=== PATIENT | female | born 1965 | race Caucasian/White ===

== ENCOUNTER → 2017-07-24 11:08 | Outpatient (CLI) | payer BC, SELFPAY ==
--- NOTE | 2017-07-24 11:11 | RAD_ITS ---
STUDY: X-RAY CHEST REASON FOR EXAM: Female, 52 years old. One-week history of chest congestion and cough. TECHNIQUE: PA and lateral views of the chest. COMPARISON: None. FINDINGS: The lungs are clear and expanded. There is no demonstrated pleural abnormality. Normal size heart. Normal mediastinum and jose. Normal visualized pulmonary arteries. Normal visualized aortic arch and descending thoracic aorta. Normal visualized thoracic spine. Normal visualized ribs, clavicles, and shoulders. There is no demonstrated abnormality of the visualized soft tissue structures of the upper abdomen. RAD/Chest PA and Lateral IMPRESSION: Normal x-ray examination of the chest. Electronically Signed: Alfonso Caputo MD at 11:34 EST Tel [phone], Service support ,
== END ==
PROVIDERS: Family Provider Internal Medicine; PCP Internal Medicine; Visit Provider Physician Assistant Surgical
DX: R09.89 Other specified symptoms and signs involving the circulatory and respiratory systems (principal)
CPT/HCPCS: 71046

== ENCOUNTER 2018-04-11 09:53 | Observation (INO) | payer OTHER, SELFPAY ==
[2018-04-11] VITALS (8 sets, daily range): BP systolic 114–147; BP diastolic 57–89; PULSE 65–112; RESP 15–18; TEMP 36.6–36.8; O2SAT 94–97; BMI 26.5; BMI 26.9
--- NOTE | 2018-04-11 10:09 | EKG12_ITS ---
Test Reason : REPEAT Blood Pressure : / mmHG Vent. Rate : 064 BPM Atrial Rate : 064 BPM P-R Int : 142 ms QRS Dur : 092 ms QT Int : 444 ms P-R-T Axes : 052 018 007 degrees QTc Int : 458 ms Normal sinus rhythm Incomplete right bundle branch block ST & T wave abnormality, consider anterior ischemia Abnormal ECG Confirmed by JANAK AKERS, CORA ([id number]), film or videotape editor BEREKET VICK ([id number]) on 04/14/2018 1:00:19 PM Referred By: SAUL Confirmed By:CORA BRICENO MD
--- NOTE | 2018-04-11 10:09 | US_ITS ---
STUDY: ABDOMINAL ULTRASOUND - RIGHT UPPER QUADRANT REASON FOR VISIT: Female, 52 years old. Right upper quadrant pain TECHNIQUE: Ultrasound evaluation of the right upper quadrant was performed with real-time and static mantilla-scale imaging. TECHNICAL QUALITY: Adequate. COMPARISON: None. FINDINGS: Liver: The liver measures 14.1 cm. There is normal echogenicity of the liver. The bile ducts are within normal limits. There is hepatic color flow. The direction of portal flow is hepatopetal. There is no demonstrated mass lesion. Gallbladder: Normal distended gallbladder. The gallbladder wall measures 2.5 mm. There is a negative sonographic Chang's sign. There is no pericholecystic fluid. There are no gallstones. Common Bile Duct (C.B.D.): The common bile duct measures 3.4 mm. Pancreas: Normal size of the head, body and tail of the pancreas. There is increased echogenicity of the pancreas. There is no demonstrated pancreatic mass or cyst. Right Kidney: Normal size of the right kidney. The right kidney measures 10.1 x 5.0 x 4.6 cm. Normal renal cortex. The right cortex measures 1.4 cm. There is no demonstrated renal mass or cyst. There is no right hydronephrosis. US/Gallbladder IMPRESSION: Normal gallbladder. No cholelithiasis or biliary dilatation. Echogenic pancreas may be due to fatty infiltration. Electronically Signed: Medhat Person DO at 12:33 EST Tel [phone], Service support ,
--- NOTE | 2018-04-11 10:20 | ED.DCSUM_ITS ---
- ER Visit Summary Date of Service: 04/11/18 Chief Complaint: Burning in lower stomach History of Present Illness: The patient is a 52 F hypothyroidism. Prior hysterectomy. Patient states she had a local area restaurant on Thursday. Since that time she has had nausea vomiting and diarrhea. No melena. No fever. No dysuria. Feels that she is dehydrated. She is also had burning chest discomfort radiating to both arms. Prior to Thursday she had no exertional chest pain or exertional dyspnea. She has no known cardiac history. Physical Examination: Middle-aged female no acute distress. Vital signs are stable. She is afebrile. She does not look septic or toxic. H EENT exam unremarkable except for dry mucous membranes. Neck nontender. No JVD no lymphadenopathy. Lungs are clear to auscultation bilaterally. Heart is regular rhythm rate about 110 no murmur. Chest wall is nontender. Abdomen is soft. Nondistended. Normal bowel sounds. She does have mild right upper quadrant tenderness. No rebound or guarding or rigidity. No Chang sign. Right lower quadrant unremarkable. There are no hernias or masses. She is moving all 4 extremities. Calves are nontender without edema. Skin is dry. No diaphoresis. Back is nontender. Neurologically she is awake and alert with no focal motor deficits. Test Results: Her initial EKG shows a sinus rhythm at a rate of 92 with inverted T waves and ST depression in V3 through V6. This is new compared to a prior EKG but the most recent EKG we have for comparison is from 2010. Ultrasound of her right upper quadrant showed no acute abnormality. No gallstones. No cholecystitis. No dilatation of the ducts or fluid. CBC normal. BMP normal. Liver enzymes normal. Lipase normal. Troponin normal. A second troponin is pending. Chest x-ray shows no acute abnormality with some right lower lobe atelectasis. Emergency Department Course and Treatment: Patient will undergo a workup both for chest pain and right upper quadrant abdominal pain. Will be treated with Toradol, a liter of fluid and Zofran. Patient had continued nausea was given a second dose of Zofran and then some Phenergan because she had continued nausea. Treatment Plan: Patient continued nausea. Her only objective finding is an abnormal EKG in leads V3 through V6. That is changed with the most recent EKG is 7 years ago. Due to her intractable nausea and the abnormal EKG I will speak to the hospitalist about admission and further evaluation. Disposition: Admission Impression: Acute abdominal pain with nausea of uncertain etiology Abnormal EKG This note was generated with [employer] Direct dictation software. It may contain incorrect words, spelling, and punctuation that were not noted in review of the chart prior to signing ED Disposition - Plan for ED Patient: Chief Complaint: Dizziness Referrals: Patel Nolasco DO [Primary Care Provider] -
--- NOTE | 2018-04-11 10:29 | RAD_ITS ---
STUDY: X-RAY CHEST REASON FOR EXAM: Female, 52 years old. Chest pain, nausea TECHNIQUE: Single AP portable view of the chest. COMPARISON: July 24, 2017 chest x-ray FINDINGS: There are chronic appearing lung markings which are slightly enhanced in the right lower lobe likely secondary to technique or atelectasis. There is no demonstrated pleural abnormality. There is borderline cardiomegaly. Normal mediastinum and jose. Normal visualized pulmonary arteries. Normal visualized aortic arch and descending thoracic aorta. Normal visualized thoracic spine. Normal visualized ribs, clavicles, and shoulders. There is no demonstrated abnormality of the visualized soft tissue structures of the upper abdomen. RAD/Chest 1 View (Portable) IMPRESSION: Chronic appearing lung markings. Right lower lobe atelectasis. Electronically Signed: Aundrea Edouard MD at 10:43 EST Tel , Service support ,
[2018-04-11] MEDS: 0.9% Normal Saline 1,000 ML 1000 ML IV (10:35)
[2018-04-11] MEDS: Ketorolac 30 MG/ML Syringe IV (10:36)
[2018-04-11] MEDS: Ondansetron 4 MG/2 ML Vial IV ×3 (10:36→17:25)
[2018-04-11 11:00] LABS: AST(SGOT) 18 U/L (15-37); Alanine Aminotransfer ALT/SGPT 22 U/L (13-56); Alkaline Phosphatase 71 U/L (45-117); Anion Gap 7 (5-15); BUN 11 mg/dL (7-18); Bilirubin, Direct 0.08 mg/dL (0.00-0.30); Calcium,Total 8.6 mg/dL (8.5-10.1); Chloride 109 mmol/L (98-107); Creatinine, Serum 0.69 mg/dL (0.55-1.02); EST Glomerular Filtration Rate 95 mL/min (>60); Est Glom Filt Rate - Afr Amer 115 mL/min (>60); Globulin 3.6 g/dL (2.2-4.2); Glucose 101 mg/dL (74-106); Lipase 53 U/L (73-393); Protein, Total 7.6 g/dL (6.4-8.2); Sodium Level 141 mmol/L (136-145)
[2018-04-11 11:02] LABS: Absolute Lymphocyte Count 1.97 X10^3/ul (0.83-4.51); Absolute Neutrophil Count 5.7 X10^3/uL (2.0-7.7); Basophil# 0.03 X10^3/uL; Basophil% 0.4 % (0-1); Eosinophil# 0.02 X10^3/uL; Eosinophils% 0.2 % (0-5); Hematocrit 36.3 % (37-47); Lymphocyte # 1.97 X10^3/ul (4.0); Lymphocyte % 24.3 % (19-41); Mean Corp Hgb Conc 33.1 g/gl (32-36); Mean Corpuscular Hgb 30.4 pg (27.0-32.0); Mean Corpuscular Volume 91.9 fL (81-99); Mean Platelet Vol. 9.1 fl (6.2-12.0); Monocyte# 0.39 X10^3/uL; Monocyte% 4.8 % (0-10); Neutrophil # 5.68 X10^3/uL (2.7-7.7); Neutrophil % 70.1 % (47-70); POSITIVE COUNT NO; POSITIVE DIFFERENTIAL NO; POSITIVE MORPHOLOGY NO; Platelet Count 257 K/mm3 (150-450); RBC Distribution Width CV 12.7 % (11.6-14.6); RBC Distribution Width SD 42.9 fl (35.1-43.9); Red Blood Count 3.95 M/mm3 (4.2-5.4); White Blood Count 8.1 K/mm3 (4.4-11.0)
--- NOTE | 2018-04-11 12:13 | EKG12_ITS ---
Test Reason : CHEST DISCOMFORT Blood Pressure : / mmHG Vent. Rate : 092 BPM Atrial Rate : 092 BPM P-R Int : 124 ms QRS Dur : 090 ms QT Int : 378 ms P-R-T Axes : 046 012 008 degrees QTc Int : 467 ms Normal sinus rhythm ST & T wave abnormality, consider anterior ischemia Prolonged QT Abnormal ECG Confirmed by JANAK AKERS, CORA ([id number]), map editor BEREKET VICK ([id number]) on 04/14/2018 1:00:37 PM Referred By: SAUL Confirmed By:CORA BRICENO MD
[2018-04-11] MEDS: proMETHazine 25 MG/ML Syringe 12.5 MG IV (13:45)
--- NOTE | 2018-04-11 14:40 | PCM.HP.STD ---
Problem List (1) Chest pain Status: Acute (2) Gastroenteritis Status: Acute History of Present Illness Date of Admission: 04/11/18 Chief Complaint: chest and abdominal pain, nausea, vomiting. The patient is a 52 year old F presents with a 5-day history of chest pain, abdominal pain, nausea, vomiting, diarrhea and abdominal bloating. Patient had symptoms but less severe in the 4 but has never had them been evaluated before. Patient stated the chest pain was across her chest and also down her arms but similar to what she said in the past. Patient was concerned because the symptoms are unresolved. Patient presented to the ED ER with the symptoms and had an EKG that showed some ST depressions in the lateral leads. Patient being admitted for further chest pain rule out and evaluation. [] Past Medical History Past Medical History (Chronic Problems): Chronic Problems (Last Reviewed 07/24/17 @ 10:55 by Bernie Malik) Tobacco use disorder (Chronic) Medical History: Medical History (Last Updated 04/11/18 @ 14:42 by Ruddy Stone DO) H/O: hysterectomy Z90.710 Anemia D64.9 Cervical cancer C53.9 H/O: hysterectomy Z98.890, Z90.710 Allergies No Known Allergies Allergy (Unverified 04/11/18 09:53) Home Medications: Ambulatory Orders Medication Instructions Recorded Unobtainable 04/11/18 Surgical History: Surgical History (Last Reviewed 04/11/18 @ 14:42 by Ruddy Stone DO) H/O knee surgery Z98.890 Surgical History: no surgical history Psychiatric History: No pertinent psych hx Lives: With Family Smoking Status: Former smoker - Quit August 23, 2017. Tobacco Use: Non-smoker Alcohol: None Drugs: None - *Family History Maternal Family History: Family History (Last Reviewed 04/11/18 @ 14:43 by Ruddy Stone DO) Other Diabetes Heart disease Review of Systems Constitutional: Reports: Anorexia. Denies: Chills, Fever Eyes: Denies: Blurred vision, Double vision HEENT: Denies: Head Aches, Sinus Congestion, Sinus Drainage Cardiovascular: Reports: Chest Pain. Denies: Edema Respiratory: Denies: Cough, Shortness of Breath Gastrointestinal: Reports: Abdominal Pain, Diarrhea, Nausea, Vomiting Genitourinary: Denies: Dysuria Musculoskeletal: Reports: Arm Pain. Denies: Leg Pain Skin: Denies: Rash, Wounds Neurological: Denies: Numbness, Tingling, Focal weakness Psychiatric: Denies: Anxiety, Depression Endocrine: Denies: Change in Body Habitus, Heat/ Cold Intolerance Hematologic/ Lymphatic: Denies: Easy Bruising, Easy Bleeding, Hx of blood clot Comment: A 10 point review of systems were negative except as mentioned in the history of present illness and the other review of systems. VTE Information - Inpt Only VTE Present on Admission: No VTE Pharm Prophylaxis ordered?: Yes Patient Problems: Active and Suspected Problems (Last Reviewed 07/24/17 @ 10:55 by Bernie Malik) Chest pain (Acute) Gastroenteritis (Acute) - Physical Exam General: Alert, Well developed, Well nourished, - - Uncomfortable. Nearly retched while was there. HEENT: Atraumatic, Normocephalic Oral: Moist Mucosa, No Gingival or Mucosal Lesions/ Ulcerations Neck: No Nodes, Thyroid Normal Size and Texture Lungs: Clear to auscultation, Normal air movement, No rhonchi, No wheeze Cardiovascular: Regular rate, Regular Rhythm, Normal S1, Normal S2, No murmurs Abdomen: Bowel Sounds Present, Soft, Hypoactive Bowel Sounds, Distended, Tender - Tender Extremities: No edema, No Calf Tenderness Skin: No rashes, No breakdown Musculoskeletal: No Tenderness to Palpation of Joints or Extremities, No Muscle Wasting Neurological: Muscle tone normal, Sensory exam intact to light touch and pain Psych/Mental Status: Appropriate, Anxious Vital Signs Temp Pulse Resp BP Pulse Ox 36.7 C 79 16 123/58 H 95 04/11/18 14:28 04/11/18 14:32 04/11/18 14:32 04/11/18 14:32 04/11/18 14:32 Oxygen Delivery Method Room Air Weight: 68.039 kg Body Mass Index (BMI) 26.5 Laboratory Tests Past 24 Hrs 04/11/18 04/11/18 04/11/18 10:30 10:30 10:50 WBC Cancelled 8.1 Corrected WBC Cancelled RBC Cancelled 3.95 L Hgb Cancelled 12.0 Hct Cancelled 36.3 L MCV Cancelled 91.9 MCH Cancelled 30.4 MCHC Cancelled 33.1 RDW Cancelled 12.7 RDW Differential Cancelled 42.9 Plt Count Cancelled 257 MPV Cancelled 9.1 Immature Gran % (Auto) Cancelled 0.200 Neut % (Auto) Cancelled 70.1 H Lymph % (Auto) Cancelled 24.3 [place] % (Auto) Cancelled 4.8 Eos % (Auto) Cancelled 0.2 Baso % (Auto) Cancelled 0.4 Immature Gran # (Auto) Cancelled Absolute Neuts (auto) Cancelled 5.7 Absolute Lymphs (auto) Cancelled 1.97 Absolute Monos (auto) Cancelled Total Counted Cancelled Not Reportable Neutrophils % (Manual) Cancelled Band Neutrophils % Cancelled Lymphocytes % (Manual) Cancelled Monocytes % (Manual) Cancelled Eosinophils % (Manual) Cancelled Basophils % (Manual) Cancelled Metamyelocytes % Cancelled Myelocytes % Cancelled Promyelocytes % Cancelled Blast Cells % Cancelled Plasma Cell % (Manual) Cancelled Other Cells % Cancelled Lymphocytes # Cancelled Nucleated RBCs/100 WBC Cancelled Differential Comment Cancelled Diff Path Review Cancelled Hypersegmented Neuts Cancelled Atypical Lymphocytes Cancelled Reactive Lymphocytes Cancelled Smudge Cells Cancelled Eosinophilia # Cancelled Basophilia # Cancelled Toxic Granulation Cancelled Dohle Bodies Cancelled Ev Rods Cancelled Platelet Estimate Cancelled Plt Morphology Comment Cancelled RBC Morphology Cancelled Polychromasia Cancelled Hypochromasia Cancelled Poikilocytosis Cancelled Basophilic Stippling Cancelled Anisocytosis Cancelled Microcytosis Cancelled Macrocytosis Cancelled Spherocytes Cancelled Sickle Cells Cancelled Target Cells Cancelled Tear Drop Cells Cancelled Ovalocytes Cancelled Stomatocytes Cancelled [place] Bodies Cancelled Idania Cells Cancelled Bite Cells Cancelled Acanthocytes (Spur) Cancelled Rouleaux Cancelled Schistocytes Cancelled Sodium 141 Potassium 4.0 Chloride 109 H Carbon Dioxide 25.0 Anion Gap 7 BUN 11 Creatinine 0.69 Estim Creat Clear Calc 78.00 Est GFR (MDRD) Af Amer 115 Est GFR (MDRD) Non-Af 95 BUN/Creatinine Ratio 16.0 Glucose 101 Calcium 8.6 Total Bilirubin 0.40 Direct Bilirubin 0.08 AST 18 ALT 22 Alkaline Phosphatase 71 Troponin I < 0.015 Total Protein 7.6 Albumin 4.0 Globulin 3.6 Lipase 53 L 04/11/18 13:29 WBC Corrected WBC RBC Hgb Hct MCV MCH MCHC RDW RDW Differential Plt Count MPV Immature Gran % (Auto) Neut % (Auto) Lymph % (Auto) [place] % (Auto) Eos % (Auto) Baso % (Auto) Immature Gran # (Auto) Absolute Neuts (auto) Absolute Lymphs (auto) Absolute Monos (auto) Total Counted Neutrophils % (Manual) Band Neutrophils % Lymphocytes % (Manual) Monocytes % (Manual) Eosinophils % (Manual) Basophils % (Manual) Metamyelocytes % Myelocytes % Promyelocytes % Blast Cells % Plasma Cell % (Manual) Other Cells % Lymphocytes # Nucleated RBCs/100 WBC Differential Comment Diff Path Review Hypersegmented Neuts Atypical Lymphocytes Reactive Lymphocytes Smudge Cells Eosinophilia # Basophilia # Toxic Granulation Dohle Bodies Ev Rods Platelet Estimate Plt Morphology Comment RBC Morphology Polychromasia Hypochromasia Poikilocytosis Basophilic Stippling Anisocytosis Microcytosis Macrocytosis Spherocytes Sickle Cells Target Cells Tear Drop Cells Ovalocytes Stomatocytes [place] Bodies [place] Cells Bite Cells Acanthocytes (Spur) Rouleaux Schistocytes Sodium Potassium Chloride Carbon Dioxide Anion Gap BUN Creatinine Estim Creat Clear Calc Est GFR (MDRD) Af Amer Est GFR (MDRD) Non-Af BUN/Creatinine Ratio Glucose Calcium Total Bilirubin Direct Bilirubin AST ALT Alkaline Phosphatase Troponin I < 0.015 Total Protein Albumin Globulin Lipase Clinical Impression(s) from Imaging Studies Gallbladder Ultrasound 04/11/18 10:09 IMPRESSION: Normal gallbladder. No cholelithiasis or biliary dilatation. Echogenic pancreas may be due to fatty infiltration. Electronically Signed: Medhat Person DO at 12:33 EST Tel [phone], Service support , Chest X-Ray 04/11/18 10:29 IMPRESSION: Chronic appearing lung markings. Right lower lobe atelectasis. Electronically Signed: Aundrea Edouard MD at 10:43 EST Tel , Service support , EKG reviewed and showed normal sinus rhythm with some ST depressions in the anterolateral leads. Assessment/Plan All Active Problems (Last Reviewed 07/24/17 @ 10:55 by Bernie Malik) Chest pain (Acute) Gastroenteritis (Acute) Acute bronchitis (Acute) Chest congestion (Acute) Maxillary sinusitis, acute (Acute) 1. Chest pain TERRENCE 3 TEODORO 122 concern for cardiac etiology cycle troponins (initial 2 negative), ASA, stress test 2. Abdominal pain cardiac v IBS v PUD v ileus/SBO v psychosomatic check abd xray PPI follow up with GI as outpt antiemetics 3. DVT proph: SCDs Discussed with patient's family at bedside. Code Visit OBSV E&M: 95096 Initial observation care L3
--- NOTE | 2018-04-11 14:44 | HP.PCM_ITS ---
Problem List (1) Chest pain Status: Acute (2) Gastroenteritis Status: Acute History of Present Illness Date of Admission: 04/11/18 Chief Complaint: chest and abdominal pain, nausea, vomiting. The patient is a 52 year old F presents with a 5-day history of chest pain, abdominal pain, nausea, vomiting, diarrhea and abdominal bloating. Patient had symptoms but less severe in the 4 but has never had them been evaluated before. Patient stated the chest pain was across her chest and also down her arms but similar to what she said in the past. Patient was concerned because the symptoms are unresolved. Patient presented to the ED ER with the symptoms and had an EKG that showed some ST depressions in the lateral leads. Patient being admitted for further chest pain rule out and evaluation. [] Past Medical History Past Medical History (Chronic Problems): Chronic Problems (Last Reviewed 07/24/17 @ 10:55 by Bernie Malik) Tobacco use disorder (Chronic) Medical History: Medical History (Last Updated 04/11/18 @ 14:42 by Ruddy Stone DO) H/O: hysterectomy Z90.710 Anemia D64.9 Cervical cancer C53.9 H/O: hysterectomy Z98.890, Z90.710 Allergies No Known Allergies Allergy (Unverified 04/11/18 09:53) Home Medications: Ambulatory Orders Medication Instructions Recorded Unobtainable 04/11/18 Surgical History: Surgical History (Last Reviewed 04/11/18 @ 14:42 by Ruddy Stone DO) H/O knee surgery Z98.890 Surgical History: no surgical history Psychiatric History: No pertinent psych hx Lives: With Family Smoking Status: Former smoker - Quit August 23, 2017. Tobacco Use: Non-smoker Alcohol: None Drugs: None - *Family History Maternal Family History: Family History (Last Reviewed 04/11/18 @ 14:43 by Ruddy Stone DO) Other Diabetes Heart disease Review of Systems Constitutional: Reports: Anorexia. Denies: Chills, Fever Eyes: Denies: Blurred vision, Double vision HEENT: Denies: Head Aches, Sinus Congestion, Sinus Drainage Cardiovascular: Reports: Chest Pain. Denies: Edema Respiratory: Denies: Cough, Shortness of Breath Gastrointestinal: Reports: Abdominal Pain, Diarrhea, Nausea, Vomiting Genitourinary: Denies: Dysuria Musculoskeletal: Reports: Arm Pain. Denies: Leg Pain Skin: Denies: Rash, Wounds Neurological: Denies: Numbness, Tingling, Focal weakness Psychiatric: Denies: Anxiety, Depression Endocrine: Denies: Change in Body Habitus, Heat/ Cold Intolerance Hematologic/ Lymphatic: Denies: Easy Bruising, Easy Bleeding, Hx of blood clot Comment: A 10 point review of systems were negative except as mentioned in the history of present illness and the other review of systems. VTE Information - Inpt Only VTE Present on Admission: No VTE Pharm Prophylaxis ordered?: Yes Patient Problems: Active and Suspected Problems (Last Reviewed 07/24/17 @ 10:55 by Bernie Malik) Chest pain (Acute) Gastroenteritis (Acute) - Physical Exam General: Alert, Well developed, Well nourished, - - Uncomfortable. Nearly retched while was there. HEENT: Atraumatic, Normocephalic Oral: Moist Mucosa, No Gingival or Mucosal Lesions/ Ulcerations Neck: No Nodes, Thyroid Normal Size and Texture Lungs: Clear to auscultation, Normal air movement, No rhonchi, No wheeze Cardiovascular: Regular rate, Regular Rhythm, Normal S1, Normal S2, No murmurs Abdomen: Bowel Sounds Present, Soft, Hypoactive Bowel Sounds, Distended, Tender - Tender Extremities: No edema, No Calf Tenderness Skin: No rashes, No breakdown Musculoskeletal: No Tenderness to Palpation of Joints or Extremities, No Muscle Wasting Neurological: Muscle tone normal, Sensory exam intact to light touch and pain Psych/Mental Status: Appropriate, Anxious Vital Signs Temp Pulse Resp BP Pulse Ox 36.7 C 79 16 123/58 H 95 04/11/18 14:28 04/11/18 14:32 04/11/18 14:32 04/11/18 14:32 04/11/18 14:32 Oxygen Delivery Method Room Air Weight: 68.039 kg Body Mass Index (BMI) 26.5 Laboratory Tests Past 24 Hrs 04/11/18 04/11/18 04/11/18 10:30 10:30 10:50 WBC Cancelled 8.1 Corrected WBC Cancelled RBC Cancelled 3.95 L Hgb Cancelled 12.0 Hct Cancelled 36.3 L MCV Cancelled 91.9 MCH Cancelled 30.4 MCHC Cancelled 33.1 RDW Cancelled 12.7 RDW Differential Cancelled 42.9 Plt Count Cancelled 257 MPV Cancelled 9.1 Immature Gran % (Auto) Cancelled 0.200 Neut % (Auto) Cancelled 70.1 H Lymph % (Auto) Cancelled 24.3 [place] % (Auto) Cancelled 4.8 Eos % (Auto) Cancelled 0.2 Baso % (Auto) Cancelled 0.4 Immature Gran # (Auto) Cancelled Absolute Neuts (auto) Cancelled 5.7 Absolute Lymphs (auto) Cancelled 1.97 Absolute Monos (auto) Cancelled Total Counted Cancelled Not Reportable Neutrophils % (Manual) Cancelled Band Neutrophils % Cancelled Lymphocytes % (Manual) Cancelled Monocytes % (Manual) Cancelled Eosinophils % (Manual) Cancelled Basophils % (Manual) Cancelled Metamyelocytes % Cancelled Myelocytes % Cancelled Promyelocytes % Cancelled Blast Cells % Cancelled Plasma Cell % (Manual) Cancelled Other Cells % Cancelled Lymphocytes # Cancelled Nucleated RBCs/100 WBC Cancelled Differential Comment Cancelled Diff Path Review Cancelled Hypersegmented Neuts Cancelled Atypical Lymphocytes Cancelled Reactive Lymphocytes Cancelled Smudge Cells Cancelled Eosinophilia # Cancelled Basophilia # Cancelled Toxic Granulation Cancelled Dohle Bodies Cancelled Ev Rods Cancelled Platelet Estimate Cancelled Plt Morphology Comment Cancelled RBC Morphology Cancelled Polychromasia Cancelled Hypochromasia Cancelled Poikilocytosis Cancelled Basophilic Stippling Cancelled Anisocytosis Cancelled Microcytosis Cancelled Macrocytosis Cancelled Spherocytes Cancelled Sickle Cells Cancelled Target Cells Cancelled Tear Drop Cells Cancelled Ovalocytes Cancelled Stomatocytes Cancelled Michel-[place] Bodies Cancelled Idania Cells Cancelled Bite Cells Cancelled Acanthocytes (Spur) Cancelled Rouleaux Cancelled Schistocytes Cancelled Sodium 141 Potassium 4.0 Chloride 109 H Carbon Dioxide 25.0 Anion Gap 7 BUN 11 Creatinine 0.69 Estim Creat Clear Calc 78.00 Est GFR (MDRD) Af Amer 115 Est GFR (MDRD) Non-Af 95 BUN/Creatinine Ratio 16.0 Glucose 101 Calcium 8.6 Total Bilirubin 0.40 Direct Bilirubin 0.08 AST 18 ALT 22 Alkaline Phosphatase 71 Troponin I < 0.015 Total Protein 7.6 Albumin 4.0 Globulin 3.6 Lipase 53 L 04/11/18 13:29 WBC Corrected WBC RBC Hgb Hct MCV MCH MCHC RDW RDW Differential Plt Count MPV Immature Gran % (Auto) Neut % (Auto) Lymph % (Auto) [place] % (Auto) Eos % (Auto) Baso % (Auto) Immature Gran # (Auto) Absolute Neuts (auto) Absolute Lymphs (auto) Absolute Monos (auto) Total Counted Neutrophils % (Manual) Band Neutrophils % Lymphocytes % (Manual) Monocytes % (Manual) Eosinophils % (Manual) Basophils % (Manual) Metamyelocytes % Myelocytes % Promyelocytes % Blast Cells % Plasma Cell % (Manual) Other Cells % Lymphocytes # Nucleated RBCs/100 WBC Differential Comment Diff Path Review Hypersegmented Neuts Atypical Lymphocytes Reactive Lymphocytes Smudge Cells Eosinophilia # Basophilia # Toxic Granulation Dohle Bodies Ev Rods Platelet Estimate Plt Morphology Comment RBC Morphology Polychromasia Hypochromasia Poikilocytosis Basophilic Stippling Anisocytosis Microcytosis Macrocytosis Spherocytes Sickle Cells Target Cells Tear Drop Cells Ovalocytes Stomatocytes Michel-[place] Bodies [place] Cells Bite Cells Acanthocytes (Spur) Rouleaux Schistocytes Sodium Potassium Chloride Carbon Dioxide Anion Gap BUN Creatinine Estim Creat Clear Calc Est GFR (MDRD) Af Amer Est GFR (MDRD) Non-Af BUN/Creatinine Ratio Glucose Calcium Total Bilirubin Direct Bilirubin AST ALT Alkaline Phosphatase Troponin I < 0.015 Total Protein Albumin Globulin Lipase Clinical Impression(s) from Imaging Studies Gallbladder Ultrasound 04/11/18 10:09 IMPRESSION: Normal gallbladder. No cholelithiasis or biliary dilatation. Echogenic pancreas may be due to fatty infiltration. Electronically Signed: Medhat Person DO at 12:33 EST Tel [phone], Service support , Chest X-Ray 04/11/18 10:29 IMPRESSION: Chronic appearing lung markings. Right lower lobe atelectasis. Electronically Signed: Aundrea Edouard MD at 10:43 EST Tel , Service support , EKG reviewed and showed normal sinus rhythm with some ST depressions in the anterolateral leads. Assessment/Plan All Active Problems (Last Reviewed 07/24/17 @ 10:55 by Bernie Malik) Chest pain (Acute) Gastroenteritis (Acute) Acute bronchitis (Acute) Chest congestion (Acute) Maxillary sinusitis, acute (Acute) 1. Chest pain * TERRENCE 3 * TEODORO 122 * concern for cardiac etiology * cycle troponins (initial 2 negative), ASA, stress test 2. Abdominal pain * cardiac v IBS v PUD v ileus/SBO v psychosomatic * check abd xray * PPI * follow up with GI as outpt * antiemetics 3. DVT proph: SCDs Discussed with patient's family at bedside. Code Visit OBSV E&M: 56570 Initial observation care L3
--- NOTE | 2018-04-11 16:00 | EKG12_ITS ---
Test Reason : CP ADMISSION Blood Pressure : / mmHG Vent. Rate : 068 BPM Atrial Rate : 068 BPM P-R Int : 142 ms QRS Dur : 082 ms QT Int : 434 ms P-R-T Axes : 031 002 -11 degrees QTc Int : 461 ms Normal sinus rhythm ST & T wave abnormality, consider anterior ischemia Prolonged QT Abnormal ECG When compared with ECG of 19-MAR-2011 21:57, T wave inversion now evident in Anterior leads Confirmed by JANAK AKERS, CORA ([id number]), newspaper copy editor BEREKET VICK ([id number]) on 04/16/2018 1:57:24 PM Referred By: MIK Confirmed By:CORA BRICENO MD
--- NOTE | 2018-04-11 16:18 | RAD_ITS ---
STUDY: X-RAY - ABDOMEN/PELVIS REASON FOR EXAM: Female, 52 years old. Diarrhea. TECHNIQUE: Single AP view of the abdomen / pelvis. COMPARISON: None. FINDINGS: Normal visualized lung bases. There is an unremarkable bowel gas pattern. There is no demonstrated free abdominal air. The visualized liver, spleen and kidneys are grossly normal in size and morphology. Normal soft tissue structures. Normal visualized osseous structures. RAD/Abdomen Single View (Portable) IMPRESSION: Normal x-ray examination of the abdomen and pelvis. Electronically Signed: Myles Diallo MD at 17:01 EST , Service support ,
[2018-04-11] MEDS: 0.9% Normal Saline 1,000 ML 125 ML IV (16:56)
[2018-04-11] MEDS: Aspirin 81 MG TAB.CHEW 324 MG PO (17:31)
[2018-04-11] MEDS: 0.9% NaCl Peripheral Flush Adult/Peds IV (21:53)
[2018-04-11] MEDS: proMETHazine 25 MG/ML Syringe 6.25 MG IV (21:53)
[2018-04-12] VITALS (10 sets, daily range): BP systolic 110–123; BP diastolic 57–74; PULSE 60–76; RESP 16; TEMP 35.7–37.2; O2SAT 95–96
[2018-04-12] MEDS: 0.9% Normal Saline 1,000 ML 125 ML IV ×3 (00:29→19:46)
[2018-04-12 05:26] LABS: Hematocrit 32.5 % (37-47); Hemoglobin 10.9 g/dl (12.0-15.0); Mean Corp Hgb Conc 33.5 g/gl (32-36); Mean Corpuscular Hgb 31.1 pg (27.0-32.0); Mean Corpuscular Volume 92.6 fL (81-99); Mean Platelet Vol. 9.1 fl (6.2-12.0); Platelet Count 275 K/mm3 (150-450); RBC Distribution Width CV 12.6 % (11.6-14.6); RBC Distribution Width SD 40.7 fl (35.1-43.9); Red Blood Count 3.51 M/mm3 (4.2-5.4); White Blood Count 6.7 K/mm3 (4.4-11.0)
[2018-04-12 05:32] LABS: International Normalized Ratio 1.3; Partial Thromboplast Time 32.9 Seconds (24.1-36.2); Prothrombin Time (Protime)PT. 15.7 SECONDS (11.7-14.9)
[2018-04-12 05:35] LABS: Anion Gap 10 (5-15); BUN 13 mg/dL (7-18); BUN/Creat Ratio 18.6 RATIO (10-20); Calcium,Total 7.5 mg/dL (8.5-10.1); Chloride 113 mmol/L (98-107); EST Glomerular Filtration Rate 93 mL/min (>60); Est Glom Filt Rate - Afr Amer 112 mL/min (>60); Estimated Creatinine Clearance 76.88 ml/min; Glucose 89 mg/dL (74-106); Potassium 3.3 mmol/L (3.5-5.1); Sodium Level 146 mmol/L (136-145)
[2018-04-12 05:43] LABS: Cholesterol 146 mg/dL (200); High Density Lipoprotein 36 mg/dL; Triglycerides 164 mg/dL; Very Low Density Lipoprotein 33 mg/dL (5-40)
[2018-04-12 05:45] LABS: Scan Indicated on CBC? Y/N NO
--- NOTE | 2018-04-12 05:55 | STE_ITS ---
Reason For Study: Chest Pain Stress Results Protocol: Dobutamine Stress Echo Maximum Predicted HR: 167 bpm Target HR: 142 bpm % Maximum Predicted HR: 86 % DurationHeart Rate Stage (mm:ss) (bpm) BP Comment Baseline 70 141/72No Chest Pain DSE 10 MCG 3:00 67 120/59No Chest Pain DSE 20 MCG 3:00 97 135/69No Chest Pain DSE 30 MCG 3:00 123 182/63No Chest Pain DSE 40 MCG 2:36 144 165/67No Chest Pain Recovery 93 131/59No Chest Pain Stress Duration: 11:36 mm:ss Maximum Stress HR: 144 bpm METS: 1 Baseline Echocardiogram Findings Stress Echo Wall motion Data Resting WM Intermediate WM Stress WM Resting Wall Motion Wall Motion Stress No regional wall motion No regional wall motion abnormalities noted. abnormalities noted. Ejection Fraction 60 %. Ejection Fraction 75 %. Stress Results Normal blood pressure response to dobutamine. Drug infusion was stopped due to achievement of target heart rate. Interpretation Summary Dobutamine stress echocardiogram. Resting EKG demonstrates normal sinus rhythm with a rate of 66 bpm resting blood pressure 141/72 mmHg. Dobutamine was infused per usual protocol starting at 10 mcg/kg/min increasing in 3-minute aliquots to a peak of 40 mcg/kg/min. The maximum heart rate attained was 150 bpm which was 89% of maximum predicted heart rate the maximum workload was 1 metabolic equivalent. The patient maintained sinus rhythm throughout the recording. At rest there were no ST or T wave changes noted suggest ischemia at peak exercise nonspecific ST-T wave changes were noted with no meet the criteria for ischemia. The resting blood pressure is 120/59 with a peak blood pressure 182/63 mmHg. Resting echocardiogram. The resting echocardiogram demonstrated normal ejection fraction of 60% with no wall motion abnormalities noted. The stress echocardiogram demonstrated thickening of all francisco reduction of left ventricular cavity size and peaking of ejection fraction of 75%. No wall motion abnormalities were noted. Conclusion: Normal dobutamine stress echocardiogram with no evidence of ischemia. Ordering Physician: Ruddy Stone Referring Physician: Eduardo Perkins Performed By: Alpa Gray RDCS
--- NOTE | 2018-04-12 05:55 | EKG12_ITS ---
Test Reason : AM EKG Blood Pressure : / mmHG Vent. Rate : 069 BPM Atrial Rate : 069 BPM P-R Int : 158 ms QRS Dur : 082 ms QT Int : 434 ms P-R-T Axes : 058 018 -18 degrees QTc Int : 465 ms Normal sinus rhythm ST & T wave abnormality, consider anterior ischemia Prolonged QT Abnormal ECG When compared with ECG of 11-APR-2018 15:58, MANUAL COMPARISON REQUIRED, DATA IS UNCONFIRMED Confirmed by JANAK AKERS, CORA ([id number]), editor producer BEREKET VICK ([id number]) on 04/16/2018 1:56:29 PM Referred By: MIK Confirmed By:CORA BRICENO MD
[2018-04-12] MEDS: Aspirin E.C. 81 MG Tablet PO (06:22)
[2018-04-12] MEDS: Ondansetron 4 MG/2 ML Vial IV (08:03)
[2018-04-12] MEDS: 0.9% NaCl Peripheral Flush Adult/Peds IV ×3 (08:03→21:27)
[2018-04-12] MEDS: Acetaminophen 325 MG Tablet 650 MG PO (13:21)
[2018-04-12] MEDS: Enoxaparin 40 MG/0.4 ML Syringe SC (13:23)
--- NOTE | 2018-04-12 13:40 | PCM.PN.HOSP ---
Patient Problems: Active and Suspected Problems (Last Updated 04/11/18 @ 14:42 by Ruddy Stone DO) Chest pain (Acute) Gastroenteritis (Acute) Subjective: Patient is to complain of burning bilateral chest pain and epigastric pain along with nausea, belching and dyspeptic symptoms. She had diarrhea for last 5 days, watery, nonbloody, burning epigastric pain, chills and feeling dehydrated. She does not feel enough energy to stand up or walk. Vitals/I&O's: Vital Signs Temp Pulse Resp BP Pulse Ox 98.2 F 76 16 123/57 H 95 04/12/18 09:30 04/12/18 12:32 04/12/18 09:30 04/12/18 09:30 04/12/18 09:30 Oxygen Delivery Method Room Air Weight: 151 lb 10.848 oz Body Mass Index (BMI) 26.9 Intake and Output for Last 24 Hours 04/10/18 04/11/18 04/12/18 23:59 23:59 23:59 Intake Total 490 / 490 3104 / 3104 Balance 490 / 490 3104 / 3104 General: Alert, Oriented x3, Cooperative HEENT: Atraumatic, PERRLA, EOMI, Normocephalic Neck: Supple, No JVD, Negative Carotid Bruits Lungs: Clear to auscultation, Normal air movement, No rhonchi, No wheeze, No rales Cardiovascular: Regular rate, Regular Rhythm, Normal S1, Normal S2, No murmurs Abdomen: Bowel Sounds Present, Soft, Non-Distended, Tender - Deep tenderness present over epigastric region. No guarding/rigidity. Extremities: No edema, Capillary Refill Less than 3 Seconds Skin: No rashes, No breakdown Musculoskeletal: No Tenderness to Palpation of Joints or Extremities Neurological: Cranial nerves II-XII grossly intact Psych/Mental Status: Normal Affect, Appropriate Laboratory Results 04/11/18 13:29: Troponin I < 0.015 04/11/18 18:33: Troponin I < 0.015 04/12/18 04:59: Triglycerides 164, Cholesterol 146, LDL Cholesterol 77, VLDL Cholesterol 33, HDL Cholesterol 36 L 04/12/18 04:59: WBC 6.7, RBC 3.51 L, Hgb 10.9 L, Hct 32.5 L, MCV 92.6, MCH 31.1, MCHC 33.5, RDW 12.6, RDW Differential 40.7, Plt Count 275, MPV 9.1 04/12/18 04:59: PT 15.7 H, INR 1.3, APTT 32.9 04/12/18 04:59: Sodium 146 H, Potassium 3.3 L, Chloride 113 H, Carbon Dioxide 23.0, Anion Gap 10, BUN 13, Creatinine 0.70, Estim Creat Clear Calc 76.88, Est GFR (MDRD) Af Amer 112, Est GFR (MDRD) Non-Af 93, BUN/Creatinine Ratio 18.6, Glucose 89, Calcium 7.5 L Current Medications Acetaminophen (Tylenol) 650 mg PO Q6H PRN PRN PRN Reason: Mild Pain (1-3)/Temp > 100.7 F Last Admin: 04/12/18 13:21 Dose: 650 mg Aspirin (Ecotrin) 81 mg PO DAILY@0800 [facility] Last Admin: 04/12/18 06:22 Dose: 81 mg Enoxaparin Sodium (Lovenox) 40 mg SC DAILY@1000 [facility] Last Admin: 04/12/18 13:23 Dose: 40 mg Sodium Chloride () 1,000 mls @ 125 mls/hr IV .Q8H [facility] Last Admin: 04/12/18 08:00 Dose: 125 mls/hr Magnesium Hydroxide (Milk Of Magnesia) 30 ml PO DAILY PRN PRN Reason: Constipation Morphine Sulfate () 2 - 4 mg IV Q4H PRN PRN PRN Reason: MOD-SEVERE PAIN (4-10/10) Nitroglycerin (Nitrostat) 0.4 mg SUBLINGUAL Q5M PRN PRN Reason: CHEST PAIN Ondansetron HCl (Zofran) 4 mg IV Q8H PRN PRN PRN Reason: NAUSEA Last Admin: 04/12/18 08:03 Dose: 4 mg Promethazine HCl (Phenergan) 6.25 mg IV Q6H PRN PRN PRN Reason: NAUSEA/VOMITING Last Admin: 04/11/18 21:53 Dose: 6.25 mg Simethicone (Mylicon) 80 mg PO TIDPC [facility] Last Admin: 04/12/18 13:21 Dose: 80 mg Sodium Chloride () 5 - 30 ml IV UD PRN PRN Reason: SALINE FLUSH Last Admin: 04/12/18 08:03 Dose: 10 ml Medical Necessity - Tobacco Use Smoking Status: Former smoker Tobacco Use: Non-smoker Assessment/Plan All Active Problems (Last Updated 04/11/18 @ 14:42 by Ruddy Stone DO) Maxillary sinusitis, acute (Acute) Chest congestion (Acute) Acute bronchitis (Acute) Chest pain (Acute) Gastroenteritis (Acute) The patient is a 52 year old F presents with a 5-day history of burning type, bilateral chest pain, abdominal pain, nausea, vomiting, diarrhea and abdominal bloating. In ED, EKG that showed some ST depressions in the lateral leads. The patient was further admitted in PCU. 1. Atypical bilateral chest pain, epigastric abdominal pain probably related to GI/gastritis/PUD: Patient is admitted to PCU. Patient never had EGD. LFTs were normal. Right upper quadrant does not show calculus or biliary dilatation. On IV Protonix 40 mg q 12 hourly. Stool studies including C. difficile and enteric bacteriology panel ordered. Normal right upper quadrant and KUB x-ray. Discussed with surgeon Dr. Sanchez and she agreed to see the patient for possible EGD 2. Abnormal EKG changes with ST depression lateral leads: Patient had nuclear stress test did not show ischemia and was negative. Serial troponin enzymes negative. ACS ruled out. 3. Mild hypokalemia: Potassium being replaced. DVT prophylaxis: On Lovenox 40 mils subcu daily. Clinical Impression(s) from Imaging Studies Gallbladder Ultrasound 04/11/18 10:09 IMPRESSION: Normal gallbladder. No cholelithiasis or biliary dilatation. Echogenic pancreas may be due to fatty infiltration. Chest X-Ray 04/11/18 10:29 IMPRESSION: Chronic appearing lung markings. Right lower lobe atelectasis. KUB X-Ray 04/11/18 16:18 IMPRESSION: Normal x-ray examination of the abdomen and pelvis. Code Visit OBSV E&M: 63760 Subsequent observation care L2
--- NOTE | 2018-04-12 13:47 | PN_ITS ---
Patient Problems: Active and Suspected Problems (Last Updated 04/11/18 @ 14:42 by Ruddy Stone DO) Chest pain (Acute) Gastroenteritis (Acute) Subjective: Patient is to complain of burning bilateral chest pain and epigastric pain along with nausea, belching and dyspeptic symptoms. She had diarrhea for last 5 days, watery, nonbloody, burning epigastric pain, chills and feeling dehydrated. She does not feel enough energy to stand up or walk. Vitals/I&O's: Vital Signs Temp Pulse Resp BP Pulse Ox 98.2 F 76 16 123/57 H 95 04/12/18 09:30 04/12/18 12:32 04/12/18 09:30 04/12/18 09:30 04/12/18 09:30 Oxygen Delivery Method Room Air Weight: 151 lb 10.848 oz Body Mass Index (BMI) 26.9 Intake and Output for Last 24 Hours 04/10/18 04/11/18 04/12/18 23:59 23:59 23:59 Intake Total 490 / 490 3104 / 3104 Balance 490 / 490 3104 / 3104 General: Alert, Oriented x3, Cooperative HEENT: Atraumatic, PERRLA, EOMI, Normocephalic Neck: Supple, No JVD, Negative Carotid Bruits Lungs: Clear to auscultation, Normal air movement, No rhonchi, No wheeze, No rales Cardiovascular: Regular rate, Regular Rhythm, Normal S1, Normal S2, No murmurs Abdomen: Bowel Sounds Present, Soft, Non-Distended, Tender - Deep tenderness present over epigastric region. No guarding/rigidity. Extremities: No edema, Capillary Refill Less than 3 Seconds Skin: No rashes, No breakdown Musculoskeletal: No Tenderness to Palpation of Joints or Extremities Neurological: Cranial nerves II-XII grossly intact Psych/Mental Status: Normal Affect, Appropriate Laboratory Results 04/11/18 13:29: Troponin I < 0.015 04/11/18 18:33: Troponin I < 0.015 04/12/18 04:59: Triglycerides 164, Cholesterol 146, LDL Cholesterol 77, VLDL Cholesterol 33, HDL Cholesterol 36 L 04/12/18 04:59: WBC 6.7, RBC 3.51 L, Hgb 10.9 L, Hct 32.5 L, MCV 92.6, MCH 31.1, MCHC 33.5, RDW 12.6, RDW Differential 40.7, Plt Count 275, MPV 9.1 04/12/18 04:59: PT 15.7 H, INR 1.3, APTT 32.9 04/12/18 04:59: Sodium 146 H, Potassium 3.3 L, Chloride 113 H, Carbon Dioxide 23.0, Anion Gap 10, BUN 13, Creatinine 0.70, Estim Creat Clear Calc 76.88, Est GFR (MDRD) Af Amer 112, Est GFR (MDRD) Non-Af 93, BUN/Creatinine Ratio 18.6, Glucose 89, Calcium 7.5 L Current Medications Acetaminophen (Tylenol) 650 mg PO Q6H PRN PRN PRN Reason: Mild Pain (1-3)/Temp > 100.7 F Last Admin: 04/12/18 13:21 Dose: 650 mg Aspirin (Ecotrin) 81 mg PO DAILY@0800 [facility] Last Admin: 04/12/18 06:22 Dose: 81 mg Enoxaparin Sodium (Lovenox) 40 mg SC DAILY@1000 [facility] Last Admin: 04/12/18 13:23 Dose: 40 mg Sodium Chloride () 1,000 mls @ 125 mls/hr IV .Q8H [facility] Last Admin: 04/12/18 08:00 Dose: 125 mls/hr Magnesium Hydroxide (Milk Of Magnesia) 30 ml PO DAILY PRN PRN Reason: Constipation Morphine Sulfate () 2 - 4 mg IV Q4H PRN PRN PRN Reason: MOD-SEVERE PAIN (4-10/10) Nitroglycerin (Nitrostat) 0.4 mg SUBLINGUAL Q5M PRN PRN Reason: CHEST PAIN Ondansetron HCl (Zofran) 4 mg IV Q8H PRN PRN PRN Reason: NAUSEA Last Admin: 04/12/18 08:03 Dose: 4 mg Promethazine HCl (Phenergan) 6.25 mg IV Q6H PRN PRN PRN Reason: NAUSEA/VOMITING Last Admin: 04/11/18 21:53 Dose: 6.25 mg Simethicone (Mylicon) 80 mg PO TIDPC [facility] Last Admin: 04/12/18 13:21 Dose: 80 mg Sodium Chloride () 5 - 30 ml IV UD PRN PRN Reason: SALINE FLUSH Last Admin: 04/12/18 08:03 Dose: 10 ml Medical Necessity - Tobacco Use Smoking Status: Former smoker Tobacco Use: Non-smoker Assessment/Plan All Active Problems (Last Updated 04/11/18 @ 14:42 by Ruddy Stone DO) Maxillary sinusitis, acute (Acute) Chest congestion (Acute) Acute bronchitis (Acute) Chest pain (Acute) Gastroenteritis (Acute) The patient is a 52 year old F presents with a 5-day history of burning type, bilateral chest pain, abdominal pain, nausea, vomiting, diarrhea and abdominal bloating. In ED, EKG that showed some ST depressions in the lateral leads. The patient was further admitted in PCU. 1. Atypical bilateral chest pain, epigastric abdominal pain probably related to GI/gastritis/PUD: Patient is admitted to PCU. Patient never had EGD. LFTs were normal. Right upper quadrant does not show calculus or biliary dilatation. On IV Protonix 40 mg q 12 hourly. Stool studies including C. difficile and enteric bacteriology panel ordered. Normal right upper quadrant and KUB x-ray. Discussed with surgeon Dr. Sanchez and she agreed to see the patient for possible EGD 2. Abnormal EKG changes with ST depression lateral leads: Patient had nuclear stress test did not show ischemia and was negative. Serial troponin enzymes negative. ACS ruled out. 3. Mild hypokalemia: Potassium being replaced. DVT prophylaxis: On Lovenox 40 mils subcu daily. Clinical Impression(s) from Imaging Studies Gallbladder Ultrasound 04/11/18 10:09 IMPRESSION: Normal gallbladder. No cholelithiasis or biliary dilatation. Echogenic pancreas may be due to fatty infiltration. Chest X-Ray 04/11/18 10:29 IMPRESSION: Chronic appearing lung markings. Right lower lobe atelectasis. KUB X-Ray 04/11/18 16:18 IMPRESSION: Normal x-ray examination of the abdomen and pelvis. Code Visit OBSV E&M: 83926 Subsequent observation care L2
[2018-04-12] MEDS: proMETHazine 25 MG/ML Syringe 6.25 MG IV ×2 (14:47→21:26)
[2018-04-12] MEDS: Morphine 2 MG/ML Syringe IV (17:46)
--- NOTE | 2018-04-12 18:00 | PCM.CONS.GEN ---
Reason for Consult Date of Consultation: 04/12/18 History of Present Illness: The patient is a 52 year old F admitted due to nausea and vomiting, burning chest pain bilaterally. Patient did have a workup with negative stress test after abnormal EKG, normal troponins, right upper quadrant ultrasound was also negative, normal LFTs. Patient complains of nausea and vomiting since last Thursday after eating a salad. Patient states in the past she would have acid reflux with burning in her epigastrium and up her esophagus that may last for a day or 2 she does seem to think it happens more often after eating solids. Currently also complains of burping, bloating, and diarrhea for the last several days. Pt has been on PPI IV and simethicone. Patient does take Mobic 15 mg daily and only takes ibuprofen when she has a headache may be a couple times a week. Past Medical History Past Medical History (Chronic Problems): Chronic Problems (Last Updated 04/11/18 @ 14:42 by Ruddy Stone DO) Tobacco use disorder (Chronic) Medical History: Medical History (Last Updated 04/11/18 @ 14:42 by Ruddy Stone DO) H/O: hysterectomy Z90.710 Anemia D64.9 Cervical cancer C53.9 H/O: hysterectomy Z98.890, Z90.710 Allergies No Known Allergies Allergy (Unverified 04/11/18 09:53) Home Medications: Ambulatory Orders Medication Instructions Recorded Biest 0.1 ml TOPICAL DAILY 04/12/18 Gabapentin [Neurontin] 300 mg PO QHS 04/12/18 Meloxicam [Mobic] 15 mg PO DAILY 04/12/18 Progesterone,Micronized 200 mg PO DAILY 04/12/18 [Prometrium] Terbinafine HCl 250 mg PO DAILY 04/12/18 Testosterone 0.25 mg TOPICAL DAILY 04/12/18 Thyroid,Pork [[place] Thyroid] 30 mg PO DAILY 04/12/18 Surgical History: Surgical History (Last Reviewed 04/11/18 @ 14:42 by Ruddy Stone DO) H/O knee surgery Z98.890 Surgical History: - - colonoscopy within the last year, right knee Psychiatric History: No pertinent psych hx Lives: With Family Smoking Status: Former smoker Tobacco Use: Non-smoker Alcohol: None Drugs: None - *Family History Maternal Family History: Family History (Last Reviewed 04/11/18 @ 14:43 by Ruddy Stone DO) Other Diabetes Heart disease Review of Systems Constitutional: Denies: Chills, Fever HEENT: Denies: Difficulty Swallowing Cardiovascular: Reports: Chest Pain - burning occ Gastrointestinal: Reports: Abdominal Pain, Diarrhea, Dyspepsia Genitourinary: Denies: Dysuria Psychiatric: Denies: Depression Hematologic/ Lymphatic: Denies: Easy Bruising, Easy Bleeding Patient Problems: Active and Suspected Problems (Last Updated 04/11/18 @ 14:42 by Ruddy Stone DO) Chest pain (Acute) Gastroenteritis (Acute) - Physical Exam General: Alert, Oriented x3, Cooperative, No apparent distress HEENT: Atraumatic Lungs: Normal air movement Cardiovascular: Regular rate Abdomen: Soft, Non-Distended, Tender - Minimally bilateral lower quadrants, no peritoneal signs Extremities: No clubbing, No cyanosis, No edema Neurological: Cranial nerves II-XII grossly intact Psych/Mental Status: Normal Affect Vital Signs Temp Pulse Resp BP Pulse Ox 98.9 F 71 16 122/60 H 96 04/12/18 14:15 04/12/18 16:09 04/12/18 14:15 04/12/18 14:15 04/12/18 14:15 Oxygen Delivery Method Room Air Weight: 151 lb 10.848 oz Body Mass Index (BMI) 26.9 Intake and Output for Last 24 Hours 04/10/18 04/11/18 04/12/18 23:59 23:59 23:59 Intake Total 490 / 490 4481 / 4481 Balance 490 / 490 4481 / 4481 Microbiology Past 72 Hours 04/12/18 13:10 Stool Occult Blood (EBNJAMÍN) - Final Stool 04/12/18 13:10 Stool Lactoferrin - Final Stool Laboratory Tests Past 24 Hrs 04/11/18 04/12/18 04/12/18 18:33 04:59 04:59 WBC 6.7 RBC 3.51 L Hgb 10.9 L Hct 32.5 L MCV 92.6 MCH 31.1 MCHC 33.5 RDW 12.6 RDW Differential 40.7 Plt Count 275 MPV 9.1 PT INR APTT Sodium Potassium Chloride Carbon Dioxide Anion Gap BUN Creatinine Estim Creat Clear Calc Est GFR (MDRD) Af Amer Est GFR (MDRD) Non-Af BUN/Creatinine Ratio Glucose Calcium Troponin I < 0.015 Triglycerides 164 Cholesterol 146 LDL Cholesterol 77 VLDL Cholesterol 33 HDL Cholesterol 36 L 04/12/18 04/12/18 04:59 04:59 WBC RBC Hgb Hct MCV MCH MCHC RDW RDW Differential Plt Count MPV PT 15.7 H INR 1.3 APTT 32.9 Sodium 146 H Potassium 3.3 L Chloride 113 H Carbon Dioxide 23.0 Anion Gap 10 BUN 13 Creatinine 0.70 Estim Creat Clear Calc 76.88 Est GFR (MDRD) Af Amer 112 Est GFR (MDRD) Non-Af 93 BUN/Creatinine Ratio 18.6 Glucose 89 Calcium 7.5 L Troponin I Triglycerides Cholesterol LDL Cholesterol VLDL Cholesterol HDL Cholesterol Assessment/Plan All Active Problems (Last Updated 04/11/18 @ 14:42 by Ruddy Stone DO) Maxillary sinusitis, acute (Acute) Chest congestion (Acute) Acute bronchitis (Acute) Chest pain (Acute) Gastroenteritis (Acute) 52-year-old female with nausea vomiting, history of GERD, occasional burning across her chest with a negative cardiac workup, complained of bilateral lower abdominal pain/burning 1. Patient's history does sound like she has some acid reflux in the past. However unsure how this would relate to this lower abdominal pain which she said is newer. Patient states she has had a colonoscopy about 3 months ago however it was known by Dr. Garcia right before he moved which was more like December of last year however patient states it was normal. I have offered the patient EGD for evaluation. Scheduled for 11:30 AM tomorrow I have explained the risks/benefits of the procedure and described the procedure. I have discussed the risks with the patient, including but not limited to: infection, bleeding, perforation of the GI tract requiring emergency surgery, inability to complete the procedure, injury to any internal organs, complications of anesthesia, etc. - the patient understands and agrees to proceed. I have answered all the patient's questions to the patient's satisfaction and the patient has no further questions. Peggy Sanchez M.D. Pager: [phone] [facility] [address] [place] [address], [facility], [address] [place] [address] Office: [phone] Code Visit Inpatient E&M: 43976 Init Hosp L1
--- NOTE | 2018-04-12 18:05 | CON.PCM_ITS ---
Reason for Consult Date of Consultation: 04/12/18 History of Present Illness: The patient is a 52 year old F admitted due to nausea and vomiting, burning chest pain bilaterally. Patient did have a workup with negative stress test after abnormal EKG, normal troponins, right upper quadrant ultrasound was also negative, normal LFTs. Patient complains of nausea and vomiting since last Thursday after eating a salad. Patient states in the past she would have acid reflux with burning in her epigastrium and up her esophagus that may last for a day or 2 she does seem to think it happens more often after eating solids. Currently also complains of burping, bloating, and diarrhea for the last several days. Pt has been on PPI IV and simethicone. Patient does take Mobic 15 mg daily and only takes ibuprofen when she has a headache may be a couple times a week. Past Medical History Past Medical History (Chronic Problems): Chronic Problems (Last Updated 04/11/18 @ 14:42 by Ruddy Stone DO) Tobacco use disorder (Chronic) Medical History: Medical History (Last Updated 04/11/18 @ 14:42 by Ruddy Stone DO) H/O: hysterectomy Z90.710 Anemia D64.9 Cervical cancer C53.9 H/O: hysterectomy Z98.890, Z90.710 Allergies No Known Allergies Allergy (Unverified 04/11/18 09:53) Home Medications: Ambulatory Orders Medication Instructions Recorded Biest 0.1 ml TOPICAL DAILY 04/12/18 Gabapentin [Neurontin] 300 mg PO QHS 04/12/18 Meloxicam [Mobic] 15 mg PO DAILY 04/12/18 Progesterone,Micronized 200 mg PO DAILY 04/12/18 [Prometrium] Terbinafine HCl 250 mg PO DAILY 04/12/18 Testosterone 0.25 mg TOPICAL DAILY 04/12/18 Thyroid,Pork [[place] Thyroid] 30 mg PO DAILY 04/12/18 Surgical History: Surgical History (Last Reviewed 04/11/18 @ 14:42 by Ruddy Stone DO) H/O knee surgery Z98.890 Surgical History: - - colonoscopy within the last year, right knee Psychiatric History: No pertinent psych hx Lives: With Family Smoking Status: Former smoker Tobacco Use: Non-smoker Alcohol: None Drugs: None - *Family History Maternal Family History: Family History (Last Reviewed 04/11/18 @ 14:43 by Ruddy Stone DO) Other Diabetes Heart disease Review of Systems Constitutional: Denies: Chills, Fever HEENT: Denies: Difficulty Swallowing Cardiovascular: Reports: Chest Pain - burning occ Gastrointestinal: Reports: Abdominal Pain, Diarrhea, Dyspepsia Genitourinary: Denies: Dysuria Psychiatric: Denies: Depression Hematologic/ Lymphatic: Denies: Easy Bruising, Easy Bleeding Patient Problems: Active and Suspected Problems (Last Updated 04/11/18 @ 14:42 by Ruddy Stone DO) Chest pain (Acute) Gastroenteritis (Acute) - Physical Exam General: Alert, Oriented x3, Cooperative, No apparent distress HEENT: Atraumatic Lungs: Normal air movement Cardiovascular: Regular rate Abdomen: Soft, Non-Distended, Tender - Minimally bilateral lower quadrants, no peritoneal signs Extremities: No clubbing, No cyanosis, No edema Neurological: Cranial nerves II-XII grossly intact Psych/Mental Status: Normal Affect Vital Signs Temp Pulse Resp BP Pulse Ox 98.9 F 71 16 122/60 H 96 04/12/18 14:15 04/12/18 16:09 04/12/18 14:15 04/12/18 14:15 04/12/18 14:15 Oxygen Delivery Method Room Air Weight: 151 lb 10.848 oz Body Mass Index (BMI) 26.9 Intake and Output for Last 24 Hours 04/10/18 04/11/18 04/12/18 23:59 23:59 23:59 Intake Total 490 / 490 4481 / 4481 Balance 490 / 490 4481 / 4481 Microbiology Past 72 Hours 04/12/18 13:10 Stool Occult Blood (BENJAMÍN) - Final Stool 04/12/18 13:10 Stool Lactoferrin - Final Stool Laboratory Tests Past 24 Hrs 04/11/18 04/12/18 04/12/18 18:33 04:59 04:59 WBC 6.7 RBC 3.51 L Hgb 10.9 L Hct 32.5 L MCV 92.6 MCH 31.1 MCHC 33.5 RDW 12.6 RDW Differential 40.7 Plt Count 275 MPV 9.1 PT INR APTT Sodium Potassium Chloride Carbon Dioxide Anion Gap BUN Creatinine Estim Creat Clear Calc Est GFR (MDRD) Af Amer Est GFR (MDRD) Non-Af BUN/Creatinine Ratio Glucose Calcium Troponin I < 0.015 Triglycerides 164 Cholesterol 146 LDL Cholesterol 77 VLDL Cholesterol 33 HDL Cholesterol 36 L 04/12/18 04/12/18 04:59 04:59 WBC RBC Hgb Hct MCV MCH MCHC RDW RDW Differential Plt Count MPV PT 15.7 H INR 1.3 APTT 32.9 Sodium 146 H Potassium 3.3 L Chloride 113 H Carbon Dioxide 23.0 Anion Gap 10 BUN 13 Creatinine 0.70 Estim Creat Clear Calc 76.88 Est GFR (MDRD) Af Amer 112 Est GFR (MDRD) Non-Af 93 BUN/Creatinine Ratio 18.6 Glucose 89 Calcium 7.5 L Troponin I Triglycerides Cholesterol LDL Cholesterol VLDL Cholesterol HDL Cholesterol Assessment/Plan All Active Problems (Last Updated 04/11/18 @ 14:42 by Ruddy Stone DO) Maxillary sinusitis, acute (Acute) Chest congestion (Acute) Acute bronchitis (Acute) Chest pain (Acute) Gastroenteritis (Acute) 52-year-old female with nausea vomiting, history of GERD, occasional burning across her chest with a negative cardiac workup, complained of bilateral lower abdominal pain/burning 1. Patient's history does sound like she has some acid reflux in the past. However unsure how this would relate to this lower abdominal pain which she said is newer. Patient states she has had a colonoscopy about 3 months ago however it was known by Dr. Garcia right before he moved which was more like December of last year however patient states it was normal. I have offered the patient EGD for evaluation. Scheduled for 11:30 AM tomorrow I have explained the risks/benefits of the procedure and described the procedure. I have discussed the risks with the patient, including but not limited to: infection, bleeding, perforation of the GI tract requiring emergency surgery, inability to complete the procedure, injury to any internal organs, complications of anesthesia, etc. - the patient understands and agrees to proceed. I have answered all the patient's questions to the patient's satisfaction and the patient has no further questions. Peggy Sanchez M.D. Pager: [phone] [facility] [address] [place] [address], [facility], [address] [place] [address] Office: [phone] Code Visit Inpatient E&M: 23579 Init Hosp L1
[2018-04-13] VITALS (10 sets, daily range): BP systolic 103–141; BP diastolic 59–89; PULSE 62–98; RESP 14–16; TEMP 36.1–36.8; O2SAT 94–98; BMI 26.9
[2018-04-13] MEDS: 0.9% Normal Saline 1,000 ML 125 ML IV (03:42)
[2018-04-13 06:52] LABS: Anion Gap 10 (5-15); BUN 6 mg/dL (7-18); BUN/Creat Ratio 9.4 RATIO (10-20); Calcium,Total 7.6 mg/dL (8.5-10.1); Chloride 114 mmol/L (98-107); Creatinine, Serum 0.64 mg/dL (0.55-1.02); EST Glomerular Filtration Rate 103 mL/min (>60); Est Glom Filt Rate - Afr Amer 125 mL/min (>60); Estimated Creatinine Clearance 84.09 ml/min; Glucose 86 mg/dL (74-106); Potassium 3.8 mmol/L (3.5-5.1); Sodium Level 146 mmol/L (136-145)
--- NOTE | 2018-04-13 10:40 | NURSING ---
patient taken to have egd
--- NOTE | 2018-04-13 11:30 | GASB_PTH ---
PATIENT: KAILA PIÑA LOC: [facility] U#:[id number] AGE/SX: 52/F ROOM: [facility] RE04/11/[address]: Dr. Abebe Webb MD : 1965 BED: 1 DIS: 04/13/2018 SPEC #: [id number] RECD: 04/13/18 11:40 STATUS: JORDAN REQ #: [id number] STANLEY: 04/13/18 11:[address]: Peggy Sanchez DEPT: SURGICAL PATHOLOGY RECD BY: Yobani Arevalo ENTERED: 04/13/18 12:34 SP TYPE: Gastric Bx OTHR DR: Dr. Ruddy Stone, DO Dr. Patel Nolasco, MD Dr. Peggy Us Dr., MD Tissues: A - Gastric mucous membrane B - Gastric mucous membrane C - Gastric mucous membrane Procedures: Special Stain Group II Surgery Specimen Level IV Alcian Blue/PAS (control) Comments: @ Ordering doctor for SUIV edited from to @ by JOHNATHAN at 04/13/18 1632 @ Submitting doctor edited from to @ by RGOOD at 04/13/18 1632 HEADER OPERATION: [place] [place] DIAGNOSIS: Burning across chest, nausea, reflux, vomiting TISSUE SUBMITTED: A - Biopsy gastric antrum, H. pylori and path, B - Biopsy gastric body, C - Biopsy GE junction MICROSCOPIC DIAGNOSIS A. Gastric antrum, biopsy: Mild gastritis. B. Gastric body, biopsy: Mild gastritis. C. GE junction, biopsy: Fragments of gastric mucosa with focal intestinal metaplasia (goblet cell metaplasia) consistent with Love's esophagus. Chronic inflammation Negative for dysplasia. See comment. SJ:eden 04/14/18 COMMENT A & B. The results of immunohistochemistry for Helicobacter pylori will be reported separately ([id number]). C. Alcian blue/PAS stain with matched control is used in the evaluation of the specimen. MICROSCOPIC DESCRIPTION Slides are reviewed. A & B. The specimen shows fragments of gastric mucosa with chronic inflammatory cell infiltrates in the lamina propria consisting of lymphocytes and plasma cells, consistent with mild chronic gastritis. GROSS DESCRIPTION A - Received in fixative is one container labeled with the patient's name and designated biopsy gastric antrum. The specimen consists of one irregular fragment of light wong soft tissue that measures 0.3 x 0.3 x 0.1 cm. The specimen is totally submitted in one cassette. B - Received in fixative is one container labeled with the patient's name and designated biopsy gastric body. The specimen consists of two irregular fragments of light wong soft tissue that in aggregate measure 0.4 x 0.4 x 0.1 cm. The specimen is totally submitted in one cassette. C - Received in fixative is one container labeled with the patient's name and designated biopsy GE junction. The specimen consists of two irregular fragments of light wong soft tissue that in aggregate measure 0.6 x 0.4 x 0.1 cm. The specimen is totally submitted in one cassette. / SJ:rg 04/13/18 TC:3 [facility]: [id number] x3, [id number]
--- NOTE | 2018-04-13 11:30 | DCINST_ITS ---
- Discharge Diagnoses Current Active Problems: Current Active and Chronic Problems (Last Updated 04/11/18 @ 14:42 by Ruddy Stone DO) Chest pain (Acute) Gastroenteritis (Acute) You will use the following diet at home:: Regular Discharge Activity: May not drive while taking narcotic pain medications. Additional Instructions: No Motrin/Mobic or NSAIDs. Allergies/Adverse Reactions: Allergies No Known Allergies Allergy (Unverified 04/11/18 09:53) Medications to take at Discharge Biest 0.1 ml TOPICAL DAILY 04/12/18 Gabapentin [Neurontin] 300 mg PO QHS 04/12/18 Meloxicam [Mobic] 15 mg PO DAILY 04/12/18 Progesterone,Micronized [Prometrium] 200 mg PO DAILY 04/12/18 Terbinafine HCl 250 mg PO DAILY 04/12/18 Testosterone 0.25 mg TOPICAL DAILY 04/12/18 Thyroid,Pork [[place] Thyroid] 30 mg PO DAILY 04/12/18 Pantoprazole Sodium [Protonix] 40 mg PO DAILY #30 tablet 04/13/18 SimETHICONE [Mylicon] 80 mg PO TIDPC tablet 04/13/18 Sucralfate [Carafate] 1 gm PO 4X/DAY #120 tablet 04/13/18 The following prescriptions were given: Pantoprazole Sodium [Protonix] 40 mg PO DAILY #30 tablet Sucralfate [Carafate] 1 gm PO 4X/DAY #120 tablet Primary Care Physician: Patel Nolasco DO [Primary Care Provider] - Please follow up with your Primary Care Physician in: in 1-2 weeks Test Results: Test results from this visit will be discussed in further detail at your follow- up appointment, if applicable. Please Follow Up With: Peggy Sanchez MD When: in 2-3 weeks
--- NOTE | 2018-04-13 11:30 | IMM_PTH ---
PATIENT: KAILA PIÑA LOC: [facility] U#:[id number] AGE/SX: 52/F ROOM: [facility] RE04/11/[address]: Dr. Abebe Webb MD : 1965 BED: 1 DIS: 04/13/2018 SPEC #: [id number] RECD: 04/14/18 09:50 STATUS: SOUIsacc REQ #: [id number] STANLEY: 04/13/18 11:[address]: Peggy Sanchez DEPT: IMMUNOHISTOCHEMISTRY RECD BY: Ursula Argueta ENTERED: 04/14/18 09:51 SP TYPE: IMMUNO OTHR DR: Dr. Ruddy Stone, DO Dr. Patel Nolasco, DO Dr. Abebe Webb MD Tissues: A - Stomach, NOS B - Stomach, NOS Procedures: H Pylori (initial) Comments: @ Ordering doctor for H.PYLORI edited from to @ by JOHNATHAN at 04/14/18 09 @ Submitting doctor edited from to @ by JOHNATHAN at 04/14/18 0951 [facility] INSTIT[facility] [place] [phone] SPECIMEN INFORMATION: Tissue Source: A - Gastric antrum biopsy, B - Gastric body biopsy Clinical Info: Burning across chest, nausea, reflux, vomiting Specimen Number: [id number] A & B CPT code: 32730 x2 METHODOLOGY: Deparaffinized sections of prefer/formalin-fixed tissue or PAP/DQ stained slides are incubated with monoclonal/polyclonal antibodies/oligonucleotide probes. Localization is made via biotin free immunoperoxidase method. Appropriate controls are performed and reacted as expected. Results on target cell population are indicated in the following table: RESULTS: ANTIBODY / CLONE RESULT Block A H Pylori (polyclonal) negative Block B H Pylori (polyclonal) negative These tests were developed and their performance characteristics determined by [facility]. They may not have been cleared or approved by the U.S. Food and Drug Administration. The FDA has determined that such clearance or approval is not necessary. INTERPRETATION: A. Gastric antrum, biopsy: Negative for Helicobacter pylori organisms. B. Gastric body, biopsy: Negative for Helicobacter pylori organisms. MARYLU:eden 04/14/18
--- NOTE | 2018-04-13 11:31 | DS.PCM_ITS ---
Discharge Date and Diagnosis Date of Admission: 04/11/18 Date of Discharge: 04/13/18 - Primary Discharge Diagnosis Active and Suspected Problems (Last Updated 04/11/18 @ 14:42 by Ruddy Stone DO) Atypical chest pain and epigastric pain from gastritis and hiatus hernia. Acute coronary syndrome ruled out - Secondary Discharge Diagnosis Chronic Problems (Last Updated 04/11/18 @ 14:42 by Ruddy Stone DO) Tobacco use disorder (Chronic) Hospital Course and Treatment Summary of Care Provided: [] The patient is a 52 year old F presents with a 5-day history of burning type, bilateral chest pain, abdominal pain, nausea, vomiting, diarrhea and abdominal bloating. In ED, EKG that showed some ST depressions in the lateral leads. The patient was further admitted in PCU. 1. Atypical bilateral chest pain, epigastric abdominal pain probably related to GI/gastritis/PUD: Patient is admitted to PCU. Patient never had EGD. LFTs were normal. Right upper quadrant does not show calculus or biliary dilatation. On IV Protonix 40 mg q 12 hourly. Stool studies including C. difficile and enteric bacteriology panel ordered. Normal right upper quadrant and KUB x-ray. The patient had EGD by surgeon Dr. Sanchez. Her consult appreciated. EGD report reviewed showed erythematous and nodular mucosae near the GE junction which was biopsied. 3 cm hiatal hernia. Normal first portion of D1 and D2. Z line irregular. Rapid H. pylori test was negative but permanent biopsy report pending and follow with Dr. Sanchez. Protonix 40 mg daily for 2 months. Sucralfate 1 g p.o. 4 times daily for 1 month. Prescription sent to the pharmacy. Medications were discussed with the patient. Patient was advised not to take NSAIDs including ibuprofen, Mobic. 2. Abnormal EKG changes with ST depression lateral leads: Patient had nuclear stress test did not show ischemia and was negative. Serial troponin enzymes negative. ACS ruled out. 3. Mild hypokalemia: Potassium being replaced. DVT prophylaxis: On Lovenox 40 mils subcu daily. Discharge medication reconciliation done. Follow-up instructions completed. Discharge process discussed with the patient. Follow-up PCP and Dr. Sanchez. - Physical Exam Vital Signs Temp Pulse Resp BP Pulse Ox 97.2 F L 69 16 107/62 95 04/13/18 11:22 04/13/18 11:25 04/13/18 11:25 04/13/18 11:25 04/13/18 11:25 Oxygen Delivery Method Room Air Weight: 151 lb 10.848 oz Body Mass Index (BMI) 26.9 Intake and Output for Last 24 Hours 04/11/18 04/12/18 04/13/18 23:59 23:59 23:59 Intake Total 490 / 490 5568 / 5568 817 / 817 Balance 490 / 490 5568 / 5548 817 / 817 Microbiology Past 72 Hours 04/12/18 13:10 Enteric Bacteriology - Final Stool 04/12/18 13:10 C. difficile DNA Amplification - Final Stool 04/12/18 13:10 Stool Occult Blood (BENJAMÍN) - Final Stool 04/12/18 13:10 Stool Lactoferrin - Final Stool Laboratory Tests Past 24 Hrs 04/13/18 05:40 Sodium 146 H Potassium 3.8 Chloride 114 H Carbon Dioxide 22.0 Anion Gap 10 BUN 6 L Creatinine 0.64 Estim Creat Clear Calc 84.09 Est GFR (MDRD) Af Amer 125 Est GFR (MDRD) Non-Af 103 BUN/Creatinine Ratio 9.4 L Glucose 86 Calcium 7.6 L Discharge Activity: May not drive while taking narcotic pain medications. Home Medications: Medications to take at Discharge Biest 0.1 ml TOPICAL DAILY 04/12/18 Gabapentin [Neurontin] 300 mg PO QHS 04/12/18 Meloxicam [Mobic] 15 mg PO DAILY 04/12/18 Progesterone,Micronized [Prometrium] 200 mg PO DAILY 04/12/18 Terbinafine HCl 250 mg PO DAILY 04/12/18 Testosterone 0.25 mg TOPICAL DAILY 04/12/18 Thyroid,Pork [[place] Thyroid] 30 mg PO DAILY 04/12/18 Pantoprazole Sodium [Protonix] 40 mg PO DAILY #30 tablet 04/13/18 SimETHICONE [Mylicon] 80 mg PO TIDPC tablet 04/13/18 Sucralfate [Carafate] 1 gm PO 4X/DAY #120 tablet 04/13/18 Following Prescrptions Were Given to Patient: Pantoprazole Sodium [Protonix] 40 mg PO DAILY #30 tablet Sucralfate [Carafate] 1 gm PO 4X/DAY #120 tablet Primary Care Physician: Patel Nolasco DO [Primary Care Provider] - Please follow up with your Primary Care Physician in: in 1-2 weeks Please Follow Up With: Peggy Sanchez MD When: in 2-3 weeks Medical Necessity - Tobacco Use Smoking Status: Former smoker Tobacco Use: Non-smoker Meaningful Use Info Meaningful Use Diagnoses (Choose all that apply): None applicable Code Visit OBSV E&M: 90936 Observation care discharge
--- NOTE | 2018-04-13 11:32 | OP.ENDO_ITS ---
Patient Name: Tiarra Kitchen Procedure Date: 04/13/2018 10:24 AM Date of : 1965 Age: 52 Procedure: Upper GI endoscopy Indications: Epigastric abdominal pain, Heartburn Providers: Peggy Sanchez MD Medicines: Monitored Anesthesia Care Patient Profile: This is a 52 year old female. Patient has symptoms of acute epigastric abdominal pain, acute dyspepsia, acute heartburn, acute nausea and acute vomiting. Complications: No immediate complications. Procedure: Pre-Anesthesia Assessment: - Prior to the procedure, a History and Physical was performed, and patient medications and allergies were reviewed. The patient's tolerance of previous anesthesia was also reviewed. The risks and benefits of the procedure and the sedation options and risks were discussed with the patient. All questions were answered, and informed consent was obtained. Prior Anticoagulants: The patient has taken no previous anticoagulant or antiplatelet agents. ASA Grade Assessment: II - A patient with mild systemic disease. After reviewing the risks and benefits, the patient was deemed in satisfactory condition to undergo the procedure. After obtaining informed consent, the endoscope was passed under direct vision. Throughout the procedure, the patient's blood pressure, pulse, and oxygen saturations were monitored continuously. The gastroscope was introduced through the mouth, and advanced to the second part of duodenum. The upper GI endoscopy was accomplished without difficulty. The patient tolerated the procedure well. Scope In: 11:07:12 AM Scope Out: 11:15:29 AM Total Procedure Duration Time 0 hours 8 minutes 17 seconds Findings: Diffuse moderate inflammation characterized by erythema and nodular appearance of gastric body was found in the entire examined stomach. Biopsies were taken with a cold forceps for histology at gastric body and antrum, Helicobacter pylori testing and Helicobacter pylori testing using a rapid urease test. Moderate mucosal changes characterized by erythema were found at the gastroesophageal junction. Biopsies were taken with a cold forceps for histology. A 3 cm sliding hiatal hernia was present. The first portion of the duodenum and second portion of the duodenum were normal. The Z-line was irregular and was found 37 cm from the incisors. Impression: - Gastritis. Biopsied. - Erythematous and nodular mucosa in the gastroesophageal junction. Biopsied. - 3 cm hiatal hernia. - Normal first portion of the duodenum and second portion of the duodenum. - Z-line irregular, 37 cm from the incisors. Recommendation: - Await pathology results. - Return patient to [facility] for ongoing care. - Use sucralfate tablets 1 gram PO QID for 1 month. - Use Protonix (pantoprazole) 40 mg PO daily for 2 months. - Continue present medications. - No aspirin, ibuprofen, naproxen, or other non-steroidal anti-inflammatory drugs. Procedure Code(s): --- Professional --- 49889, Esophagogastroduodenoscopy, flexible, transoral; with biopsy, single or multiple Diagnosis Code(s): --- Professional --- K29.70, Gastritis, unspecified, without bleeding K31.89, Other diseases of stomach and duodenum K44.9, Diaphragmatic hernia without obstruction or gangrene K22.8, Other specified diseases of esophagus R10.13, Epigastric pain R12, Heartburn CPT copyright 2017 [employer]. All rights reserved. The codes documented in this report are preliminary and upon medical biller coder review may be revised to meet current compliance requirements. MD Peggy Sage MD 04/13/2018 11:32:27 AM This report has been signed electronically. Number of Addenda: 0 Note Initiated On: 04/13/2018 10:24 AM
--- NOTE | 2018-04-13 13:12 | NURSING ---
Dr. Sanchez called rapid hpylori negative patient aware per md request
[2018-04-13] MEDS: Sucralfate 1 GM Tablet PO (13:32)
== END 2018-04-13 11:30 | disposition home or self-care (01) ==
LOC: ED 11:14 → PCU 15:23
PROVIDERS: Surgery; Emergency Provider Emergency Medicine; Family Provider Student in an Organized Health Care Education/Training Program; PCP Student in an Organized Health Care Education/Training Program; Visit Provider Internal Medicine
PROC: 0DJ08ZZ Inspection of Upper Intestinal Tract, Via Natural or Artificial Opening Endoscopic (ICD-10-PCS; CPT 43235; principal; 2018-04-13 11:25)
DX: K29.50 Unspecified chronic gastritis without bleeding (principal); K44.9 Diaphragmatic hernia without obstruction or gangrene; R07.89 Other chest pain; Z85.41 Personal history of malignant neoplasm of cervix uteri; Z87.891 Personal history of nicotine dependence; E87.6 Hypokalemia; R94.31 Abnormal electrocardiogram [ECG] [EKG]; Z79.899 Other long term (current) drug therapy
CPT/HCPCS: 43239; 36415; 71045; 74018; 76705; 80048; 80061; 80076; 82274; 83630; 83690; 84484; 85025; 85027; 85610; 85730; 87493; 87506; 88305; 88313; 88342; 93005; 93017; 93350; 96361; 96365; 96366; 96372; 96375; 96376; 99218; 99285; J7030; J7040; A4216; G0378; J2405

== ENCOUNTER → 2018-05-04 08:34 | Outpatient (CLI) | payer OTHER, SELFPAY ==
[2018-04-20 15:25] VITALS: BMI 26.5
--- NOTE | 2018-05-04 09:00 | RAD_ITS ---
STUDY: AIR-CONTRAST UPPER GI SERIES. REASON FOR EXAM: Female, 52 years old. Abdominal pain and burning sensation. FLUOROSCOPY TIME (if supplied): (0:34) minutes/seconds. 27 images were obtained. TECHNIQUE: The patient ingested barium. Multiple images of the esophagus, stomach and duodenum were obtained. COMPARISON: None. FINDINGS: The esophagus is unremarkable. There is no evidence of esophageal obstruction. No mass lesion is seen. There is no evidence of gastroesophageal reflux. The stomach and duodenum are unremarkable. There is no evidence of ulceration. No mass lesion is seen. RAD/Upper GI/w Small Bowel IMPRESSION: Unremarkable air contrast upper GI series. Electronically Signed: Alfonso Caputo MD at 14:53 EST Tel [phone], Service support ,
--- OUTSIDE RECORDS SUMMARY | 2018-06-20 06:55 | XMS RPT_ITS ---
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 QHS 04/12/18 [History Confirmed 04/27/18] Meloxicam [Mobic] 15 mg PO DAILY 04/12/18 [History Confirmed 04/27/18] Progesterone,Micronized [Prometrium] 200 mg PO DAILY 04/12/18 [History Confirmed 04/27/18] Terbinafine HCl 250 mg PO DAILY 04/12/18 [History Confirmed 04/27/18] Testosterone 0.25 mg TOPICAL DAILY 04/12/18 [History Confirmed 04/27/18] Thyroid,Pork [[place] Thyroid] 30 mg PO DAILY 04/12/18 [History Confirmed 04/27/18] Pantoprazole Sodium [Protonix] 40 mg PO DAILY #30 tab 04/13/18 [Rx Confirmed 04/27/18] SimETHICONE [Mylicon] 80 mg PO TIDPC tab 04/13/18 [Rx Confirmed 04/27/18] Sucralfate [Carafate] 1 gm PO 4X/DAY #120 tab 04/13/18 [Rx Confirmed 04/27/18] Subjective Details: Patient states she is still having the nausea and burping which occur daily as soon as she eats. Patient is on the Protonix 40 mg daily she was unable to take the Carafate due to some nausea and dizziness. Patient has been able to eat soft foods and also drink water during this time. She also has tried Mylanta before eating which did not really help she is currently still taking the same Ethicon. She denies any abdominal pain. States she has had watery diarrhea for about 3 weeks. Patient underwent an EGD during hospitalization which does show some mild gastritis and H. pylori was negative per Objective Details: Abdomen: Soft, nondistended, nontender, no peritoneal signs Assessment AND Plan Problems 1. Nausea R11.0 2. Burping R14.2 Plan We will plan to get an upper GI including the esophagus and the stomach to see if there is any motility issues. She may need also manometry. Patient is agreeable to plan. Peggy Sanchez M.D. Pager: [phone] [facility] [address] [place] [address], [facility], [address] [place] [address] Office: [phone] Orders Orders: Plan Detail Follow Up We will check an upper GI including esophagus and stomach Coding Level of Care Code Off vis,est,level 3 Diagnoses Nausea R11.0 Burping R14.2 05/03/18 0755 <Electronically signed by Peggy Sanchez MD> Date Peggy Sanchez MD Cosigner Signature: Date (if applicable) CC: Patel Barker DO 12 LEAD ELECTROCARDIOGRAM Observed: 04/23/2018 Status: F Source: [place] 9:18 AM [facility] REPOS[facility] Cardiovascular Services [address] [place] [address] 12 Lead EKG 04/12/18 0529 MR#: [id number] Acct: [id number] Name: KAILA PIÑA Rep #: [id number] : 1965 52 From: Eduardo Perkins MD [facility] Status: DIS MICHAEL Ordering Dr: Ruddy Stone DO Date: 04/12/18 Location: [facility] Sex: F C Admitted: 04/11/18 Test Reason : AM EKG Blood Pressure : / mmHG Vent. Rate : 069 BPM Atrial Rate : 069 BPM P-R Int : 158 ms QRS Dur : 082 ms QT Int : 434 ms P-R-T Axes : 058 018 -18 degrees QTc Int : 465 ms Normal sinus rhythm ST AND T wave abnormality, consider anterior ischemia Prolonged QT Abnormal ECG When compared with ECG of 11-APR-2018 15:58, MANUAL COMPARISON REQUIRED, DATA IS UNCONFIRMED Confirmed by GREGORIO AKERS, EDUARDO ([id number]), editor newspaper BEREKET VICK ([id number]) on 04/16/2018 1:56:29 PM Referred By: MIK Confirmed By:EDUARDO PERKINS MD 04/16/18 1356 Date Eduardo Perkins MD CC: Ruddy Stone DO; Patel Barker DO; Abebe Webb MD Signed 12 LEAD ELECTROCARDIOGRAM Observed: 04/23/2018 Status: F Source: [place] 9:18 AM [facility] REPOSITORY [facility] Cardiovascular Services [address] [place] [address] 12 Lead EKG 04/11/18 1558 MR#: [id number] Acct: [id number] Name: KAILA PIÑA Rep #: [id number] : 1965 52 From: Eduardo Perkins MD Attending Dr: Abebe Webb MD Status: DIS MICHAEL Ordering Dr: Ruddy Stone DO Date: 04/11/18 Location: [facility] Sex: F C Admitted: 04/11/18 Test Reason : CP ADMISSION Blood Pressure : / mmHG Vent. Rate : 068 BPM Atrial Rate : 068 BPM P-R Int : 142 ms QRS Dur : 082 ms QT Int : 434 ms P-R-T Axes : 031 002 -11 degrees QTc Int : 461 ms Normal sinus rhythm ST AND T wave abnormality, consider anterior ischemia Prolonged QT Abnormal ECG When compared with ECG of 19-MAR-2011 21:57, T wave inversion now evident in Anterior leads Confirmed by EDUARDO PERKINS MD ([id number]), editor newspaper BEREKET VICK ([id number]) on 04/16/2018 1:57:24 PM Referred By: MIK Confirmed By:EDUARDO PERKINS MD 04/16/18 1357 Date Eduardo Perkins MD CC: Ruddy Stone DO; Patel Barker DO; Abebe Webb MD Signed 12 LEAD ELECTROCARDIOGRAM Observed: 04/23/2018 Status: F Source: [place] 9:15 AM [facility] REPOS[facility]ORY [facility] Cardi[facility] Services [address] [place] [address] 12 Lead EKG 04/11/18 1221 MR#: [id number] Acct: [id number] Name: KAILA PIÑA Rep #: [id number] : 1965 52 From: Eduardo Perkins MD Attending Dr: Abebe Webb MD Status: DIS MICHAEL Ordering Dr: Jakob Patterson MD Date: 04/11/18 Location: U Sex: F C Admitted: 04/11/18 Test Reason : REPEAT Blood Pressure : / mmHG Vent. Rate : 064 BPM Atrial Rate : 064 BPM P-R Int : 142 ms QRS Dur : 092 ms QT Int : 444 ms P-R-T Axes : 052 018 007 degrees QTc Int : 458 ms Normal sinus rhythm Incomplete right bundle branch block ST AND T wave abnormality, consider anterior ischemia Abnormal ECG Confirmed by EDUARDO PERKINS MD ([id number]), editor newspaper BEREKET VICK ([id number]) on 04/14/2018 1:00:19 PM Referred By: SAUL Confirmed By:EDUARDO PERKINS MD 04/14/18 1300 Date Eduardo Perkins MD CC: Jakob Patterson MD; Patel Barker DO; Abebe Webb MD Signed 12 LEAD ELECTROCARDIOGRAM Observed: 04/23/2018 Status: F Source: [place] 9:15 AM [facility] REPOS[facility] Services [address] [place] [address] 12 Lead EKG 04/11/18 1008 MR#: [id number] Acct: [id number] Name: KAILA PIÑA Rep #: [id number] : 1965 52 From: Eduardo Perkins MD Attending Dr: Abebe Webb MD Status: DIS MICHAEL Ordering Dr: Jakob Patterson MD Date: 04/11/18 Location: [facility] Sex: F C Admitted: 04/11/18 Test Reason : CHEST DISCOMFORT Blood Pressure : / mmHG Vent. Rate : 092 BPM Atrial Rate : 092 BPM P-R Int : 124 ms QRS Dur : 090 ms QT Int : 378 ms P-R-T Axes : 046 012 008 degrees QTc Int : 467 ms Normal sinus rhythm ST AND T wave abnormality, consider anterior ischemia Prolonged QT Abnormal ECG Confirmed by EDUARDO PERKINS MD ([id number]), editor newspaper BEREKET VICK (56) on 04/14/2018 1:00:37 PM Referred By: SAUL Confirmed By:EDUARDO PERKINS MD 04/14/18 1300 Date Eduardo Perkins MD CC: Jakob Patterson MD; Patel Barker DO; Abebe Webb MD Signed DISCHARGE SUMMARY Observed: 04/13/2018 Status: F Source: [place] 4:41 PM [facility] REPOS[facility]ORY [facility] Medical Records Department [address] [place] [address] Discharge Summary 04/13/18 1130 MR#: [id number] Acct: [id number] Name: KAILA PIÑA Rep #: [id number] : 1965 52 From: Abebe Webb MD PCP: Patel Barker DO Status: DIS MICHAEL Y Location: [place] [address] ADDENDUM by Abebe Webb MD on 04/13/18 at 1641 Code Visit Patient was seen and examined today Discussed with the patient and her near the bedside. Complained of mild soreness of throat after EGD otherwise no significant abdominal pain or chest pain. No shortness of breath General: Alert, Oriented x3, Cooperative HEENT: Atraumatic, PERRLA, EOMI, Normocephalic Neck: Supple, No JVD, Negative Carotid Bruits Lungs: Clear to auscultation, Normal air movement, No rhonchi, No wheeze, No rales Cardiovascular: Regular rate, Regular Rhythm, Normal S1, Normal S2, No murmurs Abdomen: Bowel Sounds Present, Soft, Non-Distended, no tenderness. No guarding/rigidity. Extremities: No edema, Capillary Refill Less than 3 Seconds Skin: No rashes, No breakdown Musculoskeletal: No Tenderness to Palpation of Joints or Extremities Neurological: Cranial nerves II-XII grossly intact Psych/Mental Status: Normal Affect, Appropriate 04/13/18 1641 <Electronically signed by Abebe Webb MD> Date Abebe Webb MD cc: Patel Barker DO; Abebe Webb MD * Signed Discharge Date and Diagnosis Date of Admission: 04/11/18 Date of Discharge: 04/13/18 - Primary Discharge Diagnosis Active and Suspected Problems (Last Updated 04/11/18 @ 14:42 by Ruddy Stone DO) Atypical chest pain and epigastric pain from gastritis and hiatus hernia. Acute coronary syndrome ruled out - Secondary Discharge Diagnosis Chronic Problems (Last Updated 04/11/18 @ 14:42 by Ruddy Stone DO) Tobacco use disorder (Chronic) Hospital Course and Treatment Summary of Care Provided: [] The patient is a 52 year old F presents with a 5-day history of burning type, bilateral chest pain, abdominal pain, nausea, vomiting, diarrhea and abdominal bloating. In ED, EKG that showed some ST depressions in the lateral leads. The patient was further admitted in PCU. 1. Atypical bilateral chest pain, epigastric abdominal pain probably related to GI/gastritis/PUD: Patient is admitted to PCU. Patient never had EGD. LFTs were normal. Right upper quadrant does not show calculus or biliary dilatation. On IV Protonix 40 mg q 12 hourly. Stool studies including C. difficile and enteric bacteriology panel ordered. Normal right upper quadrant and KUB x-ray. The patient had EGD by surgeon Dr. Sanchez. Her consult appreciated. EGD report reviewed showed erythematous and nodular mucosae near the GE junction which was biopsied. 3 cm hiatal hernia. Normal first portion of D1 and D2. Z line irregular. Rapid H. pylori test was negative but permanent biopsy report pending and follow with Dr. Sanchez. Protonix 40 mg daily for 2 months. Sucralfate 1 g p.o. 4 times daily for 1 month. Prescription sent to the pharmacy. Medications were discussed with the patient. Patient was advised not to take NSAIDs including ibuprofen, Mobic. 2. Abnormal EKG changes with ST depression lateral leads: Patient had nuclear stress test did not show ischemia and was negative. Serial troponin enzymes negative. ACS ruled out. 3. Mild hypokalemia: Potassium being replaced. DVT prophylaxis: On Lovenox 40 mils subcu daily. Discharge medication reconciliation done. Follow-up instructions completed. Discharge process discussed with the patient. Follow-up PCP and Dr. Sanchez. - Physical Exam Vital Signs Temp Pulse Resp BP Pulse Ox 97.2 F L 69 16 107/62 95 04/13/18 11:22 04/13/18 11:25 04/13/18 11:25 04/13/18 11:25 04/13/18 11:25 Oxygen Delivery Method Room Air Weight: 151 lb 10.848 oz Body Mass Index (BMI) 26.9 Intake and Output for Last 24 Hours Intake Total 490 / 490 5568 / 5568 817 / 817 Balance 490 / 490 5568 / 5568 817 / 817 Microbiology Past 72 Hours 04/12/18 13:10 Enteric Bacteriology - Final Laboratory Tests Past 24 Hrs Sodium 146 H Potassium 3.8 Chloride 114 H Carbon Dioxide 22.0 Discharge Activity: May not drive while taking narcotic pain medications. Home Medications: Medications to take at Discharge Biest 0.1 ml TOPICAL DAILY 04/12/18 Gabapentin [Neurontin] 300 mg PO QHS 04/12/18 Meloxicam [Mobic] 15 mg PO DAILY 04/12/18 Progesterone,Micronized [Prometrium] 200 mg PO DAILY 04/12/18 Terbinafine HCl 250 mg PO DAILY 04/12/18 Testosterone 0.25 mg TOPICAL DAILY 04/12/18 Thyroid,Pork [[place] Thyroid] 30 mg PO DAILY 04/12/18 Pantoprazole Sodium [Protonix] 40 mg PO DAILY #30 tablet 04/13/18 SimETHICONE [Mylicon] 80 mg PO TIDPC tablet 04/13/18 Sucralfate [Carafate] 1 gm PO 4X/DAY #120 tablet 04/13/18 Following Prescrptions Were Given to Patient: Pantoprazole Sodium [Protonix] 40 mg PO DAILY #30 tablet Sucralfate [Carafate] 1 gm PO 4X/DAY #120 tablet Primary Care Physician: Patel Orozco DO [Primary Care Provider] - Please follow up with your Primary Care Physician in: in 1- 2 weeks Please Follow Up With: Peggy Sanchez MD When: in 2-3 weeks Medical Necessity - Tobacco Use Smoking Status: Former smoker Tobacco Use: Non-smoker Meaningful Use Info Meaningful Use Diagnoses (Choose all that apply): None applicable Code Visit OBSV E AND M: 28952 Observation care discharge 04/13/18 1639 <Electronically signed by Abebe Webb MD> Date Abebe Webb MD Cosigner Signature (if applicable): Date CC: Patel Barker DO; Abebe Webb MD Signed DISCHARGE INSTRUCTION Observed: 04/13/2018 Status: F Source: [place] 1:38 PM [facility] RE[facility] Medical Records Department [address] [place] [address] Instructions for Home/Discharge Instructions 04/13/18 1129 MR#: [id number] Acct: [id number] Name: KAILA PIÑA Rep #: [id number] : 1965 52 From: Abebe Webb MD PCP: Patel Barker DO Status: ADM MICHAEL - Discharge Diagnoses Current Active Problems: Current Active and Chronic Problems (Last Updated 04/11/18 @ 14:42 by Ruddy Stone DO) Chest pain (Acute) Gastroenteritis (Acute) You will use the following diet at home:: Regular Discharge Activity: May not drive while taking narcotic pain medications. Additional Instructions: No Motrin/Mobic or NSAIDs. Allergies/Adverse Reactions: Allergies No Known Allergies Allergy (Unverified 04/11/18 09:53) Medications to take at Discharge Biest 0.1 ml TOPICAL DAILY 04/12/18 Gabapentin [Neurontin] 300 mg PO QHS 04/12/18 Meloxicam [Mobic] 15 mg PO DAILY 04/12/18 Progesterone,Micronized [Prometrium] 200 mg PO DAILY 04/12/18 Terbinafine HCl 250 mg PO DAILY 04/12/18 Testosterone 0.25 mg TOPICAL DAILY 04/12/18 Thyroid,Pork [[place] Thyroid] 30 mg PO DAILY 04/12/18 Pantoprazole Sodium [Protonix] 40 mg PO DAILY #30 tablet 04/13/18 SimETHICONE [Mylicon] 80 mg PO TIDPC tablet 04/13/18 Sucralfate [Carafate] 1 gm PO 4X/DAY #120 tablet 04/13/18 The following prescriptions were given: Pantoprazole Sodium [Protonix] 40 mg PO DAILY #30 tablet Sucralfate [Carafate] 1 gm PO 4X/DAY #120 tablet Primary Care Physician: Patel Orozco DO [Primary Care Provider] - Please follow up with your Primary Care Physician in: in 1- 2 weeks Test Results: Test results from this visit will be discussed in further detail at your follow-up appointment, if applicable. Please Follow Up With: Peggy Sanchez MD When: in 2-3 weeks 04/13/18 1338 <Electronically signed by Abebe Webb MD> Date Abebe Webb MD CC: Patel Barker DO; Peggy Sanchez MD OPERATIVE REPORT - Observed: 04/13/2018 Status: F Source: [place] ENDOSCOPY 11:32 AM [facility] REPOS[facility] Medical Records Department [address] [place] [address] Operative Report - Endoscopy MR#: [id number] Acct: [id number] Name: KAILA PIÑA Rep #: [id number] : 1965 52 From: Peggy Sanchez MD PCP: Patel Barker DO Status: ADM MICHAEL Patient Name: Kaila Piña Procedure Date: 04/13/2018 10:24 AM Date of : 1965 Age: 52 Procedure: Upper GI endoscopy Indications: Epigastric abdominal pain, Heartburn Providers: Peggy Sanchez MD Medicines: Monitored Anesthesia Care Patient Profile: This is a 52 year old female. Patient has symptoms of acute epigastric abdominal pain, acute dyspepsia, acute heartburn, acute nausea and acute vomiting. Complications: No immediate complications. Procedure: Pre-Anesthesia Assessment: - Prior to the procedure, a History and Physical was performed, and patient medications and allergies were reviewed. The patient's tolerance of previous anesthesia was also reviewed. The risks and benefits of the procedure and the sedation options and risks were discussed with the patient. All questions were answered, and informed consent was obtained. Prior Anticoagulants: The patient has taken no previous anticoagulant or antiplatelet agents. ASA Grade Assessment: II - A patient with mild systemic disease. After reviewing the risks and benefits, the patient was deemed in satisfactory condition to undergo the procedure. After obtaining informed consent, the endoscope was passed under direct vision. Throughout the procedure, the patient's blood pressure, pulse, and oxygen saturations were monitored continuously. The gastroscope was introduced through the mouth, and advanced to the second part of duodenum. The upper GI endoscopy was accomplished without difficulty. The patient tolerated the procedure well. Scope In: 11:07:12 AM Scope Out: 11:15:29 AM Total Procedure Duration Time 0 hours 8 minutes 17 seconds Findings: Diffuse moderate inflammation characterized by erythema and nodular appearance of gastric body was found in the entire examined stomach. Biopsies were taken with a cold forceps for histology at gastric body and antrum, Helicobacter pylori testing and Helicobacter pylori testing using a rapid urease test. Moderate mucosal changes characterized by erythema were found at the gastroesophageal junction. Biopsies were taken with a cold forceps for histology. A 3 cm sliding hiatal hernia was present. The first portion of the duodenum and second portion of the duodenum were normal. The Z-line was irregular and was found 37 cm from the incisors. Impression: - Gastritis. Biopsied. - Erythematous and nodular mucosa in the gastroesophageal junction. Biopsied. - 3 cm hiatal hernia. - Normal first portion of the duodenum and second portion of the duodenum. - Z-line irregular, 37 cm from the incisors. Recommendation: - Await pathology results. - Return patient to [facility] for ongoing care. - Use sucralfate tablets 1 gram PO QID for 1 month. - Use Protonix (pantoprazole) 40 mg PO daily for 2 months. - Continue present medications. - No aspirin, ibuprofen, naproxen, or other non-steroidal anti-inflammatory drugs. Procedure Code(s): --- Professional --- 50812, Esophagogastroduodenoscopy, flexible, transoral; with biopsy, single or multiple Diagnosis Code(s): --- Professional --- K29.70, Gastritis, unspecified, without bleeding K31.89, Other diseases of stomach and duodenum K44.9, Diaphragmatic hernia without obstruction or gangrene K22.8, Other specified diseases of esophagus R10.13, Epigastric pain R12, Heartburn CPT copyright 2017 [employer]. All rights reserved. The codes documented in this report are preliminary and upon death surveys coder review may be revised to meet current compliance requirements. MD Peggy Sage MD 04/13/2018 11:32:27 AM This report has been signed electronically. Number of Addenda: 0 Note Initiated On: 04/13/2018 10:24 AM 04/13/18 1132 Date Peggy Sanchez MD Cosigner Signature: Date (if indicated) CC: Patel Barker DO; Abebe Webb MD; Peggy Sanchez MD Date Dictated: 04/13/18 1024 Date Transcribed: Filling Room Operator: TR Signed GASTRIC BIOPSY Observed: 04/13/2018 Status: F Source: [place] 11:30 AM [facility] REPOSITORY Patient: KAILA PIÑA : 1965 (52/F) Acct Num: [id number] Phys: Abebe Webb MD Unit Num: [id number] Loc: PCU [id number] Specimen: [id number] Received: 04/13/18 - 1140 Spec Type: Gastric Bx TISSUES 1 TISSUES: A. Gastric mucous membrane B. Gastric mucous membrane C. Gastric mucous membrane COMMENT A AND B. The results of immunohistochemistry for Helicobacter pylori will be reported separately ([id number]). C. Alcian blue/PAS stain with matched control is used in the evaluation of the specimen. GROSS DESCRIPTION A - Received in fixative is one container labeled with the patient's name and designated biopsy gastric antrum. The specimen consists of one irregular fragment of light wong soft tissue that measures 0.3 x 0.3 x 0.1 cm. The specimen is totally submitted in one cassette. B - Received in fixative is one container labeled with the patient's name and designated biopsy gastric body. The specimen consists of two irregular fragments of light wong soft tissue that in aggregate measure 0.4 x 0.4 x 0.1 cm. The specimen is totally submitted in one cassette. C - Received in fixative is one container labeled with the patient's name and designated biopsy GE junction. The specimen consists of two irregular fragments of light wong soft tissue that in aggregate measure 0.6 x 0.4 x 0.1 cm. The specimen is totally submitted in one cassette. / SJ:eden 04/13/18 TC:3 CPT: 79982 x3, 85924 HEADER OPERATION: EGD ([facility] PRE-OP DIAGNOSIS: Burning across chest, nausea, reflux, vomiting TISSUE SUBMITTED: A - Biopsy gastric antrum, H. pylori and path, B - Biopsy gastric body, C - Biopsy GE junction MICROSCOPIC DESCRIPTION Slides are reviewed. A AND B. The specimen shows fragments of gastric mucosa with chronic inflammatory cell infiltrates in the lamina propria consisting of lymphocytes and plasma cells, consistent with mild chronic gastritis. MICROSCOPIC DIAGNOSIS A. Gastric antrum, biopsy: Mild gastritis. B. Gastric body, biopsy: Mild gastritis. C. GE junction, biopsy: Fragments of gastric mucosa with focal intestinal metaplasia (goblet cell metaplasia) consistent with Love's esophagus. Chronic inflammation Negative for dysplasia. See comment. SJ:eden 04/14/18 Signed Edi Larson 04/14/18 <signature on file> Performed By: #### PGASB #### [facility] [address] [place], [address] IMMUNOHISTOCHEMISTRY Observed: 04/13/2018 Status: F Source: [place] 11:30 AM [facility] REPOS[facility]ORY Patient: KAILA PIÑA : 1965 (52/F) Acct Num: [id number] Phys: Jon AKERS,Abebe Unit Num: [id number] Loc: [facility] [id number] Specimen: [id number] Received: 04/14/18 - 0950 Spec Type: IMMUNO TISSUES 1 TISSUES: A. Stomach, NOS B. Stomach, NOS SPECIMEN INFORMATION: Tissue Source: A - Gastric antrum biopsy, B - Gastric body biopsy Clinical Info: Burning across chest, nausea, reflux, vomiting Specimen Number: [id number] A AND B CPT code: 09384 x2 METHODOLOGY: Deparaffinized sections of prefer/formalin-fixed tissue or PAP/DQ stained slides are incubated with monoclonal/polyclonal antibodies/oligonucleotide probes. Localization is made via biotin free immunoperoxidase method. Appropriate controls are performed and reacted as expected. Results on target cell population are indicated in the following table: RESULTS: ANTIBODY / CLONE RESULT Block A H Pylori (polyclonal) negative Block B H Pylori (polyclonal) negative These tests were developed and their performance characteristics determined by [facility]. They may not have been cleared or approved by the U.S. Food and Drug Administration. The FDA has determined that such clearance or approval is not necessary. INTERPRETATION: A. Gastric antrum, biopsy: Negative for Helicobacter pylori organisms. B. Gastric body, biopsy: Negative for Helicobacter pylori organisms. SJ:eden 04/14/18 PHYSICIAN AND INSTITUTION [place] [address] Signed Edi Larson 04/14/18 <signature on file> Performed By: #### PIM #### [facility] [address] [place] [address]. [place], [address] CONSULTATION Observed: 04/13/2018 Status: F Source: [place] 9:14 AM [facility] REPOS[facility] Medical Records Department [address] [place] [address] Consultation 04/12/18 1800 MR#: [id number] Acct: [id number] Name: KAILA PIÑA Rep #: [id number] : 1965 52 From: Peggy Sanchez MD PCP: Patel Barker DO Status: ADM MICHAEL Y Location: [place] [address] Reason for Consult Date of Consultation: 04/12/18 History of Present Illness: The patient is a 52 year old F admitted due to nausea and vomiting, burning chest pain bilaterally. Patient did have a workup with negative stress test after abnormal EKG, normal troponins, right upper quadrant ultrasound was also negative, normal LFTs. Patient complains of nausea and vomiting since last Thursday after eating a salad. Patient states in the past she would have acid reflux with burning in her epigastrium and up her esophagus that may last for a day or 2 she does seem to think it happens more often after eating solids. Currently also complains of burping, bloating, and diarrhea for the last several days. Pt has been on PPI IV and simethicone. Patient does take Mobic 15 mg daily and only takes ibuprofen when she has a headache may be a couple times a week. Past Medical History Past Medical History (Chronic Problems): Chronic Problems (Last Updated 04/11/18 @ 14:42 by Ruddy Stone DO) Tobacco use disorder (Chronic) Medical History: Medical History (Last Updated 04/11/18 @ 14:42 by Ruddy Stone DO) H/O: hysterectomy Z90.710 Anemia D64.9 Cervical cancer C53.9 H/O: hysterectomy Z98.890, Z90.710 Allergies No Known Allergies Allergy (Unverified 04/11/18 09:53) Home Medications: Ambulatory Orders Medication Instructions Recorded Biest 0.1 ml TOPICAL DAILY 04/12/18 Gabapentin [Neurontin] 300 mg PO QHS 04/12/18 Meloxicam [Mobic] 15 mg PO DAILY 04/12/18 Progesterone,Micronized 200 mg PO DAILY 04/12/18 Surgical History: Surgical History (Last Reviewed 04/11/18 @ 14:42 by Ruddy Stone DO) H/O knee surgery Z98.890 Surgical History: - - colonoscopy within the last year, right knee Psychiatric History: No pertinent psych hx Lives: With Family Smoking Status: Former smoker Tobacco Use: Non-smoker Alcohol: None Drugs: None - *Family History Maternal Family History: Family History (Last Reviewed 04/11/18 @ 14:43 by Ruddy Stone DO) Other Diabetes Heart disease Review of Systems Constitutional: Denies: Chills, Fever HEENT: Denies: Difficulty Swallowing Cardiovascular: Reports: Chest Pain - burning occ Gastrointestinal: Reports: Abdominal Pain, Diarrhea, Dyspepsia Genitourinary: Denies: Dysuria Psychiatric: Denies: Depression Hematologic/ Lymphatic: Denies: Easy Bruising, Easy Bleeding Patient Problems: Active and Suspected Problems (Last Updated 04/11/18 @ 14:42 by Ruddy Stone DO) Chest pain (Acute) Gastroenteritis (Acute) - Physical Exam General: Alert, Oriented x3, Cooperative, No apparent distress HEENT: Atraumatic Lungs: Normal air movement Cardiovascular: Regular rate Abdomen: Soft, Non-Distended, Tender - Minimally bilateral lower quadrants, no peritoneal signs Extremities: No clubbing, No cyanosis, No edema Neurological: Cranial nerves II-XII grossly intact Psych/Mental Status: Normal Affect Vital Signs Temp Pulse Resp BP Pulse Ox 98.9 F 71 16 122/60 H 96 04/12/18 14:15 04/12/18 16:09 04/12/18 14:15 04/12/18 14:15 04/12/18 14:15 Oxygen Delivery Method Room Air Weight: 151 lb 10.848 oz Body Mass Index (BMI) 26.9 Intake and Output for Last 24 Hours Intake Total 490 / 490 4481 / 4481 Balance 490 / 490 4481 / 4481 Microbiology Past 72 Hours 04/12/18 13:10 Stool Occult Blood (BENJAMÍN) - Final Stool 04/12/18 13:10 Stool Lactoferrin - Final Stool Laboratory Tests Past 24 Hrs WBC RBC Hgb Hct MCV MCH MCHC RDW RDW Differential Plt Count MPV PT 15.7 H INR 1.3 APTT 32.9 Assessment/Plan All Active Problems (Last Updated 04/11/18 @ 14:42 by Ruddy Stone DO) Maxillary sinusitis, acute (Acute) Chest congestion (Acute) Acute bronchitis (Acute) Chest pain (Acute) Gastroenteritis (Acute) 52-year-old female with nausea vomiting, history of GERD, occasional burning across her chest with a negative cardiac workup, complained of bilateral lower abdominal pain/burning 1. Patient's history does sound like she has some acid reflux in the past. However unsure how this would relate to this lower abdominal pain which she said is newer. Patient states she has had a colonoscopy about 3 months ago however it was known by Dr. Garcia right before he moved which was more like December of last year however patient states it was normal. I have offered the patient EGD for evaluation. Scheduled for 11:30 AM tomorrow I have explained the risks/benefits of the procedure and described the procedure. I have discussed the risks with the patient, including but not limited to: infection, bleeding, perforation of the GI tract requiring emergency surgery, inability to complete the procedure, injury to any internal organs, complications of anesthesia, etc. - the patient understands and agrees to proceed. I have answered all the patient's questions to the patient's satisfaction and the patient has no further questions. Peggy Sanchez M.D. Pager: [phone] [facility] [address] [place] [address], Outpatient [place], [address] [place] [address] Office: [phone] Code Visit Inpatient E AND M: 22435 Init Hosp L1 04/13/18 0914 <Electronically signed by Peggy Sanchez MD> Date Peggy Sanchez MD Cosigner Signature (if applicable): Date CC: Patel Barker DO; Peggy Sanchez MD Signed BASIC METABOLIC Collected: 04/13/2018 Status: F Source: [facility] PROFILE ([facility]) 5:40 AM [facility] REPOSITORY TYPE CODE TESTS RESULT OUT OF RANGE REFERENCE UNITS LAB L501.0100 74-106 mg/dL Normal GLU 86 Result Comment: Please note revised GLUCOSE reference range effective 2017. LAB L501.1000 7-18 mg/dL Low BUN 6 LAB L501.1100 0.55-1.02 mg/dL Normal CREAT,SERUM 0.64 Result Comment: The validity of the calculated GFR AND GFRAA in patients over 70 years has not been determined. Clinical correlation is essential. LAB L501.1110 >60 mL/min Normal EST GFR 103 Result Comment: Non- GFR Calc LAB L501.1115 >60 mL/min Normal EST GFR - AA 125 Result Comment: GFR Calc LAB L501.1255 ml/min Normal Estimated CRCL 84.09 LAB L501.1300 10-20 RATIO Low BUN/CRE 9.4 LAB L501.2200 8.5-10 mg/dL Low .1 CA 7.6 LAB L501.5300 136-14 mmol/L High 5 NA 146 LAB L501.5600 3.5-5. mmol/L Normal 1 K 3.8 LAB L501.5900 98-107 mmol/L High CL 114 LAB L501.6100 21.0-3 mmol/L Normal 2.0 CO2 22.0 LAB L501.6200 5-15 Normal GAP 10 Performed By: #### L500.2500 #### [facility] [address] [place], [address] STRESS TEST ECHO W/O Observed: 04/12/2018 Status: F Source: [place] CONTRAST 3:04 PM [facility] REPOSITORY [facility] Cardiovascular Services [address] [place] [address] Stress Test Echo w/o Contrast MR#: [id number] Acct: [id number] Name: KAILA PIÑA Rep #: [id number] : 1965 52 From: Eduardo Perkins MD Primary Care: Patel Barker DO Status: ADM MICHAEL Ordering Dr: Ruddy Stone DO Sex: F C Reason For Study: Chest Pain Stress Results Protocol: Dobutamine Stress Echo Maximum Predicted HR: 167 bpm Target HR: 142 bpm % Maximum Predicted HR: 86 % DurationHeart Rate Stage (mm:ss) (bpm) BP Comment Baseline 70 141/72No Chest Pain DSE 10 MCG 3:00 67 120/59No Chest Pain DSE 20 MCG 3:00 97 135/69No Chest Pain DSE 30 MCG 3:00 123 182/63No Chest Pain DSE 40 MCG 2:36 144 165/67No Chest Pain Recovery 93 131/59No Chest Pain Stress Duration: 11:36 mm:ss Maximum Stress HR: 144 bpm METS: 1 Baseline Echocardiogram Findings Stress Echo Wall motion Data Resting WM Intermediate WM Stress WM Resting Wall Motion Wall Motion Stress No regional wall motion No regional wall motion abnormalities noted. abnormalities noted. Ejection Fraction 60 %. Ejection Fraction 75 %. Stress Results Normal blood pressure response to dobutamine. Drug infusion was stopped due to achievement of target heart rate. Interpretation Summary Dobutamine stress echocardiogram. Resting EKG demonstrates normal sinus rhythm with a rate of 66 bpm resting blood pressure 141/72 mmHg. Dobutamine was infused per usual protocol starting at 10 mcg/kg/min increasing in 3-minute aliquots to a peak of 40 mcg/kg/min. The maximum heart rate attained was 150 bpm which was 89% of maximum predicted heart rate the maximum workload was 1 metabolic equivalent. The patient maintained sinus rhythm throughout the recording. At rest there were no ST or T wave changes noted suggest ischemia at peak exercise nonspecific ST-T wave changes were noted with no meet the criteria for ischemia. The resting blood pressure is 120/59 with a peak blood pressure 182/63 mmHg. Resting echocardiogram. The resting echocardiogram demonstrated normal ejection fraction of 60% with no wall motion abnormalities noted. The stress echocardiogram demonstrated thickening of all francisco reduction of left ventricular cavity size and peaking of ejection fraction of 75%. No wall motion abnormalities were noted. Conclusion: Normal dobutamine stress echocardiogram with no evidence of ischemia. Ordering Physician: Ruddy Stone Referring Physician: Eduardo Perkins Performed By: Alpa Gray RDCS 04/12/18 1504 Date Eduardo Perkins MD CC: Ruddy Stone DO; Patel Barker DO; Abebe Webb MD Date Dictated: 04/12/18 1101 Date Transcribed: 04/12/18 1504 Filling Room Operator: Signed STOOL Observed: 04/12/2018 Status: F Source: [facility] LACTOFERRIN/WBC 1:10 PM [facility] REPOSITORY Has pt arrived? Y Stool Lacto/WBC Normal Reference Range = Negative Fecal WBC Lactoferrin Negative: No Fecal WBC Lactoferrin present Performed By: #### M100.0605 #### [facility] [address] [place], [place], [address] Observed: 04/12/2018 Status: F Source: [place] STOOL OCCULT BLOOD 1:10 PM [facility] IFOB REPOSITORY Has pt arrived? Y STOB iFOB Occult Blood Negative Performed By: #### M100.7900 #### [facility] [address] [place], [place], [address] Observed: 04/12/2018 Status: F Source: [place] CDIFF (MOLECULAR) 1:10 PM [facility] REPOSITORY Is the patient receiving laxatives? N New/unexplained onset of 3 or more stools in past 24 hrs? Y Cdiff-Molecular C. Diff DNA Negative- No toxigenic C. Diff DNA Detected NAAT METHOD Testing was performed using nucleic acid amplification Performed By: #### M100.6796 #### [facility] [address] [place], [place], [id number] Observed: 04/12/2018 Status: F Source: [place] ENTERIC PATHOGEN 1:10 PM [facility] PANEL STOOL REPOSITORY Has pt arrived? Y EP PANEL STOOL Normal Reference Range = Not Detected Not detected for Campylobacter group, Salmonella species, Shigella species, Vibrio Group, Yersinia enterocolitica, EHEC (Shiga Toxin 1, Shiga Toxin 2), Norovirus Gl/Gll, and Rotavirus A. Other common stool pathogens are not detected on this panel include: Aeromonas/Plesiomonas or parasites. Order testing for these organisms separately if suspected. This is an amplified DNA test which makes it both specific and sensitive. CAMPYLOBACTER Not Detected Salmonella Not Detected Shigella sp. Not Detected Shiga Toxin Not Detected Yersinia Not Detected VIBRIO Not Detected Norovirus Not Detected Rotavirus Not Detected Performed By: #### M100.637 #### [facility] [address] [place], [place], [address] BASIC METABOLIC Collected: 04/12/2018 Status: F Source: [facility] PROFILE (BMP) 4:59 AM [facility] REPOSITORY TYPE CODE TESTS RESULT OUT OF RANGE REFERENCE UNITS LAB L501.0100 74-106 mg/dL Normal GLU 89 Result Comment: Please note revised GLUCOSE reference range effective 2017. LAB L501.1000 7-18 mg/dL Normal BUN 13 LAB L501.1100 0.55-1.02 mg/dL Normal CREAT,SERUM 0.70 Result Comment: The validity of the calculated GFR AND GFRAA in patients over 70 years has not been determined. Clinical correlation is essential. LAB L501.1110 >60 mL/min Normal EST GFR 93 Result Comment: Non- GFR Calc LAB L501.1115 >60 mL/min Normal EST GFR - AA 112 Result Comment: GFR Calc LAB L501.1255 ml/min Normal Estimated CRCL 76.88 LAB L501.1300 10-20 RATIO Normal BUN/CRE 18.6 LAB L501.2200 8.5-10 mg/dL Low .1 CA 7.5 LAB L501.5300 136-14 mmol/L High 5 NA 146 LAB L501.5600 3.5-5. mmol/L Low 1 K 3.3 LAB L501.5900 98-107 mmol/L High CL 113 LAB L501.6100 21.0-3 mmol/L Normal 2.0 CO2 23.0 LAB L501.6200 5-15 Normal GAP 10 Performed By: #### L500.2500 #### [facility] [place], [address] LIPID PROFILE Collected: 04/12/2018 Status: F Source: [facility] 4:59 AM [facility] REPOSITORY TYPE CODE TESTS RESULT OUT OF RANGE REFERENCE UNITS LAB L501.4900 200 mg/dL Normal CHOL 146 Result Comment: <200 mg/dL Desirable 200-240 mg/dL Borderline >240 mg/dL High Risk LAB L501.5000 mg/dL Normal TRIG 164 Result Comment: The drugs N-Acetylcysteine and Metamizole may falsely depress this assay. Serum Triglycerides Reference Interval Normal <150 mg/dL Borderline high 150 - 199 mg/dL High 200 - 499 mg/dL Very High > or = 500 mg/dL LAB L501.6400 mg/dL Low HDL 36 Result Comment: The drugs N-Acetylcysteine and Metamizole may falsely depress this assay. Reference Range HDL <40 mg/dL Low HDL Cholesterol HDL >or= 60 mg/dL High HDL Cholesterol LAB L501.6500 0-130 mg/dL Normal LDL 77 LAB L501.6600 5-40 mg/dL Normal VLDL 33 Performed By: #### L500.4100 #### [facility] [address] [place], [place], [address] CBC-COMPLETE BLOOD CNT Collected: 04/12/2018 Status: F Source: [place] NO DIFF 4:59 AM [facility] REPOSITORY TYPE CODE TESTS RESULT OUT OF RANGE REFERENCE UNITS LAB L100.1000 4.4-11.0 K/mm3 Normal WBC 6.7 LAB L100.1200 4.2-5.4 M/mm3 Low RBC 3.51 LAB L100.1300 12.0-15.0 g/dl Low HGB 10.9 LAB L100.1400 37-47 % Low HCT 32.5 LAB L100.1500 81-99 fL Normal MCV 92.6 LAB L100.1600 27.0-32.0 pg Normal MCH 31.1 LAB L100.1700 32-36 g/gl Normal MCHC 33.5 LAB L100.1810 11.6-14.6 % Normal RDW CV 12.6 LAB L100.1820 35.1-43.9 fl Normal RDW SD 40.7 LAB L100.1900 150-450 K/mm3 Normal PLT 275 LAB L100.2000 6.2-12.0 fl Normal MPV 9.1 Performed By: #### L100.0500 #### [facility] [address] [place], [place], [address] PROTHROMBIN TIME W/INR Collected: 04/12/2018 Status: F Source: [place] 4:59 AM [facility] REPOSITORY TYPE CODE TESTS RESULT OUT OF RANGE REFERENCE UNITS LAB L300.4150 11.7-14.9 SECONDS High PROTIME 15.7 LAB L300.4200 Normal INR 1.3 Performed By: #### L300.3900, L300.4310 #### [facility] [address] [place], [address] PARTIAL THROMBOPLAST Collected: 04/12/2018 Status: F Source: [facility] TIME 4:59 AM [facility] REPOSITORY TYPE CODE TESTS RESULT OUT OF RANGE REFERENCE UNITS LAB L300.4310 24.1-36.2 Seconds Normal PTT 32.9 Performed By: #### L300.3900, L300.4310 #### [facility] [address] [place], [address] TROPONIN-I Collected: 04/11/2018 Status: F Source: [place] 6:33 PM [facility] REPOSITORY Order Comment: 'TROP' Serial specimen #1, #2 or #3: 3 TYPE CODE TESTS RESULT OUT OF RANGE REFERENCE UNITS LAB L501.4010 <0.045 ng/mL Normal < 0.015 TROPONIN-I Result Comment: TROPONIN-I EXPECTED VALUES <0.045 Negative 0.045 - 0.590 Consistent with Cardiac Damage > OR = 0.600 Critical Value Not every elevated troponin is indicative of SC. These values should be used with clinical judgement in examining the patient's clinical picture for diagnosis. To establish a diagnosis of SC versus myocardial injury, there must be a demonstrated rise and/or fall in the troponin values, in addition to ischemic symptoms, EKG changes, new regional wall motion abnormality, and/or angiographical evidence. PLEASE NOTE: REFERENCE RANGES EDITED 17 Performed By: #### L501.4010 #### [facility] [address], [address] EMERGENCY DEPARTMENT Observed: 04/11/2018 Status: F Source: [place] SUMMARY 4:07 PM [facility] REPOSITORY [facility] Medical Records Department [address] [place] [address] Emergency Department Summary 04/11/18 1017 MR#: [id number] Acct: [id number] Name: KAILA PIÑA Rep #: [id number] : 1965 52 From: Jakob Patterson MD PCP: Patel Barker DO Status: ADM MICHAEL - ER Visit Summary Date of Service: 04/11/18 Chief Complaint: Burning in lower stomach History of Present Illness: The patient is a 52 F hypothyroidism. Prior hysterectomy. Patient states she had a local area restaurant on Thursday. Since that time she has had nausea vomiting and diarrhea. No melena. No fever. No dysuria. Feels that she is dehydrated. She is also had burning chest discomfort radiating to both arms. Prior to Thursday she had no exertional chest pain or exertional dyspnea. She has no known cardiac history. Physical Examination: Middle-aged female no acute distress. Vital signs are stable. She is afebrile. She does not look septic or toxic. H EENT exam unremarkable except for dry mucous membranes. Neck nontender. No JVD no lymphadenopathy. Lungs are clear to auscultation bilaterally. Heart is regular rhythm rate about 110 no murmur. Chest wall is nontender. Abdomen is soft. Nondistended. Normal bowel sounds. She does have mild right upper quadrant tenderness. No rebound or guarding or rigidity. No Chang sign. Right lower quadrant unremarkable. There are no hernias or masses. She is moving all 4 extremities. Calves are nontender without edema. Skin is dry. No diaphoresis. Back is nontender. Neurologically she is awake and alert with no focal motor deficits. Test Results: Her initial EKG shows a sinus rhythm at a rate of 92 with inverted T waves and ST depression in V3 through V6. This is new compared to a prior EKG but the most recent EKG we have for comparison is from 2010. Ultrasound of her right upper quadrant showed no acute abnormality. No gallstones. No cholecystitis. No dilatation of the ducts or fluid. CBC normal. BMP normal. Liver enzymes normal. Lipase normal. Troponin normal. A second troponin is pending. Chest x-ray shows no acute abnormality with some right lower lobe atelectasis. Emergency Department Course and Treatment: Patient will undergo a workup both for chest pain and right upper quadrant abdominal pain. Will be treated with Toradol, a liter of fluid and Zofran. Patient had continued nausea was given a second dose of Zofran and then some Phenergan because she had continued nausea. Treatment Plan: Patient continued nausea. Her only objective finding is an abnormal EKG in leads V3 through V6. That is changed with the most recent EKG is 7 years ago. Due to her intractable nausea and the abnormal EKG I will speak to the hospitalist about admission and further evaluation. Disposition: Admission Impression: Acute abdominal pain with nausea of uncertain etiology Abnormal EKG This note was generated with Sayah dictation software. It may contain incorrect words, spelling, and punctuation that were not noted in review of the chart prior to signing ED Disposition - Plan for ED Patient: Chief Complaint: Dizziness Referrals: Patel Orozco DO [Primary Care Provider] - What to do if you have Problems For any increased pain, shortness of breath, bleeding, nausea or vomiting, chest pain, or any unexpected problems, contact your Primary Care Provider. Call [facility] ([phone]) or report to the closest Emergency Room. Call 911 if necessary. 04/11/18 1607 <Electronically signed by Jakob Patterson MD> Date Jakob Patterson MD Cosigner Signature (If Indicated): Date CC: Patel Barker DO ABDOMEN SINGLE VIEW Observed: 04/11/2018 Status: F Source: [place] (PORTABLE) 3:51 PM [facility] REPOSITORY [facility] Imaging Services [address] [place] [address] Abdomen Single View (Portable) MR#: [id number] Acct: [id number] Name: KAILA PIÑA Rep #: [id number] : 1965 F 52 From: Myles Diallo MD PCP: Patel Barker DO Status: ADM MICHAEL Study: Abdomen Single View (Portable) Date of Exam: 04/11/18 Exam# [id number] Ordering Dr: Ruddy Stone DO STUDY: X-RAY - ABDOMEN/PELVIS REASON FOR EXAM: Female, 52 years old. Diarrhea. TECHNIQUE: Single AP view of the abdomen / pelvis. COMPARISON: None. FINDINGS: Normal visualized lung bases. There is an unremarkable bowel gas pattern. There is no demonstrated free abdominal air. The visualized liver, spleen and kidneys are grossly normal in size and morphology. Normal soft tissue structures. Normal visualized osseous structures. RAD/Abdomen Single View (Portable) IMPRESSION: Normal x-ray examination of the abdomen and pelvis. Electronically Signed: Myles Diallo MD at 17:01 EST , Service support , CC: Ruddy Stone DO; Patel Barker DO Filling Room Operator: Signed HISTORY AND PHYSICAL Observed: 04/11/2018 Status: F Source: [place] EXAM 2:49 PM [facility] REPOSITORY [facility] Medical Records Department [address] [place] [address] History and Physical 04/11/18 1440 MR#: [id number] Acct: [id number] Name: KAILA PIÑA Rep #: [id number] : 1965 52 From: Ruddy Stone DO PCP: Patel Barker DO Status: REG ER Y Location: ED Problem List (1) Chest pain Status: Acute (2) Gastroenteritis Status: Acute History of Present Illness Date of Admission: 04/11/18 Chief Complaint: chest and abdominal pain, nausea, vomiting. The patient is a 52 year old F presents with a 5-day history of chest pain, abdominal pain, nausea, vomiting, diarrhea and abdominal bloating. Patient had symptoms but less severe in the 4 but has never had them been evaluated before. Patient stated the chest pain was across her chest and also down her arms but similar to what she said in the past. Patient was concerned because the symptoms are unresolved. Patient presented to the ED ER with the symptoms and had an EKG that showed some ST depressions in the lateral leads. Patient being admitted for further chest pain rule out and evaluation. [] Past Medical History Past Medical History (Chronic Problems): Chronic Problems (Last Reviewed 07/24/17 @ 10:55 by Bernie Malik) Tobacco use disorder (Chronic) Medical History: Medical History (Last Updated 04/11/18 @ 14:42 by Ruddy Stone DO) H/O: hysterectomy Z90.710 Anemia D64.9 Cervical cancer C53.9 H/O: hysterectomy Z98.890, Z90.710 Allergies No Known Allergies Allergy (Unverified 04/11/18 09:53) Home Medications: Ambulatory Orders Medication Instructions Recorded Unobtainable 04/11/18 Surgical History: Surgical History (Last Reviewed 04/11/18 @ 14:42 by Ruddy Stone DO) H/O knee surgery Z98.890 Surgical History: no surgical history Psychiatric History: No pertinent psych hx Lives: With Family Smoking Status: Former smoker - Quit August 23, 2017. Tobacco Use: Non-smoker Alcohol: None Drugs: None - *Family History Maternal Family History: Family History (Last Reviewed 04/11/18 @ 14:43 by Ruddy Stone DO) Other Diabetes Heart disease Review of Systems Constitutional: Reports: Anorexia. Denies: Chills, Fever Eyes: Denies: Blurred vision, Double vision HEENT: Denies: Head Aches, Sinus Congestion, Sinus Drainage Cardiovascular: Reports: Chest Pain. Denies: Edema Respiratory: Denies: Cough, Shortness of Breath Gastrointestinal: Reports: Abdominal Pain, Diarrhea, Nausea, Vomiting Genitourinary: Denies: Dysuria Musculoskeletal: Reports: Arm Pain. Denies: Leg Pain Skin: Denies: Rash, Wounds Neurological: Denies: Numbness, Tingling, Focal weakness Psychiatric: Denies: Anxiety, Depression Endocrine: Denies: Change in Body Habitus, Heat/ Cold Intolerance Hematologic/ Lymphatic: Denies: Easy Bruising, Easy Bleeding, Hx of blood clot Comment: A 10 point review of systems were negative except as mentioned in the history of present illness and the other review of systems. VTE Information - Inpt Only VTE Present on Admission: No VTE Pharm Prophylaxis ordered?: Yes Patient Problems: Active and Suspected Problems (Last Reviewed 07/24/17 @ 10:55 by Bernie Malik) Chest pain (Acute) Gastroenteritis (Acute) - Physical Exam General: Alert, Well developed, Well nourished, - - Uncomfortable. Nearly retched while was there. HEENT: Atraumatic, Normocephalic Oral: Moist Mucosa, No Gingival or Mucosal Lesions/ Ulcerations Neck: No Nodes, Thyroid Normal Size and Texture Lungs: Clear to auscultation, Normal air movement, No rhonchi, No wheeze Cardiovascular: Regular rate, Regular Rhythm, Normal S1, Normal S2, No murmurs Abdomen: Bowel Sounds Present, Soft, Hypoactive Bowel Sounds, Distended, Tender - Tender Extremities: No edema, No Calf Tenderness Skin: No rashes, No breakdown Musculoskeletal: No Tenderness to Palpation of Joints or Extremities, No Muscle Wasting Neurological: Muscle tone normal, Sensory exam intact to light touch and pain Psych/Mental Status: Appropriate, Anxious Vital Signs Temp Pulse Resp BP Pulse Ox 36.7 C 79 16 123/58 H 95 04/11/18 14:28 04/11/18 14:32 04/11/18 14:32 04/11/18 14:32 04/11/18 14:32 Oxygen Delivery Method Room Air Weight: 68.039 kg Body Mass Index (BMI) 26.5 Laboratory Tests Past 24 Hrs WBC Cancelled 8.1 Corrected WBC Cancelled RBC Cancelled 3.95 L Hgb Cancelled 12.0 WBC Corrected WBC Clinical Impression(s) from Imaging Studies Gallbladder Ultrasound 04/11/18 10:09 IMPRESSION: Normal gallbladder. No cholelithiasis or biliary dilatation. Echogenic pancreas may be due to fatty infiltration. Electronically Signed: Medhat Person DO at 12:33 EST Tel [phone], Service support , Chest X-Ray 04/11/18 10:29 IMPRESSION: Chronic appearing lung markings. Right lower lobe atelectasis. Electronically Signed: Aundrea Edouard MD at 10:43 EST Tel , Service support , EKG reviewed and showed normal sinus rhythm with some ST depressions in the anterolateral leads. Assessment/Plan All Active Problems (Last Reviewed 07/24/17 @ 10:55 by Bernie Malik) Chest pain (Acute) Gastroenteritis (Acute) Acute bronchitis (Acute) Chest congestion (Acute) Maxillary sinusitis, acute (Acute) 1. Chest pain * TERRENCE 3 * TEODORO 122 * concern for cardiac etiology * cycle troponins (initial 2 negative), ASA, stress test 2. Abdominal pain * cardiac v IBS v PUD v ileus/SBO v psychosomatic * check abd xray * PPI * follow up with GI as outpt * antiemetics 3. DVT proph: SCDs Discussed with patient's family at bedside. Code Visit OBSV Sophia AND M: [id number] Initial observation care L3 04/11/18 1449 <Electronically signed by Ruddy Stone DO> Date Ruddy Stone DO Cosigner Signature: Date (if applicable) CC: Ruddy Stone DO; Patel Barker DO Signed TROPONIN-I Collected: 04/11/2018 Status: F Source: DIANELYS 1:29 PM [facility] REPOSITORY Order Comment: 'TROP' Serial specimen #1, #2 or #3: 1 Has pt arrived? Y TYPE CODE TESTS RESULT OUT OF RANGE REFERENCE UNITS LAB L501.4010 <0.045 ng/mL Normal < 0.015 TROPONIN-I Result Comment: TROPONIN-I EXPECTED VALUES <0.045 Negative 0.045 - 0.590 Consistent with Cardiac Damage > OR = 0.600 Critical Value Not every elevated troponin is indicative of SC. These values should be used with clinical judgement in examining the patient's clinical picture for diagnosis. To establish a diagnosis of SC versus myocardial injury, there must be a demonstrated rise and/or fall in the troponin values, in addition to ischemic symptoms,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 Self Exam - Recommended calcium intake with supplements or by diet (goal of 7122-8939 mg/day - Follow up for annual exam in one year. 2. Perimenopausal disorder - ICD9: 627.9, ICD10: N95.9 - referral for consideration of bio identical hormone therapy - CONSULT TO GYNECOLOGY 3. Hot flashes - ICD9: 782.62, ICD10: R23.2 - CONSULT TO GYNECOLOGY 4. Chronic insomnia - ICD9: 780.52, ICD10: F51.04 See above - CONSULT TO GYNECOLOGY 5. Onychomycosis - ICD9: 110.1, ICD10: B35.1 - continue Lamisil x 4 weeks then discontinue, improved Patel Orozco, DO To ER if develops chest pain, shortness of breath, or severe worsening of symptoms. Discussed risks, benefits, alternatives, and potential side effects of medications. Patient expressed understanding and agreed with the plan. Patel Orozco DO [address] [place] [address] Referring Provider: ELISA NARAYANAN ([facility]) [[id number]] Allergies As of Date: 01/06/2018 (No Known Allergies) Date Reviewed: 01/06/2018 Reviewed by: Ana Lilia Arias LPN - Fully Assessed Reason for Visit: Establish Care [42] Primary Visit Diagnosis:Well adult exam [Z00.00] Other Visit Diagnoses:Perimenopausal disorder [N95.9] Hot flashes [R23.2] Chronic insomnia [F51.04] Onychomycosis [B35.1] Order(s):CONSULT TO GYNECOLOGY [9074] Order #: [id number]: 1 Prescriptions as of 01/06/2018 Sig: GABAPENTIN 300 MG CAPSULE Take 1 capsule by mouth daily* MELOXICAM 15 MG TABLET Take 1 tablet by mouth once d* TERBINAFINE HCL 250 MG TABLET Take 1 tablet by mouth once d* 5-HYDROXYTRYPTOPHAN (5-HTP) 1* Take 200 mg by mouth once lucian* MULTIVITAMIN TABLET Take 1 tablet by mouth once d* Problem List As Of Date 01/06/2018 Noted Resolved Hot flashes [R23.2] INVALID FOR* More... Degenerative arthritis of thumb [M18.10] INVALID FOR* Tobacco abuse disorder [Z72.0] INVALID FOR* More... Lymphocytosis [D72.820] INVALID FOR*03/23/2017 More... Leukocytosis [D72.829] INVALID FOR* Other instructions from your clinician: Vitamin D3 2,000 IU a day with food Medications Discontinued During This Encounter cloNIDine HCl (CATAPRES) 0.1 mg tabl* 90 t* 3 11/03/2017 01/06/2018 Route: ORAL Sig: Take 1 tablet by mouth daily at bedtime. Disc: Reason for discontinue is not on file. meloxicam (MOBIC) 15 mg tablet 30 t* 0 01/01/2018 01/06/2018 Route: ORAL Sig: Take 1 tablet by mouth once daily. for pain. Take with food. Disc: Reason for discontinue is not on file. Encounter Status:Closed by PATEL OROZCO DO on 01/06/18 PROGRESS Observed: 11/03/2017 Status: COMPLETED Source: [place]XE 10:05 AM [facility] HNO ID: [id number] Author: Elisa Olivia) Lady Service: (none) Author Type: Nurse Practitioner Type: Progress Notes Filed: 11/03/2017 10:09 AM Note Text: HPI/CC: Kaila Piña is a 52 year old female who presents for clonidoin f/u for hot flashes and night sweats. Over all patient doing much better. Noticed a significant decrease in symptom. Was able to sleep last night without night sweats. Denies SE of medication. ROS as above, otherwise non-contributory. Reviewed PMHx, PSHx, social Hx, medications and allergies. PHYSICAL EXAMINATION: BP 90/62 Pulse 72 Resp 16 Wt 68 kg (150 lb) BMI 27.00 kg/m? General appearance: Well appearing, alert, in no acute distress, well-hydrated, well nourished. Skin: Skin color, texture, turgor normal, no suspicious rashes or lesions Lungs: Lungs clear to auscultation. No wheezing, rhonchi, rales Heart: RRR without murmur, gallop, or rubs. No ectopy ASSESSMENT/PLAN: 1. Hot flashes - ICD9: 782.62, ICD10: R23.2 - CLONIDINE HCL 0.1 MG TABLET- continue - f/u as scheduled - discussed low BP and symptoms to report to office. Elisa Narayanan APRN.CNP CNOV Observed: 11/03/2017 Status: COMPLETED Source: [place]XE 9:40 AM [facility] Office Visit ([facility]) KAILA PIÑA ([id number]) 1965 F Date Time Provider Department 11/03/17 9:40 AM ELISA NARAYANAN) [facility] During your visit today, we recorded the following information about you: Pulse Respiration Blood pressure Weight 72/minute 16/minute 90/62 68 kg Elisa Narayanan APRN.CNP 11/03/2017 10:09 AM Signed HPI/CC: Kaila Piña is a 52 year old female who presents for clonidoin f/u for hot flashes and night sweats. Over all patient doing much better. Noticed a significant decrease in symptom. Was able to sleep last night without night sweats. Denies SE of medication. ROS as above, otherwise non-contributory. Reviewed PMHx, PSHx, social Hx, medications and allergies. PHYSICAL EXAMINATION: BP 90/62 Pulse 72 Resp 16 Wt 68 kg (150 lb) BMI 27.00 kg/m? General appearance: Well appearing, alert, in no acute distress, well-hydrated, well nourished. Skin: Skin color, texture, turgor normal, no suspicious rashes or lesions Lungs: Lungs clear to auscultation. No wheezing, rhonchi, rales Heart: RRR without murmur, gallop, or rubs. No ectopy ASSESSMENT/PLAN: 1. Hot flashes - ICD9: 782.62, ICD10: R23.2 - CLONIDINE HCL 0.1 MG TABLET- continue - f/u as scheduled - discussed low BP and symptoms to report to office. Elisa Narayanan APRN.YARELI Referring Provider: PATEL OROZCO [[id number]] Allergies As of Date: 11/03/2017 (No Known Allergies) Date Reviewed: 11/03/2017 Reviewed by: Stephon Mckeon LPN - Fully Assessed Reason for Visit: Recheck [92] Cmt: 4-6 week follow up Primary Visit Diagnosis:Hot flashes [R23.2] Order(s):cloNIDine HCl (CATAPRES) 0.1 mg tabletTake 1 tablet by mouth daily at bedtime.Disp: 90 tabletRfl: 3 Prescriptions as of 11/03/2017 Sig: CLONIDINE HCL 0.1 MG TABLET Take 1 tablet by mouth daily * MELOXICAM 15 MG TABLET Take 1 tablet by mouth once d* TERBINAFINE HCL 250 MG TABLET Take 1 tablet by mouth once d* GABAPENTIN 300 MG CAPSULE Take 1 capsule by mouth daily* 5-HYDROXYTRYPTOPHAN (5-HTP) 1* Take 200 mg by mouth once lucian* MULTIVITAMIN TABLET Take 1 tablet by mouth once d* Problem List As Of Date 11/03/2017 Noted Resolved Hot flashes [R23.2] INVALID FOR* More... Degenerative arthritis of thumb [M18.10] INVALID FOR* Tobacco abuse disorder [Z72.0] INVALID FOR* More... Lymphocytosis [D72.820] INVALID FOR*03/23/2017 More... Leukocytosis [D72.829] INVALID FOR* Prescriptions ordered this encounter Disp Refills Start End CLONIDINE HCL 0.1 MG TABLET 90 t* 3 11/03/2017 Route: ORAL Sig: Take 1 tablet by mouth daily at bedtime. Medications Discontinued During This Encounter venlafaxine ER (EFFEXOR XR) 37.5 mg * 30 c* 0 09/15/2017 11/03/2017 Route: ORAL Sig: Take 1 capsule by mouth once daily. Disc: Course of therapy completed estradiol (ESTRACE) 1 mg tablet 30 t* 2 10/06/2017 11/03/2017 Route: ORAL Sig: Take 1 tablet by mouth once daily. Disc: Course of therapy completed cloNIDine HCl (CATAPRES) 0.1 mg tabl* 30 t* 0 10/28/2017 11/03/2017 Route: ORAL Sig: Take 1 tablet by mouth daily at bedtime. Disc: Reason for discontinue is not on file. Encounter Status:Closed by ELISA NARAYANAN CNP on 11/03/17 PROGRESS Observed: 10/06/2017 Status: COMPLETED Source: [place] 10:12 AM [facility] [place] [facility] ID: [id number] Author: Elisa Narayanan (Yareli) Service: (none) Author Type: Nurse Practitioner Type: Progress Notes Filed: 10/06/2017 10:16 AM Note Text: HPI/CC: Kaila Piña is a 52 year old female who presents for menopausal symptoms. Currently taking Effexor x 3 weeks, reports symptoms are worse. Also attempted PO estrogen and Celexa without relief. Estrogen provided some relief. Experiences hot flashes 5-6 times a day and every 1-2 hours ar night- waking up in sweats. Stopped smoking August 23, 2017. ROS as above, otherwise non-contributory. Reviewed PMHx, PSHx, social Hx, medications and allergies. PHYSICAL EXAMINATION: BP 110/64 Pulse 72 Resp 20 Wt 67.1 kg (148 lb) BMI 26.64 kg/m? General appearance: Well appearing, alert, in no acute distress, well-hydrated, well nourished. Skin: Skin color, texture, turgor normal, no suspicious rashes or lesions Lungs: Lungs clear to auscultation. No wheezing, rhonchi, rales Heart: RRR without murmur, gallop, or rubs. No ectopy Abdomen: Normal abdominal exam, Abdomen soft, non-tender. Bowel sounds normal. No masses, organomegaly ASSESSMENT/PLAN: 1. Hot flashes - ICD9: 782.62, ICD10: R23.2 - ESTRADIOL 1 MG TABLET - GABAPENTIN 300 MG CAPSULE - wean Effexor - f/u in 4-6 weeks Elisa Narayanan APRN.YARELI ESPITIAOV Observed: 10/06/2017 Status: COMPLETED Source: [place] 8:40 AM [facility] Office Visit ([facility]) KAILA PIÑA ([id number]) 1965 F Date Time Provider Department 10/06/17 8:40 AM ELISA NARAYANAN ([facility]) [facility] During your visit today, we recorded the following information about you: Pulse Respiration Blood pressure Weight 72/minute 20/minute 110/64 67.1 kg Elisa Narayanan (Yareli) 10/06/2017 10:16 AM Signed HPI/CC: Kaila Piña is a 52 year old female who presents for menopausal symptoms. Currently taking Effexor x 3 weeks, reports symptoms are worse. Also attempted PO estrogen and Celexa without relief. Estrogen provided some relief. Experiences hot flashes 5-6 times a day and every 1-2 hours ar night- waking up in sweats. Stopped smoking August 23, 2017. ROS as above, otherwise non-contributory. Reviewed PMHx, PSHx, social Hx, medications and allergies. PHYSICAL EXAMINATION: BP 110/64 Pulse 72 Resp 20 Wt 67.1 kg (148 lb) BMI 26.64 kg/m? General appearance: Well appearing, alert, in no acute distress, well-hydrated, well nourished. Skin: Skin color, texture, turgor normal, no suspicious rashes or lesions Lungs: Lungs clear to auscultation. No wheezing, rhonchi, rales Heart: RRR without murmur, gallop, or rubs. No ectopy Abdomen: Normal abdominal exam, Abdomen soft, non-tender. Bowel sounds normal. No masses, organomegaly ASSESSMENT/PLAN: 1. Hot flashes - ICD9: 782.62, ICD10: R23.2 - ESTRADIOL 1 MG TABLET - GABAPENTIN 300 MG CAPSULE - wean Effexor - f/u in 4-6 weeks Elisa Narayanan APRN.[employer] Referring Provider: SELF [[id number]] Allergies As of Date: 10/06/2017 (No Known Allergies) Date Reviewed: 10/06/2017 Reviewed by: Racheal Low LPN - Fully Assessed Reason for Visit: Recheck [92] Cmt: Follow up Primary Visit Diagnosis:Hot flashes [R23.2] Order(s):estradiol (ESTRACE) 1 mg tabletTake 1 tablet by mouth once daily.Disp: 30 tabletRfl: 2 gabapentin (NEURONTIN) 300 mg capsuleTake 1 capsule by mouth daily at bedtime for 60 days.Disp: 30 capsuleRfl: 1 Prescriptions as of 10/06/2017 Sig: VENLAFAXINE ER 37.5 MG CAPSUL* Take 1 capsule by mouth once * MELOXICAM 15 MG TABLET Take 1 tablet by mouth once d* 5-HYDROXYTRYPTOPHAN (5-HTP) 1* Take 200 mg by mouth once lucian* TERBINAFINE HCL 250 MG TABLET Take 1 tablet by mouth once d* MULTIVITAMIN TABLET Take 1 tablet by mouth once d* ESTRADIOL 1 MG TABLET Take 1 tablet by mouth once d* GABAPENTIN 300 MG CAPSULE Take 1 capsule by mouth daily* Problem List As Of Date 10/06/2017 Noted Resolved Hot flashes [R23.2] INVALID FOR* More... Degenerative arthritis of thumb [M18.10] INVALID FOR* Tobacco abuse disorder [Z72.0] INVALID FOR* More... Lymphocytosis [D72.820] INVALID FOR*03/23/2017 More... Leukocytosis [D72.829] INVALID FOR* Prescriptions ordered this encounter Disp Refills Start End ESTRADIOL 1 MG TABLET 30 t* 2 10/06/2017 Route: ORAL Sig: Take 1 tablet by mouth once daily. GABAPENTIN 300 MG CAPSULE 30 c* 1 10/06/2017 12/05/2017 Route: ORAL Sig: Take 1 capsule by mouth daily at bedtime for 60 days. Medications Discontinued During This Encounter COMPOUNDED PRESCRIPTION 0 08/26/2016 10/06/2017 Class: Historical Med Route: ORAL Sig: Take 400 mg by mouth once daily. Takes Amberen Takes 1 white capsule and 1 orange capsule daily Disc: Reason for discontinue is not on file. Encounter Status:Closed by ELISA NARAYANAN CNP on 10/06/17 PROGRESS Observed: 09/15/2017 Status: COMPLETED Source: SAXE 8:02 AM [facility] HNO ID: [id number] Author: Stephon Quintanilla Service: (none) Author Type: Nurse Practitioner Type: Progress Notes Filed: 09/15/2017 9:04 AM Note Text: CC: Patient presents with: Recheck: 6 month follow up HPI Kaila Piña is a 52 year old female who presents today for 6 month follow up and review of medical conditions. Patient also complains of increased hot flashes. She as been experiencing 2-4 episodes per night where she wakes dripping in sweat. She also reports increased fatigue which she attributes to lack of sleep d/t hot flashes. Patient was recently started on Celexa ~2 months ago for symptom management by her DIRECTOR EMERGENCY DEPARTMENT and Estrogen was discontinued at that time. Patient reports symptoms have continued without improvement, may be worse. She does note she quit smoking ~23 days ago and has gained ~5lbs. She also reports bilateral thumb pain over the last several months. Pain is described as sharp pain, worse with thumb ROM. Pain radiates down thumb to wrist. Notes increased weakness in opening things and is often dropping items. She denies any numbness, tingling, electric or shock sensations or recent injury. Tried ibuprofen without relief. REVIEW OF SYSTEMS General: no fevers, no chills, no recurrent infections and no change in appetite See HPI HEENT: no frequent or significant headaches, no changes in hearing, no visual changes, no nose bleeds, no sinus or nasal problems Neck: no lumps, no pain and no swelling Respiratory: no cough, no wheezing, no shortness of breath, no hemoptysis Cardiovascular: no chest pain, no chest pressure, no palpitations and no swelling GI: No nausea, vomiting, or diarrhea : No history of dysuria, frequency or incontinence Skin: Negative for lesions, rash, and itching Hematologic/Lymph: Negative for prolonged bleeding, bruising easily or swollen nodes Neurologic: No headache, numbness, tingling, neck stiffness, tremor, vertigo, dizziness, memory loss, syncope. PAST MEDICAL HISTORY Diagnosis Date - Cervical cancer (HCC) PAST SURGICAL HISTORY Procedure Laterality Date - EXTRACTION ERUPTED TOOTH/EXR - HYSTERECTOMY HX - KNEE SURGERY HX 2004 ALLERGIES Review of patient's allergies indicates no known allergies. MEDICATIONS citalopram hydrobromide (CELEXA) 10 mg tablet Take 1 tablet by mouth once daily. estradiol (ESTRACE) 1 mg tablet Take 1 tablet by mouth once daily. 5-Hydroxytryptophan (5-HTP) 100 mg cap Take 200 mg by mouth once daily. COMPOUNDED PRESCRIPTION Take 400 mg by mouth once daily. Takes Amberen Takes 1 white capsule and 1 orange capsule daily terbinafine HCl (LAMISIL) 250 mg tablet Take 1 tablet by mouth once daily. multivitamin tablet Take 1 tablet by mouth once daily. FAMILY HISTORY Problem Relation Age of Onset - pacemaker [OTHER] Mother - diverticulitis [OTHER] Mother - Diabetes Father - Hypertension Father - Diabetes Brother - Heart Maternal Grandmother - Heart Maternal Grandfather - Heart Paternal Grandmother - Heart Paternal Grandfather Social History Substance Use Topics - Smoking status: Current Every Day Smoker Packs/day: 0.50 Years: 30.00 - Smokeless tobacco: Never Used - Alcohol use No PHYSICAL EXAM BP 118/68 Pulse 74 Temp 36.6 ?C (97.9 ?F) (Temporal Artery) Resp 16 Wt 65.8 kg (145 lb) SpO2 97% BMI 26.1 kg/m2 General Appearance: well appearing, in no acute distress, alert Skin: Skin color, texture, turgor normal for age; Head: normocephalic, atraumatic Eyes: PERRLA, EOM's intact, conjunctiva pink and moist, no icterus, sclera white, non-injected Ears: external ears normal to inspection and palpation, canals clear, Left tympanic membrane normal. , Right tympanic membrane normal Neck: Thyroid normal size and symmetric without palpable nodules, No adenopathy Oropharynx: lips normal without lesions, tongue midline and normal, soft palate, uvula, and tonsils normal Lungs: Lungs clear to auscultation. No wheezing, rhonchi, rales Heart: RRR without murmur, gallop, or rubs. No ectopy Bilateral Lower Extremities: No deformities, edema, skin discoloration, clubbing or cyanosis. Good capillary refill. Musculoskeletal: No joint swelling, deformity, Positive: Left thumb: Thenar tenderness with palpation, full ROM with pain; Right thumb: Thenar tenderness with palpation, full ROM with pain; strength equal bilaterally, Tinel test negative TETANUS due on 1975 ADULT PREVNAR-13 due on 1983 MAMMOGRAM due on 04/06/2018 DIABETES SCREEN due on 11/19/2019 TWO PNEUMOVAX 5 YEARS APART PRIOR TO AGE 65(2) due on 08/26/2021 LIPID SCREEN due on 11/18/2021 PAP EVERY 5 YEARS due on 07/16/2022 HPV EVERY 5 YEARS due on 07/16/2022 COLORECTAL CANCER SCREENING,SEE MODIFIER due on 10/03/2026 INFLUENZA Completed HEPATITIS C SCREENING Completed ASSESSMENT/PLAN: 1. Hot flashes - ICD9: 782.62, ICD10: R23.2 (primary diagnosis) - Stop Celexa - VENLAFAXINE ER 37.5 MG CAPSULE,EXTENDED RELEASE 24 HR - Follow up in 3-4 weeks, sooner if new or worsening symtpoms 2. Pain of both thumbs - ICD9: 729.5, ICD10: M79.644, M79.645 - No acute or concerning exam findings. Differentials include soft tissue inflammation and arthritis - MELOXICAM 15 MG TABLET - Follow up in 2 weeks if no symptom improvement, sooner if new or worsening symptoms 3. Need for vaccination - ICD9: V05.9, ICD10: Z23 - PNEUMOCOCCAL-13 VACCINE PCV-13 Prescription instructions reviewed with patient as applicable. Potential red flag symptoms discussed with the patient. Reviewed appropriate action plan to take if red flag symptoms occur. Patient agreeable to treatment plan. Stephon Quintanilla APRN.DEF[employer] CNOV Observed: 09/15/2017 Status: COMPLETED Source: SAXE 8:00 AM [facility] Office Visit (INTM[facility]) KAILA PIÑA ([id number]) 1965 F Date Time Provider Department 09/15/17 8:00 AM STEPHON QUINTANILLA ([facility]) IN[facility] During your visit today, we recorded the following information about you: Temperature Pulse Respiration Blood pressure 97.9 degrees 74/minute 16/minute 118/68 Weight 65.8 kg Stephon Quintanilla APRN.CNP 09/15/2017 9:04 AM Signed CC: Patient presents with: Recheck: 6 month follow up HPI Kaila Piña is a 52 year old female who presents today for 6 month follow up and review of medical conditions. Patient also complains of increased hot flashes. She as been experiencing 2-4 episodes per night where she wakes dripping in sweat. She also reports increased fatigue which she attributes to lack of sleep d/t hot flashes. Patient was recently started on Celexa ~2 months ago for symptom management by her DIRECTOR EMERGENCY DEPARTMENT and Estrogen was discontinued at that time. Patient reports symptoms have continued without improvement, may be worse. She does note she quit smoking ~23 days ago and has gained ~5lbs. She also reports bilateral thumb pain over the last several months. Pain is described as sharp pain, worse with thumb ROM. Pain radiates down thumb to wrist. Notes increased weakness in opening things and is often dropping items. She denies any numbness, tingling, electric or shock sensations or recent injury. Tried ibuprofen without relief. REVIEW OF SYSTEMS General: no fevers, no chills, no recurrent infections and no change in appetite See HPI HEENT: no frequent or significant headaches, no changes in hearing, no visual changes, no nose bleeds, no sinus or nasal problems Neck: no lumps, no pain and no swelling Respiratory: no cough, no wheezing, no shortness of breath, no hemoptysis Cardiovascular: no chest pain, no chest pressure, no palpitations and no swelling GI: No nausea, vomiting, or diarrhea : No history of dysuria, frequency or incontinence Skin: Negative for lesions, rash, and itching Hematologic/Lymph: Negative for prolonged bleeding, bruising easily or swollen nodes Neurologic: No headache, numbness, tingling, neck stiffness, tremor, vertigo, dizziness, memory loss, syncope. PAST MEDICAL HISTORY Diagnosis Date - Cervical cancer (HCC) PAST SURGICAL HISTORY Procedure Laterality Date - EXTRACTION ERUPTED TOOTH/EXR - HYSTERECTOMY HX - KNEE SURGERY HX 2004 ALLERGIES Review of patient's allergies indicates no known allergies. MEDICATIONS citalopram hydrobromide (CELEXA) 10 mg tablet Take 1 tablet by mouth once daily. estradiol (ESTRACE) 1 mg tablet Take 1 tablet by mouth once daily. 5-Hydroxytryptophan (5-HTP) 100 mg cap Take 200 mg by mouth once daily. COMPOUNDED PRESCRIPTION Take 400 mg by mouth once daily. Takes Amberen Takes 1 white capsule and 1 orange capsule daily terbinafine HCl (LAMISIL) 250 mg tablet Take 1 tablet by mouth once daily. multivitamin tablet Take 1 tablet by mouth once daily. FAMILY HISTORY Problem Relation Age of Onset - pacemaker [OTHER] Mother - diverticulitis [OTHER] Mother - Diabetes Father - Hypertension Father - Diabetes Brother - Heart Maternal Grandmother - Heart Maternal Grandfather - Heart Paternal Grandmother - Heart Paternal Grandfather Social History Substance Use Topics - Smoking status: Current Every Day Smoker Packs/day: 0.50 Years: 30.00 - Smokeless tobacco: Never Used - Alcohol use No PHYSICAL EXAM BP 118/68 Pulse 74 Temp 36.6 ?C (97.9 ?F) (Temporal Artery) Resp 16 Wt 65.8 kg (145 lb) SpO2 97% BMI 26.1 kg/m2 General Appearance: well appearing, in no acute distress, alert Skin: Skin color, texture, turgor normal for age; Head: normocephalic, atraumatic Eyes: PERRLA, EOM's intact, conjunctiva pink and moist, no icterus, sclera white, non-injected Ears: external ears normal to inspection and palpation, canals clear, Left tympanic membrane normal. , Right tympanic membrane normal Neck: Thyroid normal size and symmetric without palpable nodules, No adenopathy Oropharynx: lips normal without lesions, tongue midline and normal, soft palate, uvula, and tonsils normal Lungs: Lungs clear to auscultation. No wheezing, rhonchi, rales Heart: RRR without murmur, gallop, or rubs. No ectopy Bilateral Lower Extremities: No deformities, edema, skin discoloration, clubbing or cyanosis. Good capillary refill. Musculoskeletal: No joint swelling, deformity, Positive: Left thumb: Thenar tenderness with palpation, full ROM with pain; Right thumb: Thenar tenderness with palpation, full ROM with pain; strength equal bilaterally, Tinel test negative TETANUS due on 1975 ADULT PREVNAR-13 due on 1983 MAMMOGRAM due on 04/06/2018 DIABETES SCREEN due on 11/19/2019 TWO PNEUMOVAX 5 YEARS APART PRIOR TO AGE 65(2) due on 08/26/2021 LIPID SCREEN due on 11/18/2021 PAP EVERY 5 YEARS due on 07/16/2022 HPV EVERY 5 YEARS due on 07/16/2022 COLORECTAL CANCER SCREENING,SEE MODIFIER due on 10/03/2026 INFLUENZA Completed HEPATITIS C SCREENING Completed ASSESSMENT/PLAN: 1. Hot flashes - ICD9: 782.62, ICD10: R23.2 (primary diagnosis) - Stop Celexa - VENLAFAXINE ER 37.5 MG CAPSULE,EXTENDED RELEASE 24 HR - Follow up in 3-4 weeks, sooner if new or worsening symtpoms 2. Pain of both thumbs - ICD9: 729.5, ICD10: M79.644, M79.645 - No acute or concerning exam findings. Differentials include soft tissue inflammation and arthritis - MELOXICAM 15 MG TABLET - Follow up in 2 weeks if no symptom improvement, sooner if new or worsening symptoms 3. Need for vaccination - ICD9: V05.9, ICD10: Z23 - PNEUMOCOCCAL-13 VACCINE PCV-13 Prescription instructions reviewed with patient as applicable. Potential red flag symptoms discussed with the patient. Reviewed appropriate action plan to take if red flag symptoms occur. Patient agreeable to treatment plan. Stephon Quintanilla APRN.DEFECTIVE CIGARETTE SLITTER Referring Provider: BRAEDEN COATES [[id number]] Allergies As of Date: 09/15/2017 (No Known Allergies) Date Reviewed: 09/15/2017 Reviewed by: Saundra Obando Ma - Fully Assessed Reason for Visit: Recheck [92] Cmt: 6 month follow up Primary Visit Diagnosis:Hot flashes [R23.2] Other Visit Diagnoses:Pain of both thumbs [M79.644, M79.645] Need for vaccination [Z23] Order(s):PNEUMOCOCCAL-13 VACCINE PCV-13 [[id number]] Order #: [id number] venlafaxine ER (EFFEXOR XR) 37.5 mg 24 hr capsuleTake 1 capsule by mouth once daily.Disp: 30 capsuleRfl: 0 meloxicam (MOBIC) 15 mg tabletTake 1 tablet by mouth once daily. for pain. Take with food.Disp: 30 tabletRfl: 0 Prescriptions as of 09/15/2017 Sig: VENLAFAXINE ER 37.5 MG CAPSUL* Take 1 capsule by mouth once * MELOXICAM 15 MG TABLET Take 1 tablet by mouth once d* 5-HYDROXYTRYPTOPHAN (5-HTP) 1* Take 200 mg by mouth once lucian* COMPOUNDED PRESCRIPTION Take 400 mg by mouth once lucian* TERBINAFINE HCL 250 MG TABLET Take 1 tablet by mouth once d* MULTIVITAMIN TABLET Take 1 tablet by mouth once d* Medication notes this encounter ESTRADIOL 1 MG TABLET >> Saundra Obando Ma 09/15/2017 8:03 AM >> SAUNDRA OBANDO MA Sep 15, 2017 8:03 AM Not taking Problem List As Of Date 09/15/2017 Noted Resolved Hot flashes [R23.2] INVALID FOR* More... Degenerative arthritis of thumb [M18.10] INVALID FOR* Tobacco abuse disorder [Z72.0] INVALID FOR* More... Lymphocytosis [D72.820] INVALID FOR*03/23/2017 More... Leukocytosis [D72.829] INVALID FOR* Prescriptions ordered this encounter Disp Refills Start End VENLAFAXINE ER 37.5 MG CAPSULE,EXTEN* 30 c* 0 09/15/2017 Route: ORAL Sig: Take 1 capsule by mouth once daily. MELOXICAM 15 MG TABLET 30 t* 0 09/15/2017 Route: ORAL Sig: Take 1 tablet by mouth once daily. for pain. Take with food. Medications Discontinued During This Encounter estradiol (ESTRACE) 1 mg tablet 30 t* 2 07/09/2017 09/15/2017 Route: ORAL Sig: Take 1 tablet by mouth once daily. Disc: Reason for discontinue is not on file. citalopram hydrobromide (CELEXA) 10 * 30 t* 2 07/16/2017 09/15/2017 Route: ORAL Sig: Take 1 tablet by mouth once daily. Disc: Reason for discontinue is not on file. Encounter Status:Closed by STEPHON QUINTANILLA CNP on 09/15/17 PROGRESS Observed: 07/30/2017 Status: COMPLETED Source: SAXE 9:46 AM [facility] [place] REPOSITORY HNO ID: [id number] Author: Daniela Pat Psr Service: (none) Author Type: (none) Type: Progress Notes Filed: 07/30/2017 9:46 AM Note Text: pap logged, letter sent. Daniela Pat Psr CNCO Observed: 07/28/2017 Status: COMPLETED Source: SAXE 12:00 AM [facility] REPOSITORY Letter Text [address] [place] [address] [phone] 07/28/2017 Kaila Piña [address] [facility] [address] Dear Ms. Piña: Due to a change in the provider's schedule, it has been necessary to reschedule your appointment. Enclosed please find a new appointment reminder that will replace the one previously sent to you. If this appointment is not convenient for you, please contact our office at [phone]. Thank you for choosing the [facility] as your Healthcare Provider. Sincerely, Appointment Office URGENT CARE VISIT Observed: 07/25/2017 Status: F Source: DIANELYS REPORT 9:08 AM [facility] REPOSITORY [facility] [address] [place] [address] [address] [place] [address] OFFICE VISIT Date of Service: 07/24/17 MR#: [id number] Acct: [id number] Name: KAILA PIÑA Rep #: [id number] : 1965 Provider: Pradeep HART Age/Sex: 52/F Location: [facility] Status: Signed Intake Vital Signs07/24/17 Height 5 ft 3 in Intake Visit Reasons: CHEST CONGESTION Is patient in pain?: No Allergies No Known Allergies Allergy (Unverified 07/24/17 10:55) Medications amoxicillin 500 mg capsule 1,000 mg PO BID 10 Days #40 cap 07/20/17 [Rx Confirmed 07/24/17] calcium carbonate-vitamin D3 250 mg-125 unit tablet 1 tab PO BID 07/20/17 [History Confirmed 07/24/17] citalopram 10 mg tablet PO 30 Days #30 07/20/17 [History Confirmed 07/24/17] estradiol 1 mg tablet PO 30 Days #30 07/20/17 [History Confirmed 07/24/17] multivitamin capsule 1 cap PO QAM 07/20/17 [History Confirmed 07/24/17] azithromycin 250 mg tablet 250 mg PO QDAY 5 Days #6 tab 07/24/17 [Rx Confirmed 07/24/17] benzonatate 100 mg capsule 200 mg PO TID PRN #30 cap 07/24/17 [Rx Confirmed 07/24/17] methylprednisolone 4 mg tablets in a dose pack 4 mg PO PER PKG DIR 5 Days #21 tab 07/24/17 [Rx Confirmed 07/24/17] PFSH Medical History Anemia (Acute) Cervical cancer (Acute) Surgical History H/O knee surgery (Acute) H/O: hysterectomy (Acute) Family History Other Diabetes Heart disease Social History Smoking Status: Current every day smoker alcohol intake: never HPI HPI Details: KAILA PIÑA, is a 52 F who presents to the office today for increasing cough and congestion. Patient states that she was here 4 days ago and diagnosed with sinusitis. On that date the patient was started on amoxicillin 1000 mg p.o. twice daily 10 days. Patient states that her sinus congestion has improved however now feels as if the drainage has moved to her chest. She describes her cough as wet and productive of yellow sputum however denies hemoptysis, shortness of breath or difficulty breathing. Patient is a pack-a-day smoker and has been for the past 30 years and is concerned for possible pneumonia. She denies fever, chills, sweats. No nausea, vomiting, diarrhea. No other associated symptoms or alleviating/aggravating factors. ROS Const Constitutional: No fever(s), chills, headache(s), night sweats or abnormal sleep pattern ENT ENT: Positive for nasal discharge, nasal congestion and post nasal drip; no headache(s), ear pain, ear discharge or sore throat Resp Respiratory: Positive for cough Cough: Yes productive, wheezing and pain with cough; no hemoptysis or shortness of breath Cardio Cardiology: No chest pain at rest or shortness of breath Neuro Neurology: No headache(s), behavioral changes or confusion Psych Psychiatric: No abnormal sleep pattern, No behavioral changes, No confusion Aller/Imm Allergy/Immunologic: Positive for wheezing Exam Const General: cooperative, well developed HENMT Head: normal to inspection, atraumatic Ears: hearing grossly normal bilaterally Nose: nasal discharge clear Face and sinus: normal facial exam Mouth: oral mucosae normal Throat: abnormal tonsil bilaterally Resp Effort AND Inspection: normal respiratory effort, no audible wheezes Auscultation: Bilateral: Clear to Auscultation Cardio Rate: regular rate Rhythm: regular rhythm Heart Sounds: S1 normal, S2 normal Skin General: no rashes or lesions noted Neuro General: alert, CN's II-XI intact bilaterally Psych Appearance: grossly normal Mental Status: mental status grossly normal Assessment AND Plan Problems 1. Acute bronchitis, unspecified organism J20.9 Status Acute Plan Chest x-ray reviewed and interpreted by myself to find no acute cardiopulmonary processes. Awaiting radiology interpretation at time of dictation. Patient advised to discontinue use of amoxicillin and start on azithromycin and Medrol Dosepak 5 days. Patient was also advised to discontinue use of her citalopram while taking the Z-Ze. Encouraged to get plenty of rest, drink lots of clear liquids, and use Tylenol or Ibuprofen (unless contraindicated) for fever and comfort. Patient also educated on other symptomatic management techniques. To be seen in 7-10 days if no improvement; sooner if worsening of symptoms. Patient advised of potential red flags and when appropriate report to the ED. Patient verbalized understanding of all the above. This note was generated with [employer] dictation software. It may contain incorrect words, spelling, and punctuation that were not noted in checking the note before signing. Orders Orders: Medications New: Coding Level of Care Code Off vis,est,level 4 Diagnoses Acute bronchitis, unspecified organism J20.9 Bronchitis organism: unspecified organism 07/25/17 0908 <Electronically signed by Pradeep HART> Date Pradeep HART Cosigner Signature: Date (if applicable) CC: CHEST PA AND LATERAL Observed: 07/24/2017 Status: F Source: DIANELYS 11:11 AM [facility] REPOSITORY [facility] Imaging Services [address] [place] [address] Chest PA and Lateral MR#: [id number] Acct: [id number] Name: KAILA PIÑA Rep #: [id number] : 1965 F 52 From: Alfonso Caputo MD PCP: Braeden Coates MD Status: REG CLI Study: Chest PA and Lateral Date of Exam: 07/24/17 Exam# [id number] Ordering Dr: Pradeep Minaya STUDY: X-RAY CHEST REASON FOR EXAM: Female, 52 years old. One-week history of chest congestion and cough. TECHNIQUE: PA and lateral views of the chest. COMPARISON: None. FINDINGS: The lungs are clear and expanded. There is no demonstrated pleural abnormality. Normal size heart. Normal mediastinum and jose. Normal visualized pulmonary arteries. Normal visualized aortic arch and descending thoracic aorta. Normal visualized thoracic spine. Normal visualized ribs, clavicles, and shoulders. There is no demonstrated abnormality of the visualized soft tissue structures of the upper abdomen. RAD/Chest PA and Lateral IMPRESSION: Normal x-ray examination of the chest. Electronically Signed: Alfonso Caputo MD at 11:34 EST Tel [phone], Service support , CC: Braeden Coates MD; Pradeep HART Filling Room Operator: Signed URGENT CARE VISIT Observed: 07/20/2017 Status: F Source: DIANELYS REPORT 11:57 AM [facility] REPOSITORY [facility] [address] [place] [address] [address] [place] [address] OFFICE VISIT Date of Service: 07/20/17 MR#: [id number] Acct: [id number] Name: KAILA PIÑA Rep #: [id number] : 1965 Provider: Mauri HART Age/Sex: 52/F Location: [facility] Status: Signed Intake Vital Signs07/20/17 Height 5 ft 3 in Intake Visit Reasons: CHEST CONGESTION/SINU Chief Complaint: sinus pressure Is patient in pain?: No Allergies No Known Allergies Allergy (Unverified 07/20/17 11:40) Medications amoxicillin 500 mg capsule 1,000 mg PO BID 10 Days #40 cap 07/20/17 [Rx Confirmed 07/20/17] calcium carbonate-vitamin D3 250 mg-125 unit tablet 1 tab PO BID 07/20/17 [History Confirmed 07/20/17] citalopram 10 mg tablet PO 30 Days #30 07/20/17 [History Confirmed 07/20/17] estradiol 1 mg tablet PO 30 Days #30 07/20/17 [History Confirmed 07/20/17] multivitamin capsule 1 cap PO QAM 07/20/17 [History Confirmed 07/20/17] PFSH Medical History Anemia (Acute) Cervical cancer (Acute) Surgical History H/O knee surgery (Acute) H/O: hysterectomy (Acute) Family History Other Diabetes Heart disease Social History Smoking Status: Current every day smoker alcohol intake: never HPI HPI Chief Complaint: sinus pressure Details: KAILA PIÑA, is a 52 F who presents to the office today for initial evaluation 5 day history of progressively worsening right facial pressure and postnasal drip and fever/chills. Patient notes symptoms beginning last and have only worsened since then. She notes no complaints of sweats or rash or chest pain/shortness of breath though occasional cough which is worse when supine. Patient admits to being a smoker. No other associated symptoms no other alleviating or aggravating factors. ROS Const Constitutional: Positive for chills and fever(s); no excessive sweating, abnormal sleep pattern, night sweats or body ache Eyes Eyes: No change in vision ENT ENT: Positive for post nasal drip, sinus pressure and sinus pain; no abnormal hearing, ear pain, ear discharge, ear pressure, hearing loss, nasal congestion or sore throat Resp Respiratory: Positive for cough; no chest congestion Cardio Cardiology: No excessive sweating, chest pain at rest, chest pain with exertion, shortness of breath, dyspnea on exertion, irregular heart rhythm, generalized swelling or leg pain with exertion Gastro GI: No abdominal pain, change in stool character or change in bowel habits Musc Musculoskeletal: No joint pain, back pain or limited range of motion Skin Skin: No change in hair or sores Neuro Neurology: No abnormal hearing, abnormal speech or abnormal movements Psych Psychiatric: No abnormal sleep pattern Endo Endocrine: No excessive sweating, change in body appearance, cold intolerance or heat intolerance Aller/Imm Allergy/Immunologic: No food intolerance Don/Lymp Hematologic/Lymphatic: No easy bruising Exam Const General: cooperative, no acute distress, ill appearing, uncomfortable Nutritional Appearance: average body habitus Orientation: alert, awake, oriented x3 HENMT Head: normal to inspection Ears: hearing grossly normal bilaterally, external ears normal, TM's normal bilaterally, EAC's normal Nose: external nose normal, nares normal, septum normal, no nasal discharge Face and sinus: normal facial exam, sinus tenderness (Right) maxillary Mouth: oral mucosae normal, lip normal, tongue normal, oropharynx normal Teeth and gingiva: gingiva normal, dentition normal Throat: posterior oropharynx normal, tonsils normal, uvula midline, postnasal drainage (Purulent) Eyes General: appearance normal, both eyes and all related structures Neck Neck: normal visual inspection, full ROM, no meningeal signs, supple, lymphadenopathy (Bilateral anterior cervical node swelling and tenderness to palpation) Neck mass: No Thyroid: thyroid normal Lymphatic: no lymphadenopathy noted Chest Chest palpation AND inspection: normal inspection of the chest Resp Effort AND Inspection: normal respiratory effort, able to speak in complete sentences, symmetric chest movement, no cough (No unsolicited cough appreciated during today's exam) Auscultation: Bilateral: Clear to Auscultation Cardio Palpation: normal PMI Rate: regular rate Rhythm: regular rhythm Heart Sounds: S1 normal, S2 normal, no gallops, no murmurs, no rubs Pulses: radial pulses present GI Inspection: normal to inspection Palpation: soft, no hepatosplenomegaly Skin General: no rashes or lesions noted Neuro General: alert, awake, oriented x3, gait normal Cognition: normal cognition Speech: speech normal Gait: normal gait Motor: muscle tone normal throughout Sensory Exam: no sensory deficits noted Extrem General: normal to inspection Psych Appearance: grossly normal Mental Status: mental status grossly normal Mood: congruent mood Affect: normal affect Speech and Movement: speech and movement normal Attitude: cooperative Thought Process: normal Thought Content: normal Judgment: judgment good Assessment AND Plan Problems 1. Maxillary sinusitis, acute J01.00 Plan Amoxicillin as prescribed today. Clear fluids, rest, Advil/Tylenol, warm facial compresses as needed as instructed today. Stop smoking! Follow-up with PCP in 3-5 days should symptoms not improve, sooner should symptoms worsen or any other concerns develop. Patient states acknowledging understanding all the above. This note was generated with [employer] Medical[employer] software. It may contain incorrect words, spelling, and punctuation that were not noted in checking the note before signing. Medications New: Coding Level of Care Code Off vis,est,level 4 Diagnoses Maxillary sinusitis, acute J01.00 07/20/17 1157 <Electronically signed by Mauri HART> Date Mauri HART Cosigner Signature: Date (if applicable) CC: CYTOLOGY Observed: 07/16/2017 Status: C Source: SAXE 2:14 PM [facility] REPOSITORY ADDITIONAL PROCEDURES PRESENT Specimen originated from [facility] Specimen #: [id number] Submitting Physician: LASHON FLEMING CNP SPECIMEN SUBMITTED A: VAGINAL VAULT,DIAGNOSTIC, FLUID FINAL DIAGNOSIS A. VAGINAL VAULT,DIAGNOSTIC, FLUID Satisfactory for interpretation. Negative for intraepithelial lesion or malignancy. This specimen has been analyzed by the ThinPrep Imaging System, an automated imaging and review system, which assists the laboratory in evaluating cells on ThinPrep Pap tests. Following automated imaging, selected guo from every slide are reviewed by a technologist development. KIMBERLYN Shaw(ASCP) (Electronic Signature) ADDITIONAL PROCEDURE(S) HUMAN PAPILLOMA VIRUS Date Ordered: 07/20/2017 Date Reported: 07/21/2017 Procedure Results and Interpretation Negative for HPV DNA high risk type 16 by PCR. Negative for HPV DNA high risk type 18 by PCR. Negative for HPV DNA high risk types: 31,33,35,39,45,51,52,56,58,59,66,68 by PCR. This test was developed and its performance characteristics determined by [facility]'s [facility] [place] ([facility]). It has not been cleared or approved by the FDA. [facility] is regulated under CLIA as qualified to perform high-complexity testing. This test is used for clinical purposes. It should not be regarded as investigational or for research. CLINICAL DATA HYSTERECTOMY CERVIX cervical cancer HPV Testing: Yes, automatic HPV patients over 30 Date of Last Menstrual Period: Hysterectomy STAINS A: VAGINAL VAULT,DIAGNOSTIC, FLUID THIN PREP DIRECTOR EMERGENCY DEPARTMENT Selma Holman M.D., Stone Operator Date of Report: 07/29/2017 Date of Procedure: 07/16/2017 Date of Receipt: 07/20/2017 Submitted by: LASHON FLEMING CNP Location: [facility] Diagnostic interpretation performed at [facility], [address] [place] [address]. The Pap Smear is a screening test for cervical cancer. False negative results occur with all screening tests, emphasizing the need for rescreening at recommended intervals, and clinical correlation. CNOV Observed: 07/16/2017 Status: COMPLETED Source: SAXE 1:45 PM [facility] REPOSITORY Office Visit (WOOB) WENDI PIÑAISE ([id number]) 1965 F Date Time Provider Department 07/16/17 1:45 PM LASHON FLEMING (YARELI) WOOB During your visit today, we recorded the following information about you: Blood pressure Weight Height 110/62 64.7 kg 1.588 m LASHON FLEMING CNP 07/16/2017 2:32 PM Signed Kaila Piña is a 52 year old who presents for her annual gynecologic exam without complaints. History of cervical cancer resulting in hysterectomy. Postmenopausal: hysterectomy due to cervical cancer 1993 HRT use: No. Last Pap: 2016 normal HPV: unknown History of abnormal pap: Yes Last mammogram: 2017 normal History of abnormal mammogram: Yes, fibrocystic breasts Sexually active: Yes Patient concerns for STD exposure: No. 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 Type: work out Diet: nutrisystem Seatbelt use: Yes Obstetric History T0 L2 SAB1 TAB0 Ectopic0 Multiple0 Live Births0 PAST MEDICAL HISTORY Diagnosis Date - Cervical cancer (HCC) PAST SURGICAL HISTORY Procedure Laterality Date - EXTRACTION ERUPTED TOOTH/EXR - HYSTERECTOMY HX - KNEE SURGERY HX 2004 FAMILY HISTORY Problem Relation Age of Onset - Diabetes Father - Hypertension Father - Diabetes Brother - Heart Maternal Grandmother - Heart Maternal Grandfather - Heart Paternal Grandmother - Heart Paternal Grandfather SOCIAL HISTORY Social History Substance Use Topics - Smoking status: Current Every Day Smoker Packs/day: 0.50 Years: 30.00 - Smokeless tobacco: Not on file - Alcohol use No REVIEW OF SYSTEMS Abdomen: No abdominal pain, nausea, vomiting, diarrhea, or constipation. No bloating, early satiety, indigestion, or increased flatulence. Bladder: No dysuria, gross hematuria, urinary frequency, urinary urgency, or incontinence Breast: No breast lumps, nipple d/c, overlying skin changes, redness or skin retraction Allergies and current medication updated:Yes EXAM: BP 110/62 Ht 5' 2.5ANDquot; (1.59m) Wt 142 lb 9.6 oz (64.7kg) BMI 25.65 kg/(m2). GENERAL: pleasant, female in no apparent distress HEENT: Normocephalic, atraumatic, mucus membranes moist and no lesions NECK: Supple, full range of motion, no adenopathy and thyroid normal DERMATOLOGY: Normal, without lesions, non-icteric and non-hirsute BREAST: soft, non-tender, symmetric, no dominant mass, normal nipple-areolar complex, no lymphadenopathy, no nipple discharge and fibrocystic changes CHEST: Normal inspiratory effort ABDOMEN: soft, non-tender and no masses PELVIC: external genitalia normal, normal Bartholin's glands, urethra, [place]'s glands, no vulvar lesions, good vaginal support, physiologic discharge present, normal appearing perineal body and perianal region, cervix surgically absent BIMANUAL: no adnexal masses, non-tender and uterus surgically absent RECTOVAGINAL: deferred. NEURO: alert and oriented x3,exam grossly non-focal EXTREMITIES: normal ASSESSMENT/PLAN: 1) Health maintenance: Pap of vaginal vault done with HPV. Mammogram ordered Nutrition, exercise and routine health maintenance exams reviewed. Calcium/Vitamin D supplementation information provided. Colon cancer screening: up to date with screening 2. Hot flashes - ICD9: 782.62, ICD10: R23.2 - Taking estrace 1 mg daily but has had no improvement in hot flashes. Will try citalopram 10 mg daily. Given written information on non-hormonal ways to cope with hot flashes. - CITALOPRAM 10 MG TABLET Will call in 3-4 weeks with progress report on hot flashes. Will increase dose to 20 mg if no or minimal improvement. RTO annual exam. YARELI BLANDON CNP 07/16/2017 2:16 PM Signed Calcium and Vitamin D Supplementation (from the National Institutes of Health Office of Dietary Supplements 2010) calcium 600 mg twice daily and Vit D 1000 IU daily Calcium is required by the body for blood vessel, muscle, hormone and nerve functioning. Most of the body's calcium is stored in the bones and teeth where it supports structure and function. Bone is continuously broken down and reformed. When bone breakdown exceeds formation, especially in postmenopausal women, bone loss can increase the risk of osteoporosis and fractures. In addition to low calcium intake, women who smoke, have a family history of osteoporosis, are thin, or , or who take certain medications such as cancer chemotherapy, seizure mediations and steroids are at increased risk of osteoporosis. The calcium requirements in women change with age. The National Institutes of Health (NIH) recommends: 1000mg elemental calcium for premenopausal women age 19-50 1200mg elemental calcium for postmenopausal women and all women over 50 Milk, yogurt, and cheese are rich natural sources of calcium and are the major food contributors in the [place]. For example, 8oz of milk (whole, lowfat or skim) contains about 300mg calcium, 8oz of yogurt contains 415mg. Nondairy sources include salmon and sardines and vegetables, such as [place] cabbage, kale, and broccoli. Foods fortified with calcium include many fruit juices, tofu and cereals. For more food calcium content information, visit http://ods.od.nih.gov/factsheets/calcium. Calcium supplements come in several different forms. Remember that the recommendations are for millgrams (mg) of elemental calcium which may be less than the total weight of the supplement. The amount of elemental calcium is required to be printed on the label. Calcium carbonate is the least expensive form. It must be taken on a full stomach to be properly absorbed. Some patients may experience gas or constipation. Calcium phosphate and calcium citrate may be taken either with or without food and tend to have less side effects but are generally more expensive. Because of its ability to neutralize stomach acid, calcium carbonate is found in some joon-rbu-dmakghq antacid products, such as Tums? and Rolaids?. Depending on its strength, each chewable pill or softchew provides 200 to 400 mg of elemental calcium. The percentage of calcium absorbed depends on the total amount of elemental calcium consumed at one time. Absorption is highest in doses ANDlt;500mg. So a woman who takes 1,000mg/day of calcium from supplements should split the dose and take 500mg at two separate times during the day. Too much calcium can cause kidney stones, constipation, difficulty absorbing other nutrients and calcium buildup in blood vessels. Women under 50 should not exceed 2500mg/day (2000mg/day for women over 50) of calcium from food and supplements. Excessive alcohol and caffeine intake can inhibit absorption of calcium. Calcium can reduce the absorption of some medications if taken at the same time of day (bisphosphonates, thyroid medication, Phenytoin and other seizure medications, some antibiotics and iron supplements). Vitamin D promotes calcium absorption in the gut and maintains adequate blood levels of calcium and phosphate for normal bone growth and bone remodeling. Vitamin D also helps regulate cell growth as well as nerve, muscle and immune system function. Vitamin D is produced in the skin as a result of ultraviolet sunlight rays and must be altered in the liver and kidney to become its active form. Recommended intake according to the National Institutes of Health is 600 International Units (IU) for girls and women ages 1-70 and 800 IU for women over 70. Very few foods in nature contain vitamin D. The flesh of fatty fish (such as salmon, tuna, and mackerel) and fish liver oils are among the best sources. Small amounts of vitamin D are found in beef liver, cheese, mushrooms and egg yolks. Most people meet at least some of their vitamin D needs through exposure to sunlight. Season, time of day, length of day, cloud cover, smog, skin melanin content, and sunscreen are among the factors that affect UV radiation exposure and vitamin D synthesis. Despite the importance of the sun for vitamin D synthesis, it is prudent to limit exposure of skin to sunlight and avoid tanning beds. UV radiation is a carcinogen responsible for most of the estimated 1.5 million skin cancers that occur annually in the [place]. Lifetime cumulative UV damage to skin is also responsible for some age-associated dryness and other cosmetic changes. In supplements and fortified foods, vitamin D is available in two forms, D2 (ergocalciferol) and D3 (cholecalciferol). The two are equivalent at normal supplement doses. For women who require high supplement doses because of vitamin D deficiency, D3 may work better to raise blood levels. Some medications can prevent proper absorption of Vitamin D. These include laxatives, corticosteroids like prednisone, the seizure drugs phenobarbital and phenytoin, the weight-loss drug orlistat ( Xenical? and AlliTM) and the cholesterol-lowering drug cholestyramine (Questran?, LoCholest?, and Prevalite?). Talk to your doctor about adjusting your recommended daily vitamin D dosage if you take these medications. You should not exceed 4000 mg of vitamin D supplementation daily unless specifically prescribed by your doctor. Non-Hormonal Ways to [place] with Hot Flashes and Menopause Hormone therapy is the most effective therapy for hot flashes. It is also the only FDA approved method to treat hot flashes. However, other non-hormonal options are available for women who are suffering from symptoms, but are not yet ready to consider hormone therapy. Some women are not appropriate candidates for hormone therapy, such as those have been recently treated for breast cancer, ovarian cancer, or endometrial/uterine cancer. It is important to remember that when used appropriately, hormone therapy can be a safe and effective option for many women. Here we will review non-hormonal treatment options for women. Knowing the triggers of hot flashes Hot flashes may be precipitated by hot weather, smoking, caffeine, spicy foods, alcohol, tight clothing, heat and stress. Identify and avoid your hot flash ANDquot;triggers.ANDquot; Some women notice hot flashes when they eat a lot of sugar. Exercising in warm temperatures might make hot flashes worse. Diet Avoiding caffeine, spicy foods, and alcohol can help lessen both the number and severity of hot flashes. Many women try to incorporate more plant estrogens into their diet. Plant estrogens, such as isoflavones, are thought to have weak estrogen-like effects that may reduce hot flashes. They may work in the body like a weak form of estrogen. Examples of plant estrogens include: soybeans, chickpeas, lentils, flaxseed, grains, beans, fruits, red clover and vegetables. In general, soybeans, chickpeas, and lentils are considered to have the most powerful plant estrogens, though their effect is much less than that of human estrogen. Try to choose natural foods rather than supplements. Also remember that only crushed or ground forms of flaxseed are likely to help (as compared to the whole seed or seed oil forms). What foods have high amounts of isoflavones Food Isoflavone Amount (Mg) In Food (100g) Soymilk 9.65 Soybeans, green, raw 151.17 Soy flour (textured) 148.61 148.61 Soybeans, dry roasted 128.35 Instant beverage soy, powder, not reconstituted 109.51 Miso soup mix, dry 60.39 Soybean chips 54.16 Tempeh, cooked 53.00 Soybean curd cheese 28.20 Tofu, silken 27.91 Tofu, yogurt 16.30 Source: [facility] -- [facility] Database on the Isoflavone Content of Foods, 1998 Lifestyle changes Reducing the temperature in a room, dressing in layers, and the use of a fan while asleep can be effective ways to help deal with troublesome hot flashes. Women who are overweight tend to have more bothersome hot flashes, therefore weight loss can be helpful. Quitting smoking has a dual importance during menopause. First, smoking contributes to the increased cardiovascular risks of being postmenopausal. Second, smokers tend to experience more hot flashes. Women who lead a sedentary life seem to suffer more from hot flashes; however, it is best to exercise in a cooler environment. Try deep, slow abdominal breathing (6 to 8 breaths per minute). Practice deep breathing for 15 minutes in the morning, 15 minutes in the evening and at the onset of hot flashes. For some women, wearing socks to bed is helpful as it can help to cool core body temperature. Relieving insomnia ? Keep the bedroom cool to prevent night sweats. ? Avoid using sleeping pills. ? Exercise daily. ? Avoid caffeine and alcohol at night. ? Take a warm bath or shower at bedtime. ? Try milk products at bedtime or during the night (but avoid products that contain caffeine). ? Coping with mood swings, fears, and depression ? Find a self-calming skill to practice, such as yoga, meditation or slow, deep breathing. ? Avoid tranquilizers, if possible. ? Engage in a creative outlet that fosters a sense of achievement. ? Stay connected with your family and community; nurture your friendships. Relieving painful intercourse Try using a vaginal water-based moisturizing lotion or lubricant during intercourse. These are sold without a prescription near the condoms in most stores. Common names include-Astroglide? and [place] liquid?. Avoid Vaseline?, as it may lead to yeast infections. Prescription and nonprescription remedies A number of non-hormonal remedies are available for the treatment of hot flashes. Some of these remedies (e.g., black cohosh and soy products) are available auov-wfx-tyuegvf but are not FDA-approved. Some prescription medications are used ?off label? to help reduce hot flashes. Using a product ANDquot;off labelANDquot; means that it is not FDA approved for the treatment of hot flashes, but is often used because it can be safe and effective for hot flash treatment.(considered the more effective non-hormonal treatments): Drug Side Effect Effectiveness venlafaxine (Effexor?) Nausea, change in bowel habits, headache (temporary side effects for most). Elevated blood pressure (at high doses) Effectiveness has been proven in several well-designed studies. One of the safer medications for women taking tamoxifen (no drug interaction). desvenlafaxine (Pristiq?) Similar to venlafaxine. Nausea, change in bowel habits, headache (temporary side effects for most). Elevated blood pressure (at high doses) Improvement in hot flashes compared to placebo has been shown. Newer med compared to venlafaxine, so a smaller number of studies are available. fluoxetine (Prozac?) Nausea, change in bowel habits, decreased libido, insomnia. Should be avoided in women taking tamoxifen. Improvement in hot flashes has been shown in well-designed studies. paroxetine (Paxil?) Nausea, change in bowel habits, decreased libido, dry mouth, weight gain (not common) Should be avoided in women taking tamoxifen. eTends to be more effective for sleep in women who are also suffering with insomnia. Improvement in hot flashes has been shown in well-designed studies. scitalopram (Lexapro?) Nausea, change in bowel habits, decreased libido, abnormal EKG (not common) Improvement in hot flashes has been shown in well- designed studies. Gabapentin (Neurontin?) Fatigue, dizziness, nausea, disorientation, swelling, weight gain Tends to be more effective for sleep in women who are also suffering with insomnia. Clonidine (Catapres?) Dry mouth, drowsiness, fatigue, constipation, lowers blood pressure Relieved hot flashes in some, but not all studies.Less commonly used than some of the other options. Non-prescription, herbal, dnno-nma-kspqtju therapies: Drug Side Effects Effectiveness Evening [place] Oil Nausea, diarrhea, headache. Only one well-designed study showing not effective. Black cohosh Mild stomach upset. Safe up to 6 months only due to possible estrogen-like effects. Liver toxicity has been reported. Some small, short-term studies have suggested benefits, however most studies do not suggest that it works. Soy (plant estrogen) Also referred to as phytoestrogens. Appears safe if consumed in foods. In supplement form, consistency of dose and quality can be a concern. Supplements are not recommended for breast cancer survivors For the most part, results from clinical studies show that phytoestrogens are not effective for treatment of hot flashes. Acupuncture Uncomfortable for some, often costly. Generally well-tolerated, but multiple visits required Individual trials have reported some benefits, but larger studies have not shown any improvement over placebo procedures. However some women do report benefits with this, so it is possible that more well-designed studies are needed to answer this question. Vitamin E 13% increase risk of heart failure. Might increase rate in those who use high doses for a long time. A higher risk of prostate cancer has also been shown, but applies only to men. One study showing effective. However the improvement seen in this was only one less hot flash per day compared to placebo. Are the dhtl-xbo-esvffdi herbal products (botanicals) safe? While safe when taken in moderate amounts through diet, the consumption of extraordinary amounts of soy and isoflavone supplements may be harmful to women with a history of estrogen-dependent cancer, like breast cancer, and possibly to other women as well. More research is needed to determine the safety and effectiveness of botanical treatments. For example, Ginseng, [place], Wild yam, Progesterone cream, reflexology, and magnetic devices are sold to help menopausal symptoms, but there are no good studies looking at their safety or effectiveness. To make an informed decision about the use of these treatments, be sure to discuss them with your doctor. Because little is known about many botanicals, the best way to evaluate their safety and effectiveness is to become an educated consumer. Here are some tips to consider when shopping for alternative therapies. Ask yourself the following questions: ? What is the treatment? ? What does it involve? ? How does it work? ? Why does it work? ? Are there any risks? ? What are the side effects? ? Is it effective? (Ask for evidence or proof) ? How much does it cost? ? Once you answer these questions, discuss the therapy with your doctor. Make sure your doctor knows what therapy you are considering in order to discuss possible interactions or side effects with your current treatment. What are warning signs that a product may not be legitimate? When trying to determine whether or not a product is what it says it is, one of the elements you may want to look at is how the product is promoted. Be cautious of products promoted through: ? Telemarketers ? Direct mailings ? Infomercials ? Ads disguised as valid news articles ? Ads in the back of magazines Additional red flags to look for include: ? Big claims: If products claim to be a ANDquot;cureANDquot; for your condition, or gives outrageous claims, be cautious. ? Source: Be wary if the product is only offered through one real estate officer or purchased only through a health care provider?s office. ? Ingredients: Make sure all of the active ingredients are listed, and don?t trust ANDquot;secret formulas.ANDquot; ? Testimonials: Remember that only people who are satisfied with a product give testimonials and that they may be getting paid for their endorsement References: National Center for Complementary and Alternative Medicine. Vitamin E. nccam.nih.gov Assessed August 23, 2012 Sophia Vick et al. meta-analysis: High Dosage Vitamin E. Supplementation Might Increase All Cause Mortality. Annals of Internal Medicine May 28, 2004. annals.org National Center for Complementary and Alternative Medicine. Menopausal Symptoms and CAM. nccam.nih.gov Accessed August 23, 2012 [place] [employer], Hormone Therapy for women in 2012. www.menopause.org Assessed August 23, 2012 [place] [employer]. Publications. The Menopause Years. www.acog.org Accessed 07/22/2010 Centers for Disease Control and Prevention. Women?s Reproductive Health: Menopause. www.cdc.gov Accessed 07/22/2010 National [place] on Aging. Age Page: Menopause. www.stephanie.nih.gov Accessed 07/22/2010 Daniela Pat Pschristina 07/30/2017 9:46 AM Signed pap logged, letter sent. Daniela Pat Psr Referring Provider: BRAEDEN COATES [[id number]] Allergies As of Date: 07/16/2017 (No Known Allergies) Date Reviewed: 07/16/2017 Reviewed by: Lashon Fleming - Fully Assessed Reason for Visit: Well Woman [[id number]] Primary Visit Diagnosis:Encounter for gynecological examination (general) (routine) without abnormal findings [Z01.419] Other Visit Diagnoses:Encounter for screening for human papillomavirus (HPV) [Z11.51] Cervical cancer screening [Z12.4] Hot flashes [R23.2] Order(s):citalopram hydrobromide (CELEXA) 10 mg tabletTake 1 tablet by mouth once daily.Disp: 30 tabletRfl: 2 PAP FLUID VAGINAL VAULT DIAGNOSTIC [[id number]] Order #: [id number] #:[id number] HPV W/GENOTYPE [[id number]] Order #: [id number]. #:[id number] Prescriptions as of 07/16/2017 Sig: ESTRADIOL 1 MG TABLET Take 1 tablet by mouth once d* 5-HYDROXYTRYPTOPHAN (5-HTP) 1* Take 200 mg by mouth once lucian* TERBINAFINE HCL 250 MG TABLET Take 1 tablet by mouth once d* MULTIVITAMIN TABLET Take 1 tablet by mouth once d* CITALOPRAM 10 MG TABLET Take 1 tablet by mouth once d* COMPOUNDED PRESCRIPTION Take 400 mg by mouth once lucian* Problem List As Of Date 07/16/2017 Noted Resolved Hot flashes [R23.2] INVALID FOR* More... Degenerative arthritis of thumb [M18.10] INVALID FOR* Tobacco abuse disorder [Z72.0] INVALID FOR* More... Lymphocytosis [D72.820] INVALID FOR*03/23/2017 More... Leukocytosis [D72.829] INVALID FOR* Other instructions from your clinician: Calcium and Vitamin D Supplementation (from the National Institutes of Health Office of Dietary Supplements 2010) calcium 600 mg twice daily and Vit D 1000 IU daily Calcium is required by the body for blood vessel, muscle, hormone and nerve functioning. Most of the body's calcium is stored in the bones and teeth where it supports structure and function. Bone is continuously broken down and reformed. When bone breakdown exceeds formation, especially in postmenopausal women, bone loss can increase the risk of osteoporosis and fractures. In addition to low calcium intake, women who smoke, have a family history of osteoporosis, are thin, or , or who take certain medications such as cancer chemotherapy, seizure mediations and steroids are at increased risk of osteoporosis. The calcium requirements in women change with age. The National Institutes of Health (NIH) recommends: 1000mg elemental calcium for premenopausal women age 19-50 1200mg elemental calcium for postmenopausal women and all women over 50 Milk, yogurt, and cheese are rich natural sources of calcium and are the major food contributors in the [place]. For example, 8oz of milk (whole, lowfat or skim) contains about 300mg calcium, 8oz of yogurt contains 415mg. Nondairy sources include salmon and sardines and vegetables, such as [place] cabbage, kale, and broccoli. Foods fortified with calcium include many fruit juices, tofu and cereals. For more food calcium content information, visit http://ods.od.nih.gov/factsheets/calcium. Calcium supplements come in several different forms. Remember that the recommendations are for millgrams (mg) of elemental calcium which may be less than the total weight of the supplement. The amount of elemental calcium is required to be printed on the label. Calcium carbonate is the least expensive form. It must be taken on a full stomach to be properly absorbed. Some patients may experience gas or constipation. Calcium phosphate and calcium citrate may be taken either with or without food and tend to have less side effects but are generally more expensive. Because of its ability to neutralize stomach acid, calcium carbonate is found in some qxza-sod-qvuzzag antacid products, such as Tums? and Rolaids?. Depending on its strength, each chewable pill or softchew provides 200 to 400 mg of elemental calcium. The percentage of calcium absorbed depends on the total amount of elemental calcium consumed at one time. Absorption is highest in doses <500mg. So a woman who takes 1,000mg/day of calcium from supplements should split the dose and take 500mg at two separate times during the day. Too much calcium can cause kidney stones, constipation, difficulty absorbing other nutrients and calcium buildup in blood vessels. Women under 50 should not exceed 2500mg/day (2000mg/day for women over 50) of calcium from food and supplements. Excessive alcohol and caffeine intake can inhibit absorption of calcium. Calcium can reduce the absorption of some medications if taken at the same time of day (bisphosphonates, thyroid medication, Phenytoin and other seizure medications, some antibiotics and iron supplements). Vitamin D promotes calcium absorption in the gut and maintains adequate blood levels of calcium and phosphate for normal bone growth and bone remodeling. Vitamin D also helps regulate cell growth as well as nerve, muscle and immune system function. Vitamin D is produced in the skin as a result of ultraviolet sunlight rays and must be altered in the liver and kidney to become its active form. Recommended intake according to the National Institutes of Health is 600 International Units (IU) for girls and women ages 1-70 and 800 IU for women over 70. Very few foods in nature contain vitamin D. The flesh of fatty fish (such as salmon, tuna, and mackerel) and fish liver oils are among the best sources. Small amounts of vitamin D are found in beef liver, cheese, mushrooms and egg yolks. Most people meet at least some of their vitamin D needs through exposure to sunlight. Season, time of day, length of day, cloud cover, smog, skin melanin content, and sunscreen are among the factors that affect UV radiation exposure and vitamin D synthesis. Despite the importance of the sun for vitamin D synthesis, it is prudent to limit exposure of skin to sunlight and avoid tanning beds. UV radiation is a carcinogen responsible for most of the estimated 1.5 million skin cancers that occur annually in the [place]. Lifetime cumulative UV damage to skin is also responsible for some age-associated dryness and other cosmetic changes. In supplements and fortified foods, vitamin D is available in two forms, D2 (ergocalciferol) and D3 (cholecalciferol). The two are equivalent at normal supplement doses. For women who require high supplement doses because of vitamin D deficiency, D3 may work better to raise blood levels. Some medications can prevent proper absorption of Vitamin D. These include laxatives, corticosteroids like prednisone, the seizure drugs phenobarbital and phenytoin, the weight-loss drug orlistat ( Xenical? and AlliTM) and the cholesterol-lowering drug cholestyramine (Questran?, LoCholest?, and Prevalite?). Talk to your doctor about adjusting your recommended daily vitamin D dosage if you take these medications. You should not exceed 4000 mg of vitamin D supplementation daily unless specifically prescribed by your doctor. Non-Hormonal Ways to [place] with Hot Flashes and Menopause Hormone therapy is the most effective therapy for hot flashes. It is also the only FDA approved method to treat hot flashes. However, other non-hormonal options are available for women who are suffering from symptoms, but are not yet ready to consider hormone therapy. Some women are not appropriate candidates for hormone therapy, such as those have been recently treated for breast cancer, ovarian cancer, or endometrial/uterine cancer. It is important to remember that when used appropriately, hormone therapy can be a safe and effective option for many women. Here we will review non-hormonal treatment options for women. Knowing the triggers of hot flashes Hot flashes may be precipitated by hot weather, smoking, caffeine, spicy foods, alcohol, tight clothing, heat and stress. Identify and avoid your hot flash triggers. Some women notice hot flashes when they eat a lot of sugar. Exercising in warm temperatures might make hot flashes worse. Diet Avoiding caffeine, spicy foods, and alcohol can help lessen both the number and severity of hot flashes. Many women try to incorporate more plant estrogens into their diet. Plant estrogens, such as isoflavones, are thought to have weak estrogen-like effects that may reduce hot flashes. They may work in the body like a weak form of estrogen. Examples of plant estrogens include: soybeans, chickpeas, lentils, flaxseed, grains, beans, fruits, red clover and vegetables. In general, soybeans, chickpeas, and lentils are considered to have the most powerful plant estrogens, though their effect is much less than that of human estrogen. Try to choose natural foods rather than supplements. Also remember that only crushed or ground forms of flaxseed are likely to help (as compared to the whole seed or seed oil forms). What foods have high amounts of isoflavones Food Isoflavone Amount (Mg) In Food (100g) Soymilk 9.65 Soybeans, green, raw 151.17 Soy flour (textured) 148.61 148.61 Soybeans, dry roasted 128.35 Instant beverage soy, powder, not reconstituted 109.51 Miso soup mix, dry 60.39 Soybean chips 54.16 Tempeh, cooked 53.00 Soybean curd cheese 28.20 Tofu, silken 27.91 Tofu, yogurt 16.30 Source: [facility] -- [facility] Database on the Isoflavone Content of Foods, 1998 Lifestyle changes Reducing the temperature in a room, dressing in layers, and the use of a fan while asleep can be effective ways to help deal with troublesome hot flashes. Women who are overweight tend to have more bothersome hot flashes, therefore weight loss can be helpful. Quitting smoking has a dual importance during menopause. First, smoking contributes to the increased cardiovascular risks of being postmenopausal. Second, smokers tend to experience more hot flashes. Women who lead a sedentary life seem to suffer more from hot flashes; however, it is best to exercise in a cooler environment. Try deep, slow abdominal breathing (6 to 8 breaths per minute). Practice deep breathing for 15 minutes in the morning, 15 minutes in the evening and at the onset of hot flashes. For some women, wearing socks to bed is helpful as it can help to cool core body temperature. Relieving insomnia ? Keep the bedroom cool to prevent night sweats. ? Avoid using sleeping pills. ? Exercise daily. ? Avoid caffeine and alcohol at night. ? Take a warm bath or shower at bedtime. ? Try milk products at bedtime or during the night (but avoid products that contain caffeine). ? Coping with mood swings, fears, and depression ? Find a self-calming skill to practice, such as yoga, meditation or slow, deep breathing. ? Avoid tranquilizers, if possible. ? Engage in a creative outlet that fosters a sense of achievement. ? Stay connected with your family and community; nurture your friendships. Relieving painful intercourse Try using a vaginal water-based moisturizing lotion or lubricant during intercourse. These are sold without a prescription near the condoms in most stores. Common names include-Astroglide? and KY liquid?. Avoid Vaseline?, as it may lead to yeast infections. Prescription and nonprescription remedies A number of non-hormonal remedies are available for the treatment of hot flashes. Some of these remedies (e.g., black cohosh and soy products) are available vmdw-bvv-uyrbhho but are not FDA-approved. Some prescription medications are used ?off label? to help reduce hot flashes. Using a product off label means that it is not FDA approved for the treatment of hot flashes, but is often used because it can be safe and effective for hot flash treatment.(considered the more effective non-hormonal treatments): Drug Side Effect Effectiveness venlafaxine (Effexor?) Nausea, change in bowel habits, headache (temporary side effects for most). Elevated blood pressure (at high doses) Effectiveness has been proven in several well-designed studies. One of the safer medications for women taking tamoxifen (no drug interaction). desvenlafaxine (Pristiq?) Similar to venlafaxine. Nausea, change in bowel habits, headache (temporary side effects for most). Elevated blood pressure (at high doses) Improvement in hot flashes compared to placebo has been shown. Newer med compared to venlafaxine, so a smaller number of studies are available. fluoxetine (Prozac?) Nausea, change in bowel habits, decreased libido, insomnia. Should be avoided in women taking tamoxifen. Improvement in hot flashes has been shown in well-designed studies. paroxetine (Paxil?) Nausea, change in bowel habits, decreased libido, dry mouth, weight gain (not common) Should be avoided in women taking tamoxifen. eTends to be more effective for sleep in women who are also suffering with insomnia. Improvement in hot flashes has been shown in well-designed studies. scitalopram (Lexapro?) Nausea, change in bowel habits, decreased libido, abnormal EKG (not common) Improvement in hot flashes has been shown in well-designed studies. Gabapentin (Neurontin?) Fatigue, dizziness, nausea, disorientation, swelling, weight gain Tends to be more effective for sleep in women who are also suffering with insomnia. Clonidine (Catapres?) Dry mouth, drowsiness, fatigue, constipation, lowers blood pressure Relieved hot flashes in some, but not all studies.Less commonly used than some of the other options. Non-prescription, herbal, dkqb-rbk-lksdebn therapies: Drug Side Effects Effectiveness Evening Greenfield Oil Nausea, diarrhea, headache. Only one well-designed study showing not effective. Black cohosh Mild stomach upset. Safe up to 6 months only due to possible estrogen-like effects. Liver toxicity has been reported. Some small, short-term studies have suggested benefits, however most studies do not suggest that it works. Soy (plant estrogen) Also referred to as phytoestrogens. Appears safe if consumed in foods. In supplement form, consistency of dose and quality can be a concern. Supplements are not recommended for breast cancer survivors For the most part, results from clinical studies show that phytoestrogens are not effective for treatment of hot flashes. Acupuncture Uncomfortable for some, often costly. Generally well-tolerated, but multiple visits required Individual trials have reported some benefits, but larger studies have not shown any improvement over placebo procedures. However some women do report benefits with this, so it is possible that more well-designed studies are needed to answer this question. Vitamin E 13% increase risk of heart failure. Might increase rate in those who use high doses for a long time. A higher risk of prostate cancer has also been shown, but applies only to men. One study showing effective. However the improvement seen in this was only one less hot flash per day compared to placebo. Are the wxbu-wmu-dltrayr herbal products (botanicals) safe? While safe when taken in moderate amounts through diet, the consumption of extraordinary amounts of soy and isoflavone supplements may be harmful to women with a history of estrogen-dependent cancer, like breast cancer, and possibly to other women as well. More research is needed to determine the safety and effectiveness of botanical treatments. For example, Ginseng, Dong Quai, Wild yam, Progesterone cream, reflexology, and magnetic devices are sold to help menopausal symptoms, but there are no good studies looking at their safety or effectiveness. To make an informed decision about the use of these treatments, be sure to discuss them with your doctor. Because little is known about many botanicals, the best way to evaluate their safety and effectiveness is to become an educated consumer. Here are some tips to consider when shopping for alternative therapies. Ask yourself the following questions: ? What is the treatment? ? What does it involve? ? How does it work? ? Why does it work? ? Are there any risks? ? What are the side effects? ? Is it effective? (Ask for evidence or proof) ? How much does it cost? ? Once you answer these questions, discuss the therapy with your doctor. Make sure your doctor knows what therapy you are considering in order to discuss possible interactions or side effects with your current treatment. What are warning signs that a product may not be legitimate? When trying to determine whether or not a product is what it says it is, one of the elements you may want to look at is how the product is promoted. Be cautious of products promoted through: ? Telemarketers ? Direct mailings ? Infomercials ? Ads disguised as valid news articles ? Ads in the back of magazines Additional red flags to look for include: ? Big claims: If products claim to be a cure for your condition, or gives outrageous claims, be cautious. ? Source: Be wary if the product is only offered through one real estate officer or purchased only through a health care provider?s office. ? Ingredients: Make sure all of the active ingredients are listed, and don?t trust secret formulas. ? Testimonials: Remember that only people who are satisfied with a product give testimonials and that they may be getting paid for their endorsement References: National Center for Complementary and Alternative Medicine. Vitamin E. [facility] hospital[facility].nih.gov Assessed August 23, 2012 Sophia Vick et al. meta-analysis: High Dosage Vitamin E. Supplementation Might Increase All Cause Mortality. Annals of Internal Medicine May 28, 2004. annals.org National Center for Complementary and Alternative Medicine. Menopausal Symptoms and CAM. [facility] hospitalam.nih.gov Accessed August 23, 2012 [place] [employer], Hormone Therapy for women in 2011. www.menopause.org Assessed August 23, 2012 [place] [employer]stetricians and Gynecologists. Publications. The Menopause Years. www.acog.org Accessed 07/22/2010 Centers for Disease Control and Prevention. Women?s Reproductive Health: Menopause. www.cdc.gov Accessed 07/22/2010 National [place] on Aging. Age Page: Menopause. www.stephanie.nih.gov Accessed 07/22/2010 Prescriptions ordered this encounter Disp Refills Start End CITALOPRAM 10 MG TABLET 30 t* 2 07/16/2017 Route: ORAL Sig: Take 1 tablet by mouth once daily. Medications Discontinued During This Encounter buPROPion XL (WELLBUTRIN XL) 150 mg * 30 t* 3 01/14/2017 07/16/2017 Route: ORAL Sig: Take 1 tablet by mouth once daily. Disc: Reason for discontinue is not on file. Disposition: Return in 1 year (on 07/16/2018) for Annual Exam. Follow-up and Disposition History Recorded Letter [facility] [address] [place], [place] [address] Kaila Piña [address] [facility] [employer] [address] 07/30/2017 [facility]: [id number] Dear Kaila, We are pleased to inform you that your recent Pap Test was within normal limits. Because Pap tests are so effective in the early detection of cervical cancer, you are encouraged to continue having the test at regular intervals. You will be due for a 1 year Gynecological Exam after this date 07/16/2018. If you have any questions regarding the above information, do not hesitate to call our office at between the hours of 8:00 a.m. and 5:00 p.m. Sincerely, Lashon Fleming CNP Encounter Status:Closed by LASHON FLEMING on 07/16/17 PROGRESS Observed: 07/16/2017 Status: COMPLETED Source: [facility] 1:38 PM [facility] REPOSITORY HNO ID: [id number] Author: Lashon Fleming Service: (none) Author Type: Nurse Practitioner Type: Progress Notes Filed: 07/16/2017 2:32 PM Note Text: Kaila Piña is a 52 year old who presents for her annual gynecologic exam without complaints. History of cervical cancer resulting in hysterectomy. Postmenopausal: hysterectomy due to cervical cancer 1993 HRT use: No. Last Pap: 2017 normal HPV: unknown History of abnormal pap: Yes Last mammogram: 2017 normal History of abnormal mammogram: Yes, fibrocystic breasts Sexually active: Yes Patient concerns for STD exposure: No. 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 Type: work out Diet: nutrisystem Seatbelt use: Yes Obstetric History T0 L2 SAB1 TAB0 Ectopic0 Multiple0 Live Births0 PAST MEDICAL HISTORY Diagnosis Date - Cervical cancer (HCC) PAST SURGICAL HISTORY Procedure Laterality Date - EXTRACTION ERUPTED TOOTH/EXR - HYSTERECTOMY HX - KNEE SURGERY HX 2004 FAMILY HISTORY Problem Relation Age of Onset - Diabetes Father - Hypertension Father - Diabetes Brother - Heart Maternal Grandmother - Heart Maternal Grandfather - Heart Paternal Grandmother - Heart Paternal Grandfather SOCIAL HISTORY Social History Substance Use Topics - Smoking status: Current Every Day Smoker Packs/day: 0.50 Years: 30.00 - Smokeless tobacco: Not on file - Alcohol use No REVIEW OF SYSTEMS Abdomen: No abdominal pain, nausea, vomiting, diarrhea, or constipation. No bloating, early satiety, indigestion, or increased flatulence. Bladder: No dysuria, gross hematuria, urinary frequency, urinary urgency, or incontinence Breast: No breast lumps, nipple d/c, overlying skin changes, redness or skin retraction Allergies and current medication updated:Yes EXAM: BP 110/62 Ht 5' 2.5 (1.59m) Wt 142 lb 9.6 oz (64.7kg) BMI 25.65 kg/(m2). GENERAL: pleasant, female in no apparent distress HEENT: Normocephalic, atraumatic, mucus membranes moist and no lesions NECK: Supple, full range of motion, no adenopathy and thyroid normal DERMATOLOGY: Normal, without lesions, non-icteric and non-hirsute BREAST: soft, non-tender, symmetric, no dominant mass, normal nipple-areolar complex, no lymphadenopathy, no nipple discharge and fibrocystic changes CHEST: Normal inspiratory effort ABDOMEN: soft, non-tender and no masses PELVIC: external genitalia normal, normal Bartholin's glands, urethra, [place]'s glands, no vulvar lesions, good vaginal support, physiologic discharge present, normal appearing perineal body and perianal region, cervix surgically absent BIMANUAL: no adnexal masses, non-tender and uterus surgically absent RECTOVAGINAL: deferred. NEURO: alert and oriented x3,exam grossly non-focal EXTREMITIES: normal ASSESSMENT/PLAN: 1) Health maintenance: Pap of vaginal vault done with HPV. Mammogram ordered Nutrition, exercise and routine health maintenance exams reviewed. Calcium/Vitamin D supplementation information provided. Colon cancer screening: up to date with screening 2. Hot flashes - ICD9: 782.62, ICD10: R23.2 - Taking estrace 1 mg daily but has had no improvement in hot flashes. Will try citalopram 10 mg daily. Given written information on non-hormonal ways to cope with hot flashes. - CITALOPRAM 10 MG TABLET Will call in 3-4 weeks with progress report on hot flashes. Will increase dose to 20 mg if no or minimal improvement. RTO annual exam. LASHON FLEMING CNP HPV W/GENOTYPE Collected: 07/16/2017 Status: F Source: [facility] 4:06 AM [facility] REPOSITORY TYPE CODE TESTS RESULT OUT OF REFERENCE UNITS RANGE LAB HPVT16 HPV HighRisk Negative for Type 16 HPV DNA high risk type 16 by PCR. LAB HPVT18 HPV HighRisk Negative for Type 18 HPV DNA high risk type 18 by PCR. LAB HPVHRO HPV HighRisk Negative for Other HPV DNA high risk types: 31,33,35,39,45 ,51,52,56,58,5 9,66,68 by PCR. Result Comment: This test was developed and its performance characteristics determined by [facility]'s [facility] Pathology and Laboratory Medicine [place] ([facility]). It has not been cleared or approved by the FDA. -[facility] is regulated under CLIA as qualified to perform high-complexity testing. This test is used for clinical purposes. It should not be regarded as inv estigational or for research. Performed By: #### HPVHRR #### [facility] [address] [address] ALLERGIES ALLERGIES DATE TYPE / CODE NAME / CODE REACTION SEVERITY SOURCE 04/27/2018 Drug No Known Unknown [facility] Allergy/416 Allergies/A92720 [facility] 906953(SNOM 0388(RXNORM) Repository ED CT) Drug NO KNOWN [facility] Class/91065 ALLERGIES [facility] 1003(SNOMED Repository CT) ENCOUNTERS ENCOUNTERS ADMIT/DISCHARGE ACCOUNT ADMITTING ENCOUNTER LOCATION SOURCE NUMBER CLASS 05/31/2018/05/31/19 [id number] Ambulatory [address] Repository 05/11/2018/05/12/20 [id number] Ambulatory [address] Repository 05/04/2018 [id number] Ambulatory [facility] ing:RAD Repository 04/27/2018/04/27/20 [id number] Ambulatory BMSBuilding:B [place] [address] [place].[facility] Repository 04/12/2018 [id number] Ambulatory BMSBuilding:W [facility] Repository 04/11/2018 [id number] Ambulatory BMSBuilding:[place] Repository 04/11/2018 [id number] Ruddy Stone Ambulatory BMSBuilding:[place].[facility] Repository 04/11/2018 [id number] Ruddy Stone Ambulatory BMSBuilding:[place] MS.[facility] Repository 04/11/2018 [id number] Ruddy Stone Ambulatory BMSBuilding:[place] [facility] Repository 04/11/2018/04/13/20 [id number] Ruddy Stone Ambulatory [address] ing:PCURoom: Repository [id number]: 1 04/11/2018 [id number] Ambulatory BMSBuilding:W [facility] Repository 01/06/2018/01/08/20 [id number] Ambulatory [address] Repository 11/03/2017/11/05/19 [id number] Ambulatory [address] Repository 10/06/2017/10/09/19 [id number] Ambulatory [address] Repository 09/15/2017/09/17/19 [id number] Ambulatory [address] Repository 07/24/2017 [id number] Ambulatory [facility] ing:HPRAD Repository 07/24/2017/07/25/19 [id number] Ambulatory BMSBuilding:B [place] 18 [place].[facility] Repository 07/20/2017/07/20/19 [id number] Ambulatory BMSBuilding:B [place] [address] [place] Repository 07/16/2017/07/16/19 [id number] Ambulatory [address] Repository PAYERS PAYERS ENCOUNTER GUARANTOR PAYER SUBSCRIBER SOURCE 05/04/2018 KAILA Anderson Primary KAILA L [place] [id number] W Insurance:MEDICAL SHAFERDOB: [place] [address], [place] Number: Repository [address]Gik: 330 [id number] [phone] (HP) Date:1182-34-41PV [address] [address]HU: 05/04/2018 Secondary NOT GIVENUNK [place] Insurance:SELF PAY [facility] Number: Effective Repository Date:2018-04-27 04/27/2018 KAILA L Primary KAILA L [place] [id number] W Insurance:MEDICAL SHAFERDOB: [facility] [id number], [place] Number: Repository [address]Iui: 330 [id number] [phone] () Date:8598-65-80TH [address] [address]WI: 04/27/2018 Secondary NOT GIVENUNK [place] Insurance:SELF PAY [facility] Number: Effective Repository Date:2018-04-21 04/12/2018 KAILA L Primary KAILA L [place] [id number] W Insurance:MEDICAL SHAFERDOB: [facility] [id number] Number: Repository [address]Lyz: 330 [id number] [phone] () Date:1194-78-80QI [address] [address]HD: 04/12/2018 Secondary NOT GIVENUNK [place] Insurance:SELF PAY [facility] Number: Effective Repository Date:2018-04-12 04/11/2018 KAILA L Primary KAILA L [place] [id number] W Insurance:MEDICAL SHAFERDOB: [facility] [id number] Number: Repository [address]Itz: 330 [id number] [phone] () Date:6271-27-22LX [address] [address]UN: 04/11/2018 Secondary NOT GIVENUNK [place] Insurance:SELF PAY [facility] Number: Effective Repository Date:2018-04-11 04/11/2018 KAILA L Primary KAILA L [place] [id number] W Insurance:MEDICAL SHAFERDOB: [address], [place] Number: Repository [id number]: 330 [id number] [phone] () Date:7642-69-56VX [place] [address]WP: 04/11/2018 Secondary NOT GIVENUNK [place] Insurance:SELF PAY [facility] Number: Effective Repository Date:2018-04-11 04/11/2018 KAILA L Primary KAILA L [place] [id number] W Insurance:MEDICAL SHAFERDOB: [address], [place] Number: Repository [address]Upt: 330 [id number] [phone] () Date:3223-69-00ZN [place] [address]WP: 04/11/2018 Secondary NOT GIVENUNK [place] Insurance:SELF PAY [facility] Number: Effective Repository Date:2018-04-11 04/11/2018 KAILA L Primary KAILA L [place] [id number] W Insurance:MEDICAL SHAFERDOB: [address], [place] Number: Repository [address]Gyv: 330 [id number] [phone] () Date:1729-24-66VY [address] [address]EB: 04/11/2018 Secondary NOT GIVENUNK [place] Insurance:SELF PAY [facility] Number: Effective Repository Date:2018-04-11 04/11/2018 KAILA L Primary KAILA L [place] [id number] W Insurance:MEDICAL SHAFERDOB: [address], [place] Number: Repository [address]Qhq: 330 [id number] [phone] () Date:3474-40-50BH [address] [place] [address]WQ: 04/11/2018 Secondary NOT GIVENUNK [place] Insurance:SELF PAY [facility] Number: Effective Repository Date:2018-04-11 04/11/2018 KAILA L Primary KAILA L [place] [id number] W Insurance:MEDICAL SHAFERDOB: Community [employer] [facility] [id number] Number: Repository [address]Was: (965) [id number] [phone] () Date:7334-97-53AB [address] [place] [address]AV: 04/11/2018 Secondary NOT GIVENUNK [place] Insurance:SELF PAY [facility] Number: Effective Repository Date:2018-04-11 07/24/2017 KAILA L Primary KAILA L [place] [id number] W Insurance:ANTHEMPolic SHAFERDOB: Community [employer] y Number: [id number], [place] [id number] Repository [address]Iki: Date:2062-52-43XA [phone] YVES [place] () [address]PS: 07/24/2017 Secondary NOT GIVENUNK [place] Insurance:SELF PAY [facility] Number: Effective Repository Date:2017-07-24 07/24/2017 KAILA L Primary KAILA L [place] [id number] W Insurance:ANTHEMPolic SHAFERDOB: Community [employer] y Number: [id number], [place] [id number] Repository [address]Pld: Date:7086-29-70PS [phone] [id number] ROCHE () [id number]: 07/24/2017 Secondary NOT GIVENUNK [place] Insurance:SELF PAY [facility] Number: Effective Repository Date:2017-07-24 07/20/2017 KAILA L Primary KAILA L [place] [id number] [address] Insurance:ANTHEMPolic SHAFERDOB: Community [employer] y Number: [id number] [place], [place] [id number] Repository [address]Wbq: Date:5960-56-75NI [phone], [place] -2 () [address]JB: 07/20/2017 Secondary NOT GIVENUNK [place] Insurance:SELF [facility] Effective Repository Date:2017-07-20
== END ==
PROVIDERS: Family Provider Student in an Organized Health Care Education/Training Program; PCP Student in an Organized Health Care Education/Training Program; Referring Provider Surgery; Visit Provider Surgery
DX: R10.9 Unspecified abdominal pain (principal)
CPT/HCPCS: 74249

== ENCOUNTER 2019-03-08 13:11 | Emergency (ER) | payer OTHER, SELFPAY ==
[2018-04-20 15:25] VITALS: BMI 26.5
[2019-03-08 13:17] VITALS: BP 132/76; PULSE 83; RESP 18; TEMP 36.6; O2SAT 99; BMI 27.4
[2019-03-08 13:35] VITALS: PULSE 78
--- NOTE | 2019-03-08 13:40 | EKG12_ITS ---
Test Reason : PALPS Blood Pressure : / mmHG Vent. Rate : 083 BPM Atrial Rate : 083 BPM P-R Int : 138 ms QRS Dur : 080 ms QT Int : 412 ms P-R-T Axes : 028 -02 -03 degrees QTc Int : 484 ms Normal sinus rhythm ST & T wave abnormality, consider anterior ischemia Prolonged QT Abnormal ECG Confirmed by ZAY MUSA ([id number]), editor farm journal LEXIE EASTMAN ([id number]) on 03/11/2019 10:22:42 AM Referred By: JAMES/MICHAEL Confirmed By:ZAY MUSA
--- NOTE | 2019-03-08 13:40 | RAD_ITS ---
STUDY: X-RAY CHEST REASON FOR EXAM: Female, 53 years old. Palpitations TECHNIQUE: Single AP portable view of the chest. COMPARISON: 04/11/2018 FINDINGS: EKG leads overlie the chest The lungs are clear and expanded. There is no demonstrated pleural abnormality. Normal size heart. Normal mediastinum and jose. Normal visualized pulmonary arteries. Normal visualized aortic arch and descending thoracic aorta. Normal visualized thoracic spine. Normal visualized ribs, clavicles, and shoulders. There is no demonstrated abnormality of the visualized soft tissue structures of the upper abdomen. RAD/Chest 1 View (Portable) IMPRESSION: Normal x-ray examination of the chest. Electronically Signed: Srinivasa Giles MD at 13:59 EDT , Service support ,
[2019-03-08] MEDS: Aspirin 81 MG TAB.CHEW 324 MG PO (13:56)
[2019-03-08 14:01] LABS: Absolute Lymphocyte Count 3.12 X10^3/uL (0.83-4.51); Absolute Neutrophil Count 5.1 X10^3/uL (2.0-7.7); Basophil# 0.05 X10^3/uL; Basophil% 0.6 % (0-1); Eosinophil# 0.16 X10^3/uL; Eosinophils% 1.8 % (0-5); Hematocrit 40.1 % (37-47); Hemoglobin 13.1 g/dL (12.0-15.0); Lymphocyte # 3.12 X10^3/ul (4.0); Lymphocyte % 34.6 % (19-41); Mean Corp Hgb Conc 32.7 g/dL (32-36); Mean Corpuscular Hgb 29.8 pg (27.0-32.0); Mean Corpuscular Volume 91.1 fL (81-99); Mean Platelet Vol. 9.9 fl (6.2-12.0); Monocyte# 0.52 X10^3/uL; Monocyte% 5.8 % (0-10); NRBC Flagged by Analyzer 0 % (0-5); Neutrophil # 5.13 X10^3/uL (2.7-7.7); Neutrophil % 56.9 % (47-70); Platelet Count 287 K/mm3 (150-450); RBC Distribution Width CV 13.2 % (11.6-14.6); RBC Distribution Width SD 43.8 fl (35.1-43.9)
[2019-03-08 14:11] VITALS: BP 130/93; PULSE 84; RESP 15; O2SAT 97
[2019-03-08 14:18] LABS: International Normalized Ratio 1.1; Partial Thromboplast Time 31.3 Seconds (24.1-36.2); Prothrombin Time (Protime)PT. 14.3 SECONDS (11.7-14.9)
[2019-03-08 14:25] LABS: Anion Gap 9 (5-15); BUN 11 mg/dL (7-18); BUN/Creat Ratio 14.2 RATIO (10-20); Calcium,Total 9.2 mg/dL (8.5-10.1); Chloride 103 mmol/L (98-107); Creatinine, Serum 0.78 mg/dL (0.55-1.02); EST Glomerular Filtration Rate 82 mL/min (>60); Est Glom Filt Rate - Afr Amer 99 mL/min (>60); Estimated Creatinine Clearance 68.21 ml/min; Glucose 91 mg/dL (74-106); Magnesium 2.1 mg/dL (1.6-2.6); Potassium 3.5 mmol/L (3.5-5.1); Sodium Level 136 mmol/L (136-145); Thyroid Stim Hormone (TSH) 7.58 uIU/mL (0.358-3.74)
[2019-03-08 14:27] LABS: D-Dimer Quantitative (DVT/PE) < 0.27 FEU/ug/m (0.27-0.49)
[2019-03-08 15:15] VITALS: BP 124/78; PULSE 73; RESP 15; O2SAT 99
--- NOTE | 2019-03-08 15:41 | ED.DCSUM_ITS ---
- ER Visit Summary Date of Service: 03/08/19 Chief Complaint: Palpitations History of Present Illness: The patient is a 53 F with palpitations intermittently over the past week. The start randomly. She did have one episode that started with going upstairs. Most the time, they happen at rest. They last 5 to 10 minutes. She feels her heart beating heavily. She occasionally has some mild shortness of breath and dizziness which she describes as anxiety. Denies any history of dysrhythmias. Denies any history of heart disease. She does use estrogen. She does not currently smoke. Denies any history of blood clots. Physical Examination: Afebrile and vital signs unremarkable. Alert and oriented. No acute distress. Heart regular. Lungs clear. Abdomen soft. Extremities nontender with no edema. Skin appears normal. Cranial nerves grossly intact. Normal strength and sensation grossly. Test Results: EKG shows sinus rhythm at a rate of [address] and T wave changes. QTc is 44. CBC, BMP, coags, troponin, d-dimer, TSH, magnesium al l unremarkable except for a TSH of 7.58. Emergency Department Course and Treatment: Patient was placed on a monitor. EKG was done. She had no evidence of dysrhythmia here. No further symptoms. Work- up showed elevated TSH. I do not believe this is causing her symptoms. The rest of her work-up was unremarkable. She is overall low risk and appropriate for outpatient follow-up. I advised that she will need outpatient testing. If she has continuous chest pain, shortness of breath, or any other concerning symptoms, she should return right away as we would perform further inpatient testing. Patient voiced understanding and agreement and will follow-up with her doctor. Treatment Plan: As above Disposition: Discharge Impression: 1. Palpitations This note was generated with [employer] dictation software. It may contain incorrect words, spelling, and punctuation that were not noted in review of the chart prior to signing ED Disposition - Plan for ED Patient: Referrals: Patel Nolasco DO [Primary Care Provider] -
--- NOTE | 2019-03-08 15:43 | ED.DEP ---
ED Disposition - Plan for ED Patient: Instructions: Palpitations Referrals: Patel Nolasco DO [Primary Care Provider] -
[2019-03-08 15:46] VITALS: BP 129/93; PULSE 79; RESP 14
== END 2019-03-08 15:55 | disposition home or self-care (01) ==
PROVIDERS: Emergency Provider Emergency Medicine; Family Provider Student in an Organized Health Care Education/Training Program; PCP Student in an Organized Health Care Education/Training Program
DX: R00.2 Palpitations (principal); K21.9 Gastro-esophageal reflux disease without esophagitis; F41.9 Anxiety disorder, unspecified; Z79.899 Other long term (current) drug therapy; Z87.891 Personal history of nicotine dependence
CPT/HCPCS: 71045; 80048; 83735; 84443; 84484; 85025; 85379; 85610; 85730; 93005; 99284; A4216

== ENCOUNTER → 2019-07-14 12:05 | Outpatient (CLI) | payer OTHER, SELFPAY ==
[2019-07-14 12:01] VITALS: BMI 27.4
--- NOTE | 2019-07-14 12:06 | RAD_ITS ---
STUDY: X-RAY CHEST REASON FOR EXAM: Female, 54 years old. CHEST PRESSURE, COUGH, SICK X ONE DAY TECHNIQUE: PA and lateral views of the chest. COMPARISON: Comparison is made with prior study March 08, 2019. FINDINGS: Mild increased linear markings at the lung bases suggestive of mild scarring. There is no demonstrated pleural abnormality. Normal size heart. Normal mediastinum and jose. Normal visualized pulmonary arteries. Normal visualized aortic arch and descending thoracic aorta. There are degenerative changes of the visualized thoracic spine. Normal visualized ribs, clavicles, and shoulders. There is no demonstrated abnormality of the visualized soft tissue structures of the upper abdomen. RAD/Chest PA and Lateral IMPRESSION: Findings suggest a mild degree of scarring at the lung bases. Electronically Signed: Alfonso Caputo, at 12:25 EST , Service support ,
== END ==
PROVIDERS: PCP Student in an Organized Health Care Education/Training Program; Referring Provider Physician Assistant; Visit Provider Physician Assistant
DX: R07.89 Other chest pain (principal)
CPT/HCPCS: 71046

== ENCOUNTER 2019-07-14 12:54 | Emergency (ER) | payer OTHER, SELFPAY ==
[2019-07-14 12:01] VITALS: BMI 27.4
[2019-07-14 12:55] VITALS: BP 130/72; PULSE 86; RESP 18; TEMP 36.3; O2SAT 99; BMI 26.5
[2019-07-14 13:00] VITALS: BP 130/72; PULSE 86; RESP 18; TEMP 36.3; O2SAT 99
--- NOTE | 2019-07-14 13:19 | EKG12_ITS ---
Test Reason : Blood Pressure : / mmHG Vent. Rate : 094 BPM Atrial Rate : 092 BPM P-R Int : 000 ms QRS Dur : 084 ms QT Int : 404 ms P-R-T Axes : 000 017 031 degrees QTc Int : 505 ms Sinus Rhythm Nonspecific ST and T wave abnormality Abnormal ECG Confirmed by XOCHITL AKERS, REMINGTON ([id number]), production editor SEBAS MACHUCA ([id number]) on 07/18/2019 2:17:55 PM Referred By: JOSHUA Confirmed By:JUAN LEUNG MD
[2019-07-14 13:21] VITALS: O2SAT 97
--- NOTE | 2019-07-14 13:21 | ED.DCSUM_ITS ---
History of Present Illness Chief Complaint: Chest Pain Informant: Patient Onset: Yesterday Maximum Severity: Mild Narrative: Harsh cough and chest pain since yesterday Patient reports she developed what she describes as a chest cold with a very harsh cough and intermittent chest pain. Minimal rhinorrhea no fever indicates had a flu vaccination a week ago. Today during lunch she went to a urgent care center to be evaluated for the coughing complained of the coughing with chest pain she was given sublingual nitroglycerin aspirin and she was asked to come to the hospital. She has no history of MO PE DVT or COPD occasionally has asthma, she is been eating and drinking well. She reports she had a stress test in February that was negative for any signs of heart disease, she did not experience chest pain when she exerts herself and prior to her coughing she has been in good health Past Medical History - Allergies and Home Meds Allergies/Adverse Reactions: Allergies No Known Allergies Allergy (Verified 07/14/19 12:55) Primary Care Physician: Patel Nolasco DO [Primary Care Provider] - Past Medical History: - Surgical History: no surgical history Smoking Status: Former smoker Review of Systems ROS: - Denies as above General: Denies: Chills, Fever, Sweats Eyes: Denies: Visual changes - bilaterally, Diplopia ENT: Denies: Rhinorrhea, Sore throat Cardiovascular: Reports: Chest pain. Denies: Palpitations Respiratory: Reports: Cough. Denies: Dyspnea, Dyspnea on exertion Gastrointestinal: Denies: Abdominal pain, Nausea, Vomiting, Diarrhea, Melena, Hematochezia Genitourinary: Denies: Dysuria, Hematuria, Frequency Musculoskeletal: Denies: Back pain, Extremity Pain Skin: Denies: Rash, Wounds Neurological: Denies: Headache, Weakness, Numbness Physical Exam Vital Signs/Narrative: Vital Signs Temp Pulse Resp BP Pulse Ox 07/14/19 13:00 97.4 F L 86 18 130/72 H 99 07/14/19 12:55 97.4 F L 86 18 130/72 H 99 General: Well nourished, Well developed, No Acute Distress Head: Normocephalic, Atraumatic Eyes: Perrl, EOMI ENT: Moist mucous membranes, No rhinorrhea Neck: Supple, Nontender Cardiovascular: Regular rate, Regular rhythm, No murmurs Respiratory: No distress, CTA bilaterally, Chest nontender Abdomen: Soft, Nontender, Nondistended, Normal bowel sounds Back: Nontender, Normal Inspection Extremities: Nontender, No edema Skin: Normal color, No rash Neurological: Alert, Oriented x3, Cranial nerves II-XII grossly intact, Normal Strength, Normal Sensation Psychological: Normal affect, Normal Mood Diagnostic/Tx/Re-eval - Medical Decision Making She has a very harsh dry cough here her lungs heart exam abdominal exam upper and lower extremities unremarkable at this time given differential her age sc reening labs EKG aerosols ED evaluation, she does have a cardiac stress echo done from last year or so that was unremarkable see that report Patient's EKG shows sinus rhythm, no acute injury pattern available, labs are unremarkable chest x-ray unremarkable at the urgent care center, she is resting company in the bed, we discussed inpatient versus outpatient management, understands the differential,, she does not wish to be admitted she wants to go home prefers outpatient management Started on Proventil Flonase Mucinex Naprosyn and she will see her outpatient providers and return for change in symptoms Home stable declined admission Final impression URI with harsh cough and stabbing chest pain ED Disposition - Plan for ED Patient: Diagnosis: Acute bronchitis Instructions: Pleurisy, URI, Viral w/ Wheezing (Adult) Prescriptions: Fluticasone Propionate [Flonase Allergy Relief] 15.8 ml NS BID #1 spray.susp Prescription Printed Naproxen [Naprosyn] 500 mg PO BID PRN #20 tab Prescription Printed Albuterol Inhaler [Ventolin Hfa] 1 - 2 puff INHALATION Q4H PRN PRN #1 inhaler PRN Reason: Wheezing Prescription Printed Referrals: Patel Nolasco DO [Primary Care Provider] -
[2019-07-14] MEDS: Ondansetron 4 MG/2 ML Vial IV (13:25)
[2019-07-14] MEDS: Morphine 4 MG/ML Syringe IV (13:25)
[2019-07-14 13:32] VITALS: PULSE 101; RESP 20
[2019-07-14] MEDS: Ipratropium/Albuterol Sulfate 3 ML AMPUL.NEB INHALATION (13:34)
[2019-07-14 13:41] LABS: Absolute Lymphocyte Count 1.04 X10^3/uL (0.83-4.51); Absolute Neutrophil Count 8.1 X10^3/uL (2.0-7.7); Basophil# 0.05 X10^3/uL; Basophil% 0.5 % (0-1); Eosinophil# 0.12 X10^3/uL; Eosinophils% 1.2 % (0-5); Hematocrit 39.3 % (37-47); Hemoglobin 12.8 g/dL (12.0-15.0); Lymphocyte # 1.04 X10^3/ul (4.0); Lymphocyte % 10.3 % (19-41); Mean Corp Hgb Conc 32.6 g/dL (32-36); Mean Corpuscular Hgb 29.6 pg (27.0-32.0); Mean Corpuscular Volume 90.8 fL (81-99); Mean Platelet Vol. 9.9 fl (6.2-12.0); Monocyte# 0.74 X10^3/uL; Monocyte% 7.3 % (0-10); NRBC Flagged by Analyzer 0 % (0-5); Neutrophil # 8.12 X10^3/uL (2.7-7.7); Neutrophil % 80.3 % (47-70); Platelet Count 297 K/mm3 (150-450); RBC Distribution Width SD 42.6 fl (35.1-43.9); Red Blood Count 4.33 M/mm3 (4.2-5.4); White Blood Count 10.1 K/mm3 (4.4-11.0)
[2019-07-14 13:54] LABS: Anion Gap 6 (5-15); BUN 12 mg/dL (7-18); BUN/Creat Ratio 14.2 RATIO (10-20); Calcium,Total 9.4 mg/dL (8.5-10.1); Chloride 106 mmol/L (98-107); Creatinine, Serum 0.85 mg/dL (0.55-1.02); EST Glomerular Filtration Rate 74 mL/min (>60); Est Glom Filt Rate - Afr Amer 90 mL/min (>60); Estimated Creatinine Clearance 61.86 ml/min; Glucose 99 mg/dL (74-106); Potassium 3.6 mmol/L (3.5-5.1); Sodium Level 138 mmol/L (136-145)
[2019-07-14] MEDS: 0.9% Normal Saline 1,000 ML 150 ML IV (14:00)
--- NOTE | 2019-07-14 14:54 | EKG12_ITS ---
Test Reason : REPEAT Blood Pressure : / mmHG Vent. Rate : 081 BPM Atrial Rate : 081 BPM P-R Int : 158 ms QRS Dur : 094 ms QT Int : 398 ms P-R-T Axes : 056 017 010 degrees QTc Int : 462 ms Normal sinus rhythm ST & T wave abnormality, consider anterior ischemia Prolonged QT Abnormal ECG Confirmed by XOCHITL AKERS, REMINGTON ([id number]), telegraph editor SEBAS MACHUCA ([id number]) on 07/18/2019 2:18:10 PM Referred By: Confirmed By:JUAN LEUNG MD
[2019-07-14 15:44] VITALS: BP 98/62; PULSE 84; PULSE 86; RESP 17; TEMP 37; O2SAT 100; O2SAT 98
== END 2019-07-14 16:02 | disposition home or self-care (01) ==
LOC: ED 13:56
PROVIDERS: Emergency Provider Emergency Medicine; PCP Student in an Organized Health Care Education/Training Program
DX: J20.9 Acute bronchitis, unspecified (principal); Z79.899 Other long term (current) drug therapy; Z87.891 Personal history of nicotine dependence
CPT/HCPCS: 80048; 84484; 85025; 93005; 94640; 96361; 96374; 96375; 99285; J7030; A4216; J2405

== ENCOUNTER 2022-03-19 11:43 | Emergency (ER) | payer OTHER, SELFPAY ==
[2022-03-19 11:44] VITALS: BP 149/95; PULSE 80; RESP 20; TEMP 36.7; O2SAT 100; BMI 29.2
--- NOTE | 2022-03-19 11:47 | EKG12_ITS ---
Test Reason : SOB Blood Pressure : / mmHG Vent. Rate : 073 BPM Atrial Rate : 073 BPM P-R Int : 138 ms QRS Dur : 080 ms QT Int : 396 ms P-R-T Axes : 025 -03 -15 degrees QTc Int : 436 ms Normal sinus rhythm Nonspecific ST and T wave abnormality Abnormal ECG Confirmed by XOCHITL AKERS, REMINGTON ([id number]), online editor SEBAS MACHUCA ([id number]) on 03/21/2022 2:07:17 P M Referred By: BARBIE/KELLY Confirmed By:JUAN LEUNG MD
[2022-03-19 12:26] VITALS: RESP 24; O2SAT 98
[2022-03-19 12:42] LABS: Absolute Lymphocyte Count 2.57 X10^3/uL (0.83-4.51); Basophil# 0.05 X10^3/uL; Basophil% 0.5 % (0-1); Eosinophil# 0.07 X10^3/uL; Eosinophils% 0.8 % (0-5); Hematocrit 37.5 % (37-47); Hemoglobin 12.3 g/dL (12.0-15.0); Lymphocyte # 2.57 X10^3/ul (0.83-4.51); Lymphocyte % 27.8 % (19-41); Mean Corp Hgb Conc 32.8 g/dL (32-36); Mean Corpuscular Hgb 29.8 pg (27.0-32.0); Mean Corpuscular Volume 90.8 fL (81-99); Mean Platelet Vol. 9.7 fl (6.2-12.0); Monocyte# 0.59 X10^3/uL; Monocyte% 6.4 % (0-10); NRBC Flagged by Analyzer 0 % (0-5); Neutrophil # 5.96 X10^3/uL (2.7-7.7); Neutrophil % 64.3 % (47-70); Platelet Count 310 K/mm3 (150-450); RBC Distribution Width CV 13.3 % (11.6-14.6); RBC Distribution Width SD 44.1 fl (35.1-43.9); Red Blood Count 4.13 M/mm3 (4.2-5.4); White Blood Count 9.3 K/mm3 (4.4-11.0)
[2022-03-19 12:51] LABS: Anion Gap 9 (5-15); BUN 11 mg/dL (7-18); BUN/Creat Ratio 14.2 RATIO (10-20); Calcium,Total 9.3 mg/dL (8.5-10.1); Chloride 105 mmol/L (98-107); Creatinine, Serum 0.77 mg/dL (0.55-1.02); EST Glomerular Filtration Rate 82 mL/min (>60); Est Glom Filt Rate - Afr Amer 99 mL/min (>60); Estimated Creatinine Clearance 66.68 ml/min; Glucose 98 mg/dL (74-106); Potassium 3.7 mmol/L (3.5-5.1); Sodium Level 139 mmol/L (136-145)
[2022-03-19 13:43] VITALS: PULSE 74; RESP 12; O2SAT 93
--- NOTE | 2022-03-19 13:51 | RAD_ITS ---
STUDY: X-RAY CHEST REASON FOR EXAM: Female, 56 years old. Sob TECHNIQUE: Single AP portable view of the chest. COMPARISON: Comparison is made with prior study 07/14/2019. FINDINGS: EKG electrodes are seen. Hyperinflation. The lungs are clear. There is no demonstrated pleural abnormality. Normal size heart. Normal mediastinum and jose. Normal visualized pulmonary arteries. There is atherosclerotic calcification of the aortic arch with tortuosity. There are degenerative changes of the visualized thoracic spine. Normal visualized ribs, clavicles, and shoulders. There is no demonstrated abnormality of the visualized soft tissue structures of the upper abdomen. RAD/Chest 1 View (Portable) IMPRESSION: Hyperinflation. The lungs are clear. Electronically Signed: Alfonso Caputo MD at 14:05 EDT ,
[2022-03-19 14:14] LABS: D-Dimer Quantitative (DVT/PE) 0.45 FEU/ug/m (0.27-0.49)
--- NOTE | 2022-03-19 14:35 | ED.VIS.DYS ---
HPI History of Present Illness Chief Complaint: Shortness of Breath Informant: patient Onset/Context/Timing Onset: Weeks (2) Context: gradual and onset Timing: Continuous Quality: Positive for Dyspnea on exertion and Orthopnea Current Severity: Moderate Maximum Severity: Severe Worsened by: Exertion, Lying flat and Coughing Relieved by: Rest Associated Symptoms cough Chest Pain: Positive for None Narrative Narrative: Patient is relatively healthy 56-year-old no history of heart or lung pathology, she had COVID that started about 3 weeks ago, she states it was relatively mild. She had runny nose, sore throat, minor cough, but no dyspnea. A week later, she was feeling better except she started getting dyspneic and getting a worsening cough, and ended up turning into a chest cough, nonproductive, she denies any fevers or chills, for the past 2 or 3 days she has had some swelling in both of her ankles simultaneously without any pain in her calves or otherwise, she has had orthopnea the whole time. She saw her PCP this morning for all of this and was sent here to the emergency department. She is a former smoker. [facility] Medical History Acute bronchitis Anemia Barretts esophagus Cervical cancer Chest congestion Chest pain Gastroenteritis Maxillary sinusitis, acute Mild chronic gastritis Tobacco use disorder Home Medications albuterol sulfate 90 mcg/actuation aerosol inhaler 1 - 2 puff inhalation Q4H PRN PRN Wheezing ##1 07/14/19 [Rx Last Taken Unknown] estradiol 1 mg tablet 1 mg PO DAILY 07/14/19 [History Last Taken Unknown] fluticasone propionate 50 mcg/actuation nasal spray,suspension 15.8 ml NS BID ##1 07/14/19 [Rx Last Taken Unknown] gabapentin 300 mg capsule 300 mg PO QHS 07/14/19 [History Last Taken Unknown] levothyroxine 50 mcg tablet 50 mcg PO DAILY 07/14/19 [History Last Taken Unknown] naproxen 500 mg tablet 500 mg PO BID PRN #20 tabs 07/14/19 [Rx Last Taken Unknown] pantoprazole 40 mg tablet,delayed release 40 mg PO DAILY 07/14/19 [History Last Taken Unknown] albuterol sulfate 90 mcg/actuation aerosol inhaler (Ventolin HFA) 1 - 2 puff inhalation Q4H PRN PRN Wheezing ##1 03/19/22 [Rx Last Taken Unknown] benzonatate 100 mg capsule 200 mg PO TID PRN PRN Cough #20 CAPSULES 03/19/22 [Rx Last Taken Unknown] levofloxacin 500 mg tablet 500 mg PO DAILY #7 tabs 03/19/22 [Rx Last Taken Unknown] Allergy/AdvReac Type Severity Reaction Status Date / Time No Known Allergies Allergy Verified 03/19/22 11:44 Family History Other Diabetes Heart disease Surgical History H/O knee surgery H/O: hysterectomy H/O: hysterectomy History of esophagogastroduodenoscopy (EGD) (~04/13/18) Social History Smoking Status: Former smoker alcohol intake: never ROS ROS ED Constitutional Constitutional ED: Denies chills or fever(s) Eyes Eyes: Denies change in vision or diplopia ENT ENT ED: Denies ear pain, rhinorrhea or sore throat Cardiovascular Cardiovascular: Reports leg edema and orthopnea; Denies chest pain or palpitations Respiratory/Chest Respiratory/Chest: Reports cough, dyspnea, dyspnea on exertion and orthopnea; Denies sputum or wheezing Gastrointestinal Gastrointestinal: Denies abdominal pain, diarrhea, nausea or vomiting Genitourinary Genitourinary ED: Denies dysuria or hematuria Musculoskeletal Musculoskeletal: Denies back pain or neck pain Integumentary Denies abscess or rash Neurologic Neurologic: Denies headache(s), paresthesias or weakness Psychiatric Psychiatric: Denies anxiety or suicidal thoughts EXAM Physical Exam Const Vital Signs: 03/19/22 11:44 03/19/22 12:26 03/19/22 12:26 Temperature 98.0 F Temperature Source Temporal Pulse Rate 80 Respiratory Rate 20 H 24 H Respiratory Effort Respiratory Depth Respiratory Pattern Blood Pressure 149/95 H Blood Pressure Mean 113 Pulse Ox 100 98 Oxygen Delivery Method Room Air Room Air Room Air 03/19/22 12:26 03/19/22 13:43 03/19/22 14:44 Temperature Temperature Source Pulse Rate 74 73 Respiratory Rate 12 12 Respiratory Effort Short of Breath Respiratory Depth Shallow Respiratory Pattern Tachypnea Normal Blood Pressure Blood Pressure Mean Pulse Ox 93 Oxygen Delivery Method Room Air Room Air 03/19/22 15:00 Temperature Temperature Source Pulse Rate 77 Respiratory Rate 12 Respiratory Effort Respiratory Depth Respiratory Pattern Blood Pressure Blood Pressure Mean Pulse Ox 92 Oxygen Delivery Method Room Air Positive well nourished and well developed General Appearance ED: well developed and NAD HEENT Reports moist mucous membranes normocephalic and atraumatic Eyes PERRL and EOMs intact bilaterally Neck full ROM and supple Resp Resp Narrative: Tachypneic but no distress. Able to converse in full sentences. Possibly some end expiratory wheezes in the bases, possibly some mild rhonchi; each time the patient takes a deep breath she has terrible bronchospasm sounds very bronchitic. This limits the exam. Cardio regular rate, regular rhythm and no murmurs GI non-tender and non-distended Auscultation: normoactive bowel sounds Palpation: soft Back/Spine no CVA tenderness General Back: other FROM Extremity normal to inspection and no calf tenderness General Extremety ED: Yes edema; Negative for pulses abnormal or tenderness General Extremity: edema bilateral lower extremity (Patient states swelling is down right now compared to what it was before) Details: trace; Negative for pulses abnormal Neuro oriented x3, CN's II-XII intact bilaterally and no sensory deficits noted Sensorium / Orientation: awake and alert Motor Exam: strength 5/5 throughout Skin no rashes or lesions noted and no wounds MDM MDM MDM Narrative Medical decision making narrative: Patient sounds like she has bronchitis clinically. I did do a D-dimer and a BNP and both were normal. She was told by someone prior to coming here that she may have a PE, clinically this is inconsistent with that, so is her bilateral lower extremity edema that is really barely there objectively anyway, and her D-dimer is negative and I think that is ruled out adequately. With her x-ray being normal, labs being normal, and the sound in pulmonary now, I think supportive care is advised. I gave her a duo nebulizer treatment, it really helped. She has had the symptoms for 2 weeks and getting worse not better, so I think it would be reasonable to try coverage for atypicals with an antibiotic as well as a prescription for albuterol inhaler. I see no reason to put her on steroids at this time, which could make the leg edema worse and confuse the clinical picture. She is comfortable with that plan so we will discharge her with those prescriptions. Her vital signs are excellent with pulse ox 97% on room air at this time. Lab Data Attestation: I reviewed the patient's lab results. Labs: Laboratory Results - last 24 hr 03/19/22 03/19/22 03/19/22 12:24 12:24 12:24 WBC 9.3 RBC 4.13 L Hgb 12.3 Hct 37.5 MCV 90.8 MCH 29.8 MCHC 32.8 RDW Std Deviation 44.1 H RDW Coeff of Vahe 13.3 Plt Count 310 MPV 9.7 Immature Gran % (Auto) 0.200 Neut % (Auto) 64.3 Lymph % (Auto) 27.8 Alpine % (Auto) 6.4 Eos % (Auto) 0.8 Baso % (Auto) 0.5 Absolute Neuts (auto) 6.0 Absolute Lymphs (auto) 2.57 Nucleated RBC % 0 D-Dimer Quant (PE/DVT) Sodium 139 Potassium 3.7 Chloride 105 Carbon Dioxide 25.0 Anion Gap 9 BUN 11 Creatinine 0.77 Estim Creat Clear Calc 66.68 Est GFR (MDRD) Af Amer 99 Est GFR (MDRD) Non-Af 82 BUN/Creatinine Ratio 14.2 Glucose 98 Calcium 9.3 B-Natriuretic Peptide 22.6 03/19/22 13:54 WBC RBC Hgb Hct MCV MCH MCHC RDW Std Deviation RDW Coeff of Vahe Plt Count MPV Immature Gran % (Auto) Neut % (Auto) Lymph % (Auto) Alpine % (Auto) Eos % (Auto) Baso % (Auto) Absolute Neuts (auto) Absolute Lymphs (auto) Nucleated RBC % D-Dimer Quant (PE/DVT) 0.45 Sodium Potassium Chloride Carbon Dioxide Anion Gap BUN Creatinine Estim Creat Clear Calc Est GFR (MDRD) Af Amer Est GFR (MDRD) Non-Af BUN/Creatinine Ratio Glucose Calcium B-Natriuretic Peptide Radiography Diagnostic Testing: Clinical Impression(s) from Imaging Studies Chest X-Ray 03/19/22 13:51 IMPRESSION: Hyperinflation. The lungs are clear. Electronically Signed: Alfonso Caputo MD at 14:05 EDT , Rhythm Strip Rhythm Strip: Sinus Rhythm Rate: 72 Ectopy: None EKG Initial EKG: Attestation: I personally reviewed and interpreted this EKG as follows: Interpretation: Sinus Rhythm, No Acute Injury Pattern and Non-Specific ST Changes (diffusely) Discharge Plan Triage Chief Complaint: Shortness of Breath ED Provider: Anil Clark Dx/Rx/DC Orders Clinical Impression: Acute bronchitis with wheezing, Bilateral leg edema Instructions: Acute Bronchitis, ED Peripheral Edema, Bilateral Prescriptions: New benzonatate [benzonatate] 100 mg capsule 200 mg PO TID PRN PRN (Reason: Cough) Qty: 20 0RF levofloxacin [levofloxacin] 500 mg tablet 500 mg PO DAILY Qty: 7 0RF albuterol sulfate [Ventolin HFA] 90 mcg/actuation HFA aerosol inhaler 1 - 2 puff inhalation Q4H PRN PRN (Reason: Wheezing) Qty: 1 0RF No Action estradiol 1 mg tablet 1 mg PO DAILY Label Comments: take 1 tablet by mouth once daily levothyroxine 50 MCG tablet 50 mcg PO DAILY pantoprazole 40 MG tablet 40 mg PO DAILY gabapentin 300 MG capsule 300 mg PO QHS albuterol sulfate 1 INHALER inhaler 1 - 2 puff inhalation Q4H PRN PRN (Reason: Wheezing) Qty: 1 0RF naproxen 500 MG tablet 500 mg PO BID PRN Qty: 20 0RF fluticasone propionate 9.9 ML spray,suspension 15.8 ml NS BID Qty: 1 0RF Primary Care Provider: Patel Nolasco Referrals: Patel Nolasco, DO [Primary Care Provider] - 1 Week if not improving Disposition Disposition: Home, Self Care
[2022-03-19 14:44] VITALS: PULSE 73; RESP 12
[2022-03-19] MEDS: Ipratropium/Albuterol Sulfate 3 ML AMPUL.NEB INHALATION (14:44)
[2022-03-19 15:00] VITALS: PULSE 77; RESP 12; O2SAT 92
[2022-03-19 15:09] LABS: BNP,B-Type NATRIURETIC PEPTIDE 22.6 pg/mL (0-100)
[2022-03-19 16:51] VITALS: BP 153/86; RESP 16; O2SAT 98
== END 2022-03-19 16:52 | disposition home or self-care (01) ==
PROVIDERS: Emergency Provider Emergency Medicine; PCP Student in an Organized Health Care Education/Training Program; Visit Provider Emergency Medicine
DX: J20.9 Acute bronchitis, unspecified (principal); R60.0 Localized edema; R06.01 Orthopnea; Z87.891 Personal history of nicotine dependence
CPT/HCPCS: 71045; 80048; 83880; 85025; 85379; 93005; 94640; 94760; 99282; A4216

== ENCOUNTER 2022-08-18 09:23 | Emergency (ER) | payer OTHER, SELFPAY ==
[2022-08-18 09:23] VITALS: BP 108/82; PULSE 102; RESP 16; TEMP 36.9; O2SAT 97; BMI 27.4
--- NOTE | 2022-08-18 09:44 | EX.ED.VIS.UR ---
HPI HPI - URI History of Present Illness Chief Complaint: Cough Informant: patient Onset/Context/Timing Onset: Days Context: Gradual Onset Timing: Continuous Current Severity: Mild Maximum Severity: Mild Associated Symptoms Associated Symptoms: Positive for Nasal Congestion, Shortness of Breath and Nonproductive cough; Negative for Vomiting, Chest Pain, Hemoptysis or Productive Cough Narrative Narrative: 57-year-old female history of mild COPD. Developed a cough similar to when she had a month ago. Denies any fever positive chills. States is nonproductive cough. No chest pain or hemoptysis. Feels short of breath with it. Wheezing. Patient quit smoking about 5 years ago. She denies any leg pain or swelling. She was seen in the emergency department for similar episode about a month ago. Followed up with city treasurer at [facility] and did pulmonary function test showing mild emphysema. Prior similar symptoms: Yes Recent Illness/Hospitalization: No ROS ROS ED ROS Narrative Cough. Shortness of breath. Wheezing. Review of Systems ROS Unobtainable: Denies due to encephalopathy Constitutional Constitutional ED: Reports chills; Denies fever(s) Eyes Eyes: Denies blurry vision ENT ENT ED: Denies ear pain or rhinorrhea Cardiovascular Cardiovascular: Denies chest pain Respiratory/Chest Respiratory/Chest: Reports cough, dyspnea and other; Denies sputum Gastrointestinal Gastrointestinal: Denies abdominal pain Genitourinary Genitourinary ED: Denies dysuria or hematuria Musculoskeletal Musculoskeletal: Denies arthralgias or back pain Integumentary Denies abscess or Abrasions Neurologic Neurologic: Denies headache(s) Psychiatric Psychiatric: Denies anxiety or depression Endocrine Endocrinology: Denies cold intolerance Hematologic/Lymphatic Hematologic/Lymphatic: Denies easy bleeding Allergic/Immunologic Allergic/Immunologic ED: Denies mouth swelling or tongue swelling [facility] Medical History Acute bronchitis Anemia Barretts esophagus Cervical cancer Chest congestion Chest pain Gastroenteritis Maxillary sinusitis, acute Mild chronic gastritis Tobacco use disorder Home Medications albuterol sulfate 90 mcg/actuation aerosol inhaler 1 - 2 puff inhalation Q4H PRN PRN Wheezing ##1 07/14/19 [Rx Last Taken Unknown] estradiol 1 mg tablet 1 mg PO DAILY 07/14/19 [History Last Taken Unknown] fluticasone propionate 50 mcg/actuation nasal spray,suspension 15.8 ml NS BID ##1 07/14/19 [Rx Last Taken Unknown] gabapentin 300 mg capsule 300 mg PO QHS 07/14/19 [History Last Taken Unknown] levothyroxine 50 mcg tablet 50 mcg PO DAILY 07/14/19 [History Last Taken Unknown] naproxen 500 mg tablet 500 mg PO BID PRN #20 tabs 07/14/19 [Rx Last Taken Unknown] pantoprazole 40 mg tablet,delayed release 40 mg PO DAILY 07/14/19 [History Last Taken Unknown] albuterol sulfate 90 mcg/actuation aerosol inhaler (Ventolin HFA) 1 - 2 puff inhalation Q4H PRN PRN Wheezing ##1 03/19/22 [Rx Last Taken Unknown] benzonatate 100 mg capsule 200 mg PO TID PRN PRN Cough #20 CAPSULES 03/19/22 [Rx Last Taken Unknown] levofloxacin 500 mg tablet 500 mg PO DAILY #7 tabs 03/19/22 [Rx Last Taken Unknown] azithromycin 250 mg tablet (Zithromax Z-Ze) See Rx Instructions PO .COMPLEX #6 tabs 08/18/22 [Rx Last Taken Unknown] prednisone 20 mg tablet 40 mg PO DAILY 7 days #14 tabs 08/18/22 [Rx Last Taken Unknown] Allergy/AdvReac Type Severity Reaction Status Date / Time pseudoephedrine AdvReac Other Verified 08/18/22 09:25 Family History Other Diabetes Heart disease Surgical History H/O knee surgery H/O: hysterectomy H/O: hysterectomy History of esophagogastroduodenoscopy (EGD) (~04/13/18) Social History Smoking Status: Current every day smoker tobacco type: cigarettes alcohol intake: never EXAM Physical Exam Narrative Exam Narrative: 57-year-old female no acute distress. Vital signs stable afebrile. Patient sitting upright in bed. at bedside. H EENT exam unremarkable. Neck nontender. Lungs expiratory wheezes throughout. No rales or rhonchi. Equal symmetrical. Deep cough. Heart regular rhythm no murmur. Abdomen soft nontender. Moving all 4 extremities. Calves nontender no edema or cords. Otherwise exam unremarkable. Const Vital Signs: 08/18/22 09:23 08/18/22 10:16 08/18/22 10:12 Temperature 98.4 F Temperature Source Temporal Pulse Rate 102 H 77 Respiratory Rate 16 20 H Respiratory Effort Short of Breath Respiratory Pattern Tachypnea Blood Pressure 108/82 H Blood Pressure Mean 90 Pulse Ox 97 Oxygen Delivery Method Room Air Room Air Positive well nourished and well developed; Negative for obese, cachectic or contractures General Appearance ED: well developed; Negative for cachectic, contractures, cyanotic, diaphoretic, NAD or pallor Nutritional Appearance: Negative for cachectic or obese HEENT Reports moist mucous membranes; Denies dry mucous membranes normocephalic and atraumatic Face and Sinus: Negative for sinus tenderness Mouth ED: No dry mucous membranes Mouth: No dry mucous membranes Teeth and Gingiva: Negative for caries Throat: posterior oropharynx normal Eyes PERRL and EOMs intact bilaterally General Eye ED: Negative for pale conjunctiva or scleral icterus Neck no lymphadenopathy, supple, no meningeal signs and no JVD General: Negative for anterior neck swelling or lymphadenopathy Resp normal respiratory effort and No clear to auscultation bilaterally Effort and Inspection: Negative for retractions Auscultation: wheezes; Negative for rales, rhonchi or diminished lung sounds Cardio S1 normal heart sound, S2 normal heart sound and no murmurs Rate: regular rate; Negative for bradycardia Rhythm: regular rhythm GI non-tender, non-distended and no masses Inspection: Negative for abdominal distention Auscultation: normoactive bowel sounds Palpation: soft; Negative for tender or guarding Back/Spine no CVA tenderness; Negative for normal ROM General Back: Negative for CVA tenderness Cervical Spine: Negative for cervical spine tenderness Thoracic Spine / Upper Back: Negative for thoracic spinal tenderness Lumbar Spine / Lower Back: Negative for lumbar spinal tenderness Sacrum: Negative for tenderness Extremity normal to inspection and full ROM General Extremety ED: Negative for cyanosis or tenderness General Extremity: Negative for cyanosis Neuro oriented x3 and CN's II-XII intact bilaterally Sensorium / Orientation: alert, oriented to person, oriented to place and oriented to time; Negative for orientation impaired or lethargic Motor Exam: strength 5/5 throughout Psych mental status grossly normal Appearance: Negative for other Attitude: No agitated Mood & Affect: Negative for depressed, anxious or tearful Skin General Skin Exam: Negative for jaundice or pallor Lesions: no lesions Rashes: no rashes Trauma: Negative for abrasion MDM MDM MDM Narrative Medical decision making narrative: 57-year-old female history of mild COPD most likely has bronchitis rule out pneumonia. She is exacerbation of her COPD. She will be treated with prednisone 60 mg p.o. DuoNeb and albuterol aerosols. Chest x-ray and labs. Repeat exam at 1040 patient feels and looks much better. Her shortness of breath is much improved. She still has a few scattered wheezes. We went over her chest x-ray and no signs of pneumonia. Also normal lab work. She be discharged home on prednisone 40 mg a day for 1 week. I will give her a prescription for Zithromax but only start that if she is feeling worse or starts having a lot of sputum. At this time I suspect this is a viral bronchitis and is caused a flare of her COPD. She has an inhaler at home. History & Record Review Discussion w/independent historian: Patient and Family Lab Data Attestation: I reviewed the patient's lab results. Lab results narrative: CBC unremarkable. White count 6.9. H&H 12.7 and 38. Platelets 242. Electrolytes show a gap of 5 normal BUN and creatinine. Glucose 92. Chest x-ray chronic changes no signs of pneumonia. Labs: Laboratory Results - last 24 hr 08/18/22 08/18/22 10:05 10:05 WBC 6.9 RBC 4.25 Hgb 12.7 Hct 38.5 MCV 90.6 MCH 29.9 MCHC 33.0 RDW Std Deviation 46.2 H RDW Coeff of Vahe 13.8 Plt Count 242 MPV 9.6 Immature Gran % (Auto) 0.300 Neut % (Auto) 69.2 Lymph % (Auto) 19.0 [place] % (Auto) 9.3 Eos % (Auto) 1.6 Baso % (Auto) 0.6 Absolute Neuts (auto) 4.8 Absolute Lymphs (auto) 1.31 Nucleated RBC % 0 Sodium 139 Potassium 3.8 Chloride 109 H Carbon Dioxide 25.0 Anion Gap 5 BUN 9 Creatinine 0.75 Estim Creat Clear Calc 67.63 Est GFR (MDRD) Af Amer 102 Est GFR (MDRD) Non-Af 85 BUN/Creatinine Ratio 12.0 Glucose 92 Calcium 8.8 Radiography Chest X-Ray - ED: 2 View, Read by ED Physician, Normal, Heart, Lungs, Mediastinum, Bony Structures, No Acute Disease and No Infiltrates Diagnostic Testing: Chest x-ray, shows hyperinflated lungs consistent with COPD but no pneumonia, infiltrate nor fluid. No pneumothorax. Interpreted by myself. 2 views AP and lateral. Discharge Plan Triage Chief Complaint: Cough ED Provider: Rohit Patterson Dx/Rx/DC Orders Clinical Impression: Bronchitis, COPD exacerbation Instructions: ED Bronchitis, No Antibiotic (Adult), ED COPD Flare Prescriptions: New prednisone 20 mg tablet 40 mg PO DAILY 7 Days Qty: 14 0RF azithromycin [Zithromax Z-Ze] 250 mg tablet See Rx Instructions .ROUTE .COMPLEX Qty: 6 0RF Rx Instructions: For 250 mg dose pack: take 500 mg today (day 1), then 250 mg for 4 days (days 2-5) Only start the antibiotic if you develop a productive cough of yellow, dark, mantilla or green sputum. No Action estradiol 1 mg tablet 1 mg PO DAILY Label Comments: take 1 tablet by mouth once daily levothyroxine 50 MCG tablet 50 mcg PO DAILY pantoprazole 40 MG tablet 40 mg PO DAILY gabapentin 300 MG capsule 300 mg PO QHS albuterol sulfate 1 INHALER inhaler 1 - 2 puff inhalation Q4H PRN PRN (Reason: Wheezing) Qty: 1 0RF naproxen 500 MG tablet 500 mg PO BID PRN Qty: 20 0RF fluticasone propionate 9.9 ML spray,suspension 15.8 ml NS BID Qty: 1 0RF benzonatate [benzonatate] 100 mg capsule 200 mg PO TID PRN PRN (Reason: Cough) Qty: 20 0RF levofloxacin [levofloxacin] 500 mg tablet 500 mg PO DAILY Qty: 7 0RF albuterol sulfate [Ventolin HFA] 90 mcg/actuation HFA aerosol inhaler 1 - 2 puff inhalation Q4H PRN PRN (Reason: Wheezing) Qty: 1 0RF Primary Care Provider: Patel Nolasco Referrals: Patel Nolasco, [Primary Care Provider] - 1 Week if not improving Activity Restrictions/Additional Instructions: Prednisone 40 mg a day starting tomorrow. You got your first dose here. This will decrease inflammation in your lungs help with your breathing and decrease your wheezing. Your home inhaler 2 puffs every 2 hours as needed. Only get the antibiotic filled if you are not improving or develop a productive cough of colored sputum. Follow-up with your doctor if not getting better or return if worse. Disposition Disposition: Home, Self Care
[2022-08-18 10:12] VITALS: PULSE 77; RESP 20
[2022-08-18] MEDS: predniSONE 20 MG Tablet 60 MG PO (10:12)
[2022-08-18] MEDS: Albuterol 2.5 MG/3 ML VIAL.NEB. INHALATION (10:13)
[2022-08-18 10:16] VITALS: O2SAT 96
[2022-08-18] MEDS: Ipratropium/Albuterol Sulfate 3 ML AMPUL.NEB INHALATION (10:17)
[2022-08-18 10:18] LABS: Absolute Lymphocyte Count 1.31 X10^3/uL (0.83-4.51); Absolute Neutrophil Count 4.8 X10^3/uL (2.0-7.7); Basophil# 0.04 X10^3/uL; Basophil% 0.6 % (0-1); Eosinophil# 0.11 X10^3/uL; Eosinophils% 1.6 % (0-5); Hematocrit 38.5 % (37-47); Hemoglobin 12.7 g/dL (12.0-15.0); Lymphocyte # 1.31 X10^3/ul (0.83-4.51); Mean Corpuscular Hgb 29.9 pg (27.0-32.0); Mean Corpuscular Volume 90.6 fL (81-99); Mean Platelet Vol. 9.6 fl (6.2-12.0); Monocyte# 0.64 X10^3/uL; Monocyte% 9.3 % (0-10); NRBC Flagged by Analyzer 0 % (0-5); Neutrophil # 4.78 X10^3/uL (2.7-7.7); Neutrophil % 69.2 % (47-70); Platelet Count 242 K/mm3 (150-450); RBC Distribution Width CV 13.8 % (11.6-14.6); RBC Distribution Width SD 46.2 fl (35.1-43.9); Red Blood Count 4.25 M/mm3 (4.2-5.4); White Blood Count 6.9 K/mm3 (4.4-11.0)
--- NOTE | 2022-08-18 10:25 | RAD_ITS ---
STUDY: X-RAY CHEST REASON FOR EXAM: Female, 57 years old. Dyspnea TECHNIQUE: Frontal and lateral views of the chest COMPARISON: None. FINDINGS: The lungs are clear. There are no pleural effusions. There is no pneumothorax. The heart is normal in size. The visualized osseous structures are within normal limits. RAD/Chest PA and Lateral IMPRESSION: No acute thoracic pathology. Electronically Signed: Mauri Sanders MD at 11:03 EDT ,
[2022-08-18 10:34] LABS: Anion Gap 5 (5-15); BUN 9 mg/dL (7-18); Calcium,Total 8.8 mg/dL (8.5-10.1); Chloride 109 mmol/L (98-107); Creatinine, Serum 0.75 mg/dL (0.55-1.02); EST Glomerular Filtration Rate 85 mL/min (>60); Est Glom Filt Rate - Afr Amer 102 mL/min (>60); Estimated Creatinine Clearance 67.63 ml/min; Glucose 92 mg/dL (74-106); Potassium 3.8 mmol/L (3.5-5.1); Sodium Level 139 mmol/L (136-145)
[2022-08-18 10:57] VITALS: BP 122/64; PULSE 88; RESP 16; O2SAT 94
== END 2022-08-18 11:02 | disposition home or self-care (01) ==
PROVIDERS: Emergency Provider Emergency Medicine; PCP Student in an Organized Health Care Education/Training Program; Visit Provider Emergency Medicine
DX: J44.1 Chronic obstructive pulmonary disease with (acute) exacerbation (principal); Z79.52 Long term (current) use of systemic steroids; Z87.891 Personal history of nicotine dependence
CPT/HCPCS: 71046; 80048; 85025; 94640; 99285; A4216

== ENCOUNTER 2022-11-20 16:44 | Emergency (ER) | payer OTHER, SELFPAY ==
[2022-11-20] VITALS (13 sets, daily range): BP systolic 99–157; BP diastolic 60–89; PULSE 73–97; RESP 6–34; TEMP 35; O2SAT 93–100; BMI 29.0
--- NOTE | 2022-11-20 17:01 | EKG12_ITS ---
Test Reason : GENERAL Blood Pressure : / mmHG Vent. Rate : 071 BPM Atrial Rate : 071 BPM P-R Int : 150 ms QRS Dur : 092 ms QT Int : 434 ms P-R-T Axes : 038 -12 016 degrees QTc Int : 471 ms Normal sinus rhythm Incomplete right bundle branch block Nonspecific ST abnormality Abnormal ECG Confirmed by JANAK AKERS, CORA ([id number]), department editor SEBAS MACHUCA ([id number]) on 11/24/2022 12:55:42 PM Referred By: PL Confirmed By:CORA BRICENO MD
--- NOTE | 2022-11-20 17:06 | CT_ITS ---
STUDY: CT BRAIN WITHOUT CONTRAST REASON FOR EXAM: Female, 57 years old. Dizziness, nausea and vomiting. Hot flashes. RADIATION DOSAGE (If Supplied By Facility): CTDIvol = ( 44.99 ) mGy, DLP = ( 796.11 ) mGycm TECHNIQUE: Transaxial CT imaging of the brain was performed without administration of intravenous contrast material. Individualized dose optimization techniques were used for this CT. COMPARISON: No relevant priors. FINDINGS: Normal soft tissue structures. Normal calvarium. Normal size ventricles and extra-axial spaces for the patient''s age. Normal white matter tracts of the cerebral hemispheres. Normal basal ganglia and thalami. Normal brainstem. Normal cerebellum. There is no intracranial hemorrhage. There are no findings of an acute ischemic infarction. Normal visualized paranasal sinuses. CT/Brain/Head without Contrast IMPRESSION: Normal unenhanced CT scan of the brain. [employer] was utilized to assist in identifying pertinent positive findings in this case. Electronically Signed: Carlos Infante DO at 18:36 EDT Reading Location ID and State: [id number] Tel [phone], Service support ,
--- NOTE | 2022-11-20 17:08 | EX.ED.DYSGE1 ---
HPI History of Present Illness Chief Complaint: Nausea/Vomiting Informant: patient Narrative Narrative: Patient presents with vertigo, nausea vomiting, diaphoresis. Patient states she was at work she felt totally normal. She started getting a spinning sensation and dizziness. She states if she closed her eyes it got much worse. If she kept her eyes open it was a little bit better. She then developed some nausea vomiting and dry heaves. She also started sweating when she did this. Her coworkers got her in the restroom but she started and did fall. She did not pass out. This was not syncope. This was falling due to her dizziness. She did not hurt herself in the fall. She states that now and at no time has she had any pain in any area of her body including headache chest abdomen or back. Coworkers that are with her states that she never said she had pain. Patient has had vertigo before but it is never been to this degree. She has no change in medications. No illnesses of significance run in the family other than heart disease. But she has never had heart disease. She is non-smoker. She has no blood pressure or diabetes or known cholesterol. She states even now if she closes her eyes she gets profoundly dizzy. [facility] Medical History Acute bronchitis Anemia Barretts esophagus Cervical cancer Chest congestion Chest pain Gastroenteritis Maxillary sinusitis, acute Mild chronic gastritis Tobacco use disorder Home Medications albuterol sulfate 90 mcg/actuation aerosol inhaler 1 - 2 puff inhalation Q4H PRN PRN Wheezing ##1 07/14/19 [Rx Last Taken Unknown] estradiol 1 mg tablet 1 mg PO DAILY 07/14/19 [History Last Taken Unknown] fluticasone propionate 50 mcg/actuation nasal spray,suspension 15.8 ml NS BID ##1 07/14/19 [Rx Last Taken Unknown] gabapentin 300 mg capsule 300 mg PO QHS 07/14/19 [History Last Taken Unknown] levothyroxine 50 mcg tablet 50 mcg PO DAILY 07/14/19 [History Last Taken Unknown] naproxen 500 mg tablet 500 mg PO BID PRN #20 tabs 07/14/19 [Rx Last Taken Unknown] pantoprazole 40 mg tablet,delayed release 40 mg PO DAILY 07/14/19 [History Last Taken Unknown] albuterol sulfate 90 mcg/actuation aerosol inhaler (Ventolin HFA) 1 - 2 puff inhalation Q4H PRN PRN Wheezing ##1 03/19/22 [Rx Last Taken Unknown] benzonatate 100 mg capsule 200 mg (2 x 100 mg) PO TID PRN PRN Cough #20 CAPSULES 03/19/22 [Rx Last Taken Unknown] levofloxacin 500 mg tablet 500 mg PO DAILY #7 tabs 03/19/22 [Rx Last Taken Unknown] azithromycin 250 mg tablet (Zithromax Z-Ze) See Rx Instructions PO .COMPLEX #6 tabs 08/18/22 [Rx Last Taken Unknown] prednisone 20 mg tablet 40 mg (2 x 20 mg) PO DAILY 7 days #14 tabs 08/18/22 [Rx Last Taken Unknown] meclizine 25 mg tablet 25 mg PO 4X/DAY PRN PRN Dizziness #20 tabs 11/20/22 [Rx Last Taken Unknown] Allergy/AdvReac Type Severity Reaction Status Date / Time pseudoephedrine AdvReac Other Verified 08/18/22 09:25 Family History Other Diabetes Heart disease Surgical History H/O knee surgery H/O: hysterectomy H/O: hysterectomy History of esophagogastroduodenoscopy (EGD) (~04/13/18) Social History Smoking Status: Former smoker alcohol intake: never ROS ROS ED ROS Narrative A complete review of systems was performed and is negative except as documented in the history of present illness. Some specific details below. Constitutional: No recent fevers or chills. No rigors. Patient has not generally felt ill. She felt fine prior to the onset of the dizziness. EYE: No discharge, visual complaints, or pain. ENT: No difficulty swallowing. No swelling. No sinus pressure or pain. No nasal discharge. No change in hearing. No ear pain. No muffled hearing. CV: No chest pain, pressure or aching. No palpitations or irregular beats. Patient has not been presyncopal or syncopal. Her fall was mechanical from being dizzy not syncope. Respiratory: No trouble breathing. No cough. No wheezing. No sputum production. No pain with breathing. GI: No abdominal pain. No nausea vomiting diarrhea. No blood in stool. : No frequency dysuria or hematuria. Musculoskeletal: No recent trauma. No pains. No swelling. Skin: No rash. Nondiaphoretic. Neuro: No weakness or numbness. No difficulty with speaking. No difficulty understanding speech. No visual loss. Please see history of present illness also. I also find out from her and the family that for the last few weeks in the morning she has had tremors. She states sometimes her hand will show tremors on both sides and her head will even shake a little bit. She has not had this evaluated before. But this was not associated with any other symptoms and none of the symptoms she has today. Endocrine: No polyuria or polydipsia. EXAM Physical Exam Narrative Exam Narrative: CONSTITUTIONAL: Patient is actually doing dry heaving when I walk in the room. She is not actively sweating but obviously she was diaphoretic recently as I can see some moisture on her hair and gown. HEENT: No notable trauma. Mucous membranes moist. No sinus tenderness. EYES: No conjunctival injection. No proptosis. No pain with range of motion. No pallor. I am not getting nystagmus but it is hard for her to hold still in going to position to do a good Romina-Hallpike maneuver. NECK: No meningismus. No JVD. No bruit. CARDIOVASCULAR: Regular rate. Regular rhythm. No notable murmur. No JVD. Not tachycardic or bradycardic and peripheral pulses are normal x4. RESPIRATORY: No respiratory distress. Breathing is unlabored. No wheezes. No rhonchi. No rales. No pain with a deep breath. GASTROINTESTINAL: Not distended. Bowel sounds are normal. No tenderness. No guarding. No rebound. No palpable mass. No bruit. Overall, very benign exam. GENITOURINARY: No tenderness over the bladder. No CVA tenderness. MUSCULOSKELETAL: Atraumatic. No peripheral edema. No cord. No tenderness along the deep venous system. No asymmetry. NEUROLOGICAL: Patient is alert and oriented. No focal deficit noted. NIH stroke scale is 0. She has profound sense of dizziness if she closes her eyes. She just has to hold her eyes open. But it is hard to have her do a Hallpike maneuver because she feels so nauseated right now. SKIN: No noted rashes. Clear recent diaphoresis. No vesicles noted. No notable pallor. PSYCHIATRIC: Patient is calm. Mood is appropriate. Const Vital Signs: 11/20/22 16:45 11/20/22 16:49 11/20/22 17:15 Temperature 95 F L Temperature Source Temporal Pulse Rate 75 Respiratory Rate 18 22 H Blood Pressure 157/86 H 151/89 H Blood Pressure Mean 109 108 Pulse Ox 98 100 Oxygen Delivery Method Room Air 11/20/22 17:45 11/20/22 18:00 11/20/22 18:15 Temperature Temperature Source Pulse Rate 84 74 76 Respiratory Rate 24 H 25 H 6 L Blood Pressure 138/72 H 142/73 H 129/81 H Blood Pressure Mean 91 90 97 Pulse Ox 93 96 99 Oxygen Delivery Method 11/20/22 18:45 11/20/22 19:00 Temperature Temperature Source Pulse Rate 77 73 Respiratory Rate 26 H 19 H Blood Pressure 116/82 H 114/87 H Blood Pressure Mean 94 96 Pulse Ox 96 98 Oxygen Delivery Method MDM MDM MDM Narrative Medical decision making narrative: Patient was rechecked. The nausea is getting much better. She is still very dizzy. I am now able to have her turn different directions. When I have her turn her head to the right she does not really get much vertigo. But when I turn to the left she gets more vertigo and she does get some horizontal nystagmus. This is still consistent with a peripheral vertigo. I will try to get her some meclizine. Patient CBC shows elevated white count at 12.7. This is mild elevation nonspecific and may be demargination with her symptoms and vomiting. Electrolytes show no marked abnormalities. Minimal elevation of glucose 111. Patient's liver function test were normal. Patient's troponin was normal at 3. Patient's lactic acid was up to 2.7. This may have been from recurrent episodes of nausea and vomiting over the last couple hours. Patient's chest x-ray and CT imaging are pending. My independent interpretation of the patient's single AP view chest x-ray shows no acute process and final reading is similar. My independent interpretation of the CT scan of her head without contrast is also negative as is the final reading. Patient's recheck. She is feeling better. We were able to get her some meclizine. This is helped even more. I went to check her again and she was actually on her phone doing well. We got her up and walked. She does get a little bit dizzy at times. But she states as long as she looks toward the right side she is much better. She states now this is acting like her prior episode of vertigo. She notes when she turns to the left she has much more problems and turning to the right. She would like to go home. We are going to recheck her lactate to make sure it has improved. As long as that is good we will get her home on meclizine. She is happy with this plan and would prefer to go home. We discussed returning with any headaches, fevers, pains in any area, worsening symptoms or other concerns Repeat lactate is normal. Patient's recheck. She is comfortable with the plan still doing well and we will get her home. Lab Data Attestation: I reviewed the patient's lab results. Labs: Laboratory Results - last 24 hr 11/20/22 11/20/22 17:05 20:30 WBC 12.7 H RBC 4.62 Hgb 13.6 Hct 41.6 MCV 90.0 MCH 29.4 MCHC 32.7 RDW Std Deviation 46.2 H RDW Coeff of Vahe 14.0 Plt Count 352 MPV 9.9 Immature Gran % (Auto) 0.300 Neut % (Auto) 58.3 Lymph % (Auto) 33.1 Morrill % (Auto) 6.4 Eos % (Auto) 1.2 Baso % (Auto) 0.7 Absolute Neuts (auto) 7.4 Absolute Lymphs (auto) 4.22 Nucleated RBC % 0 Differential Comment SCANNED Sodium 139 Potassium 3.6 Chloride 106 Carbon Dioxide 23.0 Anion Gap 10 BUN 12 Creatinine 0.99 Estim Creat Clear Calc 51.24 Est GFR (MDRD) Af Amer 74 Est GFR (MDRD) Non-Af 61 BUN/Creatinine Ratio 12.1 Glucose 111 H Lactic Acid 2.7 H* 0.9 Calcium 9.3 Total Bilirubin 0.30 AST 16 ALT 25 Alkaline Phosphatase 70 Troponin I High Sens 3 Total Protein 7.9 Albumin 4.2 Globulin 3.7 Albumin/Globulin Ratio 1.1 Radiography Diagnostic Testing: Clinical Impression(s) from Imaging Studies Brain CT 11/20/22 17:06 IMPRESSION: Normal unenhanced CT scan of the brain. AID[employer] was utilized to assist in identifying pertinent positive findings in this case. Electronically Signed: Carlos Infante DO at 18:36 EDT Reading Location ID and State: [address] [place] [address] Tel [phone], Service support , Chest X-Ray 11/20/22 18:25 IMPRESSION: No acute cardiopulmonary disease or interval change. Electronically Signed: Carlos Infante DO at 18:35 EDT Reading Location ID and State: [address] [place] [address] Tel [phone], Service support , EKG Initial EKG: Comments: My independent interpretation of her EKG shows a normal sinus rhythm with a rate of 71. No ectopy. Nonspecific ST and T wave changes possibly due to a right bundle branch block. No convincing evidence of ischemia. No evidence of infarct. CT interval, QRS duration and QTc are normal. Discharge Plan Triage Chief Complaint: Nausea/Vomiting ED Provider: Nabeel Morales Dx/Rx/DC Orders Clinical Impression: Positional vertigo, Nausea & vomiting Instructions: ED Vertigo, Unspecified Prescriptions: New meclizine 25 mg tablet 25 mg PO 4X/DAY PRN PRN (Reason: Dizziness) Qty: 20 0RF No Action estradiol 1 mg tablet 1 mg PO DAILY Patient Comments: take 1 tablet by mouth once daily levothyroxine 50 MCG tablet 50 mcg PO DAILY pantoprazole 40 MG tablet 40 mg PO DAILY gabapentin 300 MG capsule 300 mg PO QHS albuterol sulfate 1 INHALER inhaler 1 - 2 puff inhalation Q4H PRN PRN (Reason: Wheezing) Qty: 1 0RF naproxen 500 MG tablet 500 mg PO BID PRN Qty: 20 0RF fluticasone propionate 9.9 ML spray,suspension 15.8 ml NS BID Qty: 1 0RF benzonatate [benzonatate] 100 mg capsule 200 mg PO TID PRN PRN (Reason: Cough) Qty: 20 0RF levofloxacin [levofloxacin] 500 mg tablet 500 mg PO DAILY Qty: 7 0RF albuterol sulfate [Ventolin HFA] 90 mcg/actuation HFA aerosol inhaler 1 - 2 puff inhalation Q4H PRN PRN (Reason: Wheezing) Qty: 1 0RF prednisone 20 mg tablet 40 mg PO DAILY 7 Days Qty: 14 0RF azithromycin [Zithromax Z-Ze] 250 mg tablet See Rx Instructions .ROUTE .COMPLEX Qty: 6 0RF Rx Instructions: For 250 mg dose pack: take 500 mg today (day 1), then 250 mg for 4 days (days 2-5) Only start the antibiotic if you develop a productive cough of yellow, dark, mantilla or green sputum. Primary Care Provider: Patel Nolasco Referrals: Patel Nolasco, DO [Primary Care Provider] - 1-2 Days if not improving Disposition Disposition: Home, Self Care
[2022-11-20] MEDS: proMETHazine 25 MG/ML Syringe 12.5 MG IM (17:09)
[2022-11-20] MEDS: 0.9% Normal Saline 1,000 ML 1000 ML IV (17:09)
[2022-11-20] MEDS: LORazepam 2 MG/ML Syringe 1 MG IV (17:18)
[2022-11-20 17:27] LABS: Absolute Lymphocyte Count 4.22 X10^3/uL (0.83-4.51); Absolute Neutrophil Count 7.4 X10^3/uL (2.0-7.7); Basophil# 0.09 X10^3/uL; Basophil% 0.7 % (0-1); Eosinophil# 0.15 X10^3/uL; Eosinophils% 1.2 % (0-5); Hematocrit 41.6 % (37-47); Hemoglobin 13.6 g/dL (12.0-15.0); Lymphocyte # 4.22 X10^3/ul (0.83-4.51); Lymphocyte % 33.1 % (19-41); Mean Corp Hgb Conc 32.7 g/dL (32-36); Mean Corpuscular Hgb 29.4 pg (27.0-32.0); Mean Platelet Vol. 9.9 fl (6.2-12.0); Monocyte# 0.82 X10^3/uL; Monocyte% 6.4 % (0-10); NRBC Flagged by Analyzer 0 % (0-5); Neutrophil # 7.42 X10^3/uL (2.7-7.7); Neutrophil % 58.3 % (47-70); POSITIVE MORPHOLOGY YES; Platelet Count 352 K/mm3 (150-450); RBC Distribution Width SD 46.2 fl (35.1-43.9); Red Blood Count 4.62 M/mm3 (4.2-5.4); White Blood Count 12.7 K/mm3 (4.4-11.0)
[2022-11-20 17:40] LABS: Differential Indicated SCAN CRITERIA MET
[2022-11-20 17:44] LABS: ALB/GLOB Ratio 1.1 RATIO (0.9-2.4); AST(SGOT) 16 U/L (15-37); Alanine Aminotransfer ALT/SGPT 25 U/L (13-56); Albumin, Serum 4.2 g/dL (3.2-5.0); Alkaline Phosphatase 70 U/L (45-117); Anion Gap 10 (5-15); BUN 12 mg/dL (7-18); BUN/Creat Ratio 12.1 RATIO (10-20); Calcium,Total 9.3 mg/dL (8.5-10.1); Chloride 106 mmol/L (98-107); Creatinine, Serum 0.99 mg/dL (0.55-1.02); EST Glomerular Filtration Rate 61 mL/min (>60); Est Glom Filt Rate - Afr Amer 74 mL/min (>60); Estimated Creatinine Clearance 51.24 ml/min; Globulin 3.7 g/dL (2.2-4.2); Glucose 111 mg/dL (74-106); Lactic Acid 2.7 mmol/L (0.4-1.9); Potassium 3.6 mmol/L (3.5-5.1); Protein, Total 7.9 g/dL (6.4-8.2); Sodium Level 139 mmol/L (136-145); Troponin-I HS 3 pg/mL (3.0-54.0)
[2022-11-20 18:03] LABS: Differential Comment SCANNED
--- NOTE | 2022-11-20 18:25 | RAD_ITS ---
STUDY: X-RAY CHEST REASON FOR EXAM: Female, 57 years old. Hot flashes. Nausea and vomiting. Denies chest pain. Fall. TECHNIQUE: Single AP portable view of the chest. COMPARISON: August 18, 2022. FINDINGS: The lungs are clear and expanded. There is no demonstrated pleural abnormality. Normal size heart. Normal mediastinum and jose. Normal visualized pulmonary arteries. Normal visualized aortic arch and descending thoracic aorta. Normal visualized thoracic spine. Normal visualized ribs, clavicles, and shoulders. There is no demonstrated abnormality of the visualized soft tissue structures of the upper abdomen. RAD/Chest 1 View (Portable) IMPRESSION: No acute cardiopulmonary disease or interval change. Electronically Signed: Carlos Infante DO at 18:35 EDT ,
[2022-11-20] MEDS: Meclizine HCl 25 MG Tablet PO ×2 (18:41→22:04)
[2022-11-20] MEDS: 0.9% Normal Saline 1,000 ML 999 ML IV (18:41)
[2022-11-20 21:12] LABS: Reflex Lactate? Y
[2022-11-20 21:35] LABS: Lactic Acid 0.9 mmol/L (0.4-1.9)
== END 2022-11-20 22:10 | disposition home or self-care (01) ==
PROVIDERS: Emergency Provider Emergency Medicine; PCP Student in an Organized Health Care Education/Training Program; Visit Provider Emergency Medicine
DX: R42 Dizziness and giddiness (principal); R11.2 Nausea with vomiting, unspecified; Z87.891 Personal history of nicotine dependence
CPT/HCPCS: 70450; 71045; 80053; 83605; 84484; 85025; 93005; 96361; 96372; 96374; 99285; J7030; J7050; A4216

== ENCOUNTER 2024-11-30 13:55 | Emergency (ER) | payer OTHER, SELFPAY ==
[2024-11-30 13:57] VITALS: BP 139/81; PULSE 83; RESP 18; TEMP 36.9; O2SAT 96; BMI 26.0
--- NOTE | 2024-11-30 14:28 | EDS_ITS ---
HPI History of Present Illness Chief Complaint: Headache Detail of Chief Complaint: Thunderclap headache November 23 with nausea vomiting and near syncope Informant: patient Onset/Context/Timing Onset: Days (Onset November 23 and has not subsided) Context: Sudden Timing: Continuous Quality -Headache: Positive for Throbbing Location: Right parietal Current Severity: Moderate Maximum Severity: Severe Worsened by: Right Relieved by: Nothing Associated Symptoms/Injury Associated Symptoms: Positive for Nausea, Vomiting and Photophobia; Negative for Fever, Sore Throat, Sinus Pressure, Numbness, Tingling, Preceding Aura, Visual Changes, Blurred Vision or Visual Loss Injury - COHN: Negative for Direct Trauma Narrative Narrative: Patient is a 59-year-old woman. She has history of tobacco use, hypothyroidism, GERD, hormonal therapy for postmenopausal symptoms who presents with thunderclap headache that started Thursday evening November 23. The headache has been persistent since onset. It is located on the right side. There is photophobia. She does report nausea vomit time of the headache with near syncope. She has had con tinuous nausea. She states today she had dry heaves. Last week November 24 and she had nausea and vomiting. She had no vomiting this past Thursday, Thursday or Thursday. To her knowledge there is no family history of subarachnoid hemorrhage or aneurysm of the brain. She denies history of hypertension. She denies neck pain or neck stiffness she denies paresthesia, anesthesia or motor weakness upper or lower extremity. She states she feels dizzy. When asked to define dizziness she responded I feel like I am in a pass out . She denies spinning. Patient does not have history of headaches of any type. She states she has not had a headache in some time. She states she is never had a headache like this. Prior similar symptoms: No Recent Illness/Hospitalization: No PFSH PFS Medical History Barretts esophagus Mild chronic gastritis Gastroenteritis Chest pain Acute bronchitis Chest congestion Maxillary sinusitis, acute Cervical cancer Anemia Tobacco use disorder Home Medications ?Medication ?Instructions ?Recorded ?Last Taken ?Type albuterol sulfate 90 mcg/actuation 1 - 2 puff inhalati on Q4H PRN PRN 07/14/19 Unknown Rx aerosol inhaler Wheezing ##1 estradiol 1 mg tablet 1 mg PO DAILY 07/14/19 Unkno wn History fluticasone propionate 50 15.8 ml NS BID ##1 07/14/19 Unknown Rx mcg/actuation nasal spray,suspension gabapentin 300 mg capsule 300 mg PO QHS 07/14/19 Unkno wn History levothyroxine 50 mcg tablet 50 mcg PO DAILY 07/14/19 U nknown History naproxen 500 mg tablet 500 mg PO BID PRN #20 tabs 0 07/14/19 Unknown Rx pantoprazole 40 mg tablet,delayed 40 mg PO DAILY 07/14 Unknown History release meclizine 25 mg tablet 25 mg PO 4X/DAY PRN PRN Dizz iness 11/20/22 Unknown Rx #20 tabs amoxicillin 875 mg-potassium 1 tab PO BID #20 tabs 08/15 Unknown Rx clavulanate 125 mg tablet hydrocodone-acetaminophen 5-325mg 1 tab PO Q6H PRN PRN Pain 3 days 11/30/24 Unknown Rx 5mg-325mg #10 TABLETS Allergy/AdvReac Type Severity Reaction Status Date / Time No Known Allergies Allergy Verified 11/30/24 13:55 Family History Other Diabetes Heart disease Surgical History History of esophagogastroduodenoscopy (EGD) (~04/13/18) H/O: hysterectomy H/O knee surgery H/O: hysterectomy Social History (Updated 11/30/24 @ 14:40 by Siria Del Rio) housing: house Smoking Status: Former smoker alcohol intake: never ROS ROS ED Constitutional Constitutional ED: Denies chills, fever(s), subjective, sweats or weight loss Eyes Eyes: Denies blurry vision, change in vision or diplopia ENT ENT ED: Denies ear pain, rhinorrhea or sore throat Cardiovascular Cardiovascular: Denies chest pain, orthopnea, palpitations or racing heartbeat Respiratory/Chest Respiratory/Chest: Denies cough, dyspnea, dyspnea on exertion or orthopnea Gastrointestinal Gastrointestinal: Reports nausea and vomiting; Denies abdominal pain, constipation, diarrhea or melena Genitourinary Genitourinary ED: Denies dysuria, hematuria or urinary frequency Musculoskeletal Musculoskeletal: Denies arthralgias, myalgias or neck pain Integumentary Denies rash Neurologic Neurologic: Reports headache(s) and other Details: Detailed HPI narrative ; Denies paresthesias or weakness Psychiatric Psychiatric: Denies anxiety Endocrine Endocrinology: Denies polydipsia, polyphagia or polyuria Hematologic/Lymphatic Hematologic/Lymphatic: Denies easy bleeding or easy bruising EXAM Physical Exam Const Vital Signs: 11/30/24 13:57 Temperature 98.5 F Temperature Source Oral Pulse Rate 83 Respiratory Rate 18 Blood Pressure 139/81 H Blood Pressure Mean 100 Pulse Ox 96 Oxygen Delivery Method Room Air Positive well nourished and well developed Constitutional Narrative: Patient appears uncomfortable and not well. The lights in the room are off when I entered. General Appearance ED: well developed; Negative for pallor HEENT Reports normocephalic, TM's clear and moist mucous membranes atraumatic; Negative for tenderness, temporal artery tenderness or vesicular rash Face and Sinus: Negative for sinus tenderness Tympanic Membrane ED: Yes TM's clear Eyes PERRL and EOMs intact bilaterally General Eye ED: Negative for pale conjunctiva or scleral icterus Neck no lymphadenopathy, supple, no meningeal signs and no JVD Resp normal respiratory effort and clear to auscultation bilaterally Cardio regular rate, regular rhythm, S1 normal heart sound, S2 normal heart sound and no murmurs GI non-tender and non-distended Auscultation: normoactive bowel sounds Palpation: soft Extremity normal to inspection, full ROM and normal capillary refill Neuro oriented x3, CN's II-XII intact bilaterally and no sensory deficits noted Ever Coma Scale: document GCS findings Spontaneous Obeys Commands Oriented 15 Sensorium / Orientation: awake and alert Coordination / Balance: [id number] test normal Speech: speech normal Motor Exam: strength 5/5 throughout Psych mental status grossly normal Skin General Skin Exam: Negative for jaundice or pallor Lesions: no lesions Rashes: no rashes MDM MDM MDM Narrative Medical decision making narrative: Patient presents with thunderclap headache that started 8 days ago. Differential diagnosis is vascular headache, subarachnoid hemorrhage, intracranial aneurysm, symptoms not consistent or suggestive of vasculitis. She has reported history of sinus infections however she has no bundle, ethmoid or maxillary sinus tenderness and her pain is located right parietal area. Will obtain CT of the head to assess for hemorrhage and CTA of the head to assess for aneurysm. If patient has a small hemorrhage it may not be seen since she is 8 days out. Since there is concern this there may be a hemorrhage she was not treated with ketorolac. Of note she has been taking ibuprofen every 4 hours with no improvement. Lab Data Attestation: I reviewed the patient's lab results. Lab results narrative: CBC is unremarkable. Basic metabolic panel is unremarkable. Labs: Laboratory Results - last 24 hr 11/30/24 14:34 WBC 10.6 RBC 4.33 Hgb 12.8 Hct 39.0 MCV 90.1 MCH 29.6 MCHC 32.8 RDW Std Deviation 46.4 H RDW Coeff of Vahe 14.0 Plt Count 275 MPV 9.4 Immature Gran % (Auto) 0.400 Neut % (Auto) 61.6 Lymph % (Auto) 29.4 [place] % (Auto) 6.3 Eos % (Auto) 1.8 Baso % (Auto) 0.5 Absolute Neuts (auto) 6.6 Absolute Lymphs (auto) 3.12 Nucleated RBC % 0 Sodium 140 Potassium 4.2 Chloride 107 Carbon Dioxide 22.4 Anion Gap 10 BUN 13 Creatinine 0.69 L Estim Creat Clear Calc 79.54 Est GFR (MDRD) Non-Af 99 BUN/Creatinine Ratio 19.3 Glucose 96 Calcium 8.9 Radiography Diagnostic Testing: Clinical Impression(s) from Imaging Studies Head CTA 11/30/24 14:45 IMPRESSION: Unremarkable Reading Location: [place] [id number] CT of the head without contrast and CTA of the head reveals no evidence of hemorrhage, aneurysm. Awaiting formal read by radiologist, 1506 furthermore, there is no evidence of frontal, maxillary or sphenoid sinusitis. Treatment and Re-Evaluation Narrative: CTA of the head was reviewed by me. There is no evidence of hemorrhage, aneurysm, there is no evidence of ethmoid, maxillary, sphenoid or frontal sinusitis. Patient was reassessed at 1530. She states her headache is gone. Plan is to discharge to home with appropriate home-going instructions. Discharge Plan Triage Chief Complaint: Headache ED Provider: Floyd Kauffman Dx/Rx/DC Orders Clinical Impression: Headache, primary thunderclap, Acute intractable headache, Nausea & vomiting Instructions: Understanding Headache Pain Prescriptions: New hydrocodone-acetaminophen 5-325 mg tablet 1 tab PO Q6H PRN PRN (Reason: Pain) 3 Days Qty: 10 0RF No Action amoxicillin-pot clavulanate 875-125 mg tablet 1 tab PO BID Qty: 20 0RF estradiol 1 mg tablet 1 mg PO DAILY Patient Comments: take 1 tablet by mouth once daily levothyroxine 50 MCG tablet 50 mcg PO DAILY pantoprazole 40 MG tablet 40 mg PO DAILY gabapentin 300 MG capsule 300 mg PO QHS albuterol sulfate 1 INHALER inhaler 1 - 2 puff inhalation Q4H PRN PRN (Reason: Wheezing) Qty: 1 0RF naproxen 500 MG tablet 500 mg PO BID PRN Qty: 20 0RF fluticasone propionate 9.9 ML spray,suspension 15.8 ml NS BID Qty: 1 0RF meclizine 25 mg tablet 25 mg PO 4X/DAY PRN PRN (Reason: Dizziness) Qty: 20 0RF Primary Care Provider: Patel Nolasco Referrals: Patel Nolasco, [Primary Care Provider] - 3-5 Days if not improving Activity Restrictions/Additional Instructions: Take 4 ibuprofen tablets every 8 hours for the next 24 to 48 hours Print Language: Tamazight Disposition Disposition: Home, Self Care
[2024-11-30 14:44] LABS: Hematocrit 39.0 % (37-47); Hemoglobin 12.8 g/dL (12.0-15.0); Immature Granulocytes Count 0.040 X10^3/uL (0.0-0.0); Mean Corp Hgb Conc 32.8 g/dL (32-36); Mean Corpuscular Volume 90.1 fL (81-99); Mean Platelet Vol. 9.4 fl (6.2-12.0); NRBC Flagged by Analyzer 0 % (0-5); Platelet Count 275 K/mm3 (150-450); RBC Distribution Width CV 14.0 % (11.6-14.6); RBC Distribution Width SD 46.4 fl (35.1-43.9); Red Blood Count 4.33 M/mm3 (4.2-5.4); White Blood Count 10.6 K/mm3 (4.4-11.0)
--- NOTE | 2024-11-30 14:45 | CT_ITS ---
PROCEDURE: CTA HEAD W/WO CONTRAST 11/30/2024 REASON FOR EXAM: THUNDERCLAP HEADACHE, NAUSEA VOMITING TECHNIQUE: CTA HEAD W/WO CONTRAST Multiplanar Sagittal and Coronal images were obtained. CONTRAST: Isovue 370 VOLUME: 100 mL One or more dose reduction techniques were used (e.g., Automated exposure control, adjustment of the mA and/or kV according to patient size, use of iterative reconstruction technique). RADIATION DOSE SUMMARY: CTDlvol: 28 mGy DLP: 1227.8 mGycm COMPARISON: Prior CT scan of the head dated November 20, 2022. FINDINGS: [place]: [place] anatomy is normal Anuerysm or AVM: Unremarkable Distal internal carotid arteries: Unremarkable Anterior cerebral arteries: Unremarkable Middle cerebral arteries: Unremarkable Vertebral arteries: Unremarkable Basilar artery: Unremarkable Posterior cerebral arteries: Unremarkable Other major branches of the posterior circulation: Unremarkable Major venous structures: Unremarkable Non-vascular findings: On the unenhanced examination of the brain, there is no evidence of subarachnoid hemorrhage. CT/CTA Head W/WO Contrast IMPRESSION: Unremarkable Reading Location: [place] [id number]
[2024-11-30 15:25] LABS: Anion Gap 10 (5-15); BUN 13 mg/dL (4-19); BUN/Creat Ratio 19.3 RATIO (10-20); Calcium,Total 8.9 mg/dL (7.6-11.0); Carbon Dioxide 22.4 mmol/L (21.0-32.0); Chloride 107 mmol/L (98-108); Estimated Creatinine Clearance 79.54 ml/min (50-250); Glucose 96 mg/dL (70-99); Potassium 4.2 mmol/L (3.3-5.1)
[2024-11-30 15:40] VITALS: BP 120/76; PULSE 70; RESP 18; TEMP 36.9; O2SAT 96
== END 2024-11-30 15:40 | disposition home or self-care (01) ==
PROVIDERS: Emergency Provider Emergency Medicine; PCP Student in an Organized Health Care Education/Training Program; Referring Provider Emergency Medicine; Visit Provider Emergency Medicine
DX: G44.53 Primary thunderclap headache (principal); R11.2 Nausea with vomiting, unspecified; E03.9 Hypothyroidism, unspecified; R55 Syncope and collapse; N95.1 Menopausal and female climacteric states; K21.9 Gastro-esophageal reflux disease without esophagitis; Z79.890 Hormone replacement therapy; Z79.899 Other long term (current) drug therapy; Z87.891 Personal history of nicotine dependence
CPT/HCPCS: 70496; 80048; 85025; 96374; 96375; 99283; Q9967; A4216; J2405